=== PATIENT | male | born 1950 | race Two or more races ===

== ENCOUNTER 2019-03-23 02:14 | Inpatient (IN) | payer MEDICARE, MEDICAID ==
[2019-03-23] VITALS (56 sets, daily range): BP systolic 59–147; BP diastolic 41–109
[~2019-03-23] VITALS: Ht 170.2 cm; Wt 80.7 kg
--- NOTE | 2019-03-23 02:14 | NUR ---
PT BIB RA WITH A C/O RESP DISTRESS FROM HOME. PT ARRIVED ON BIPAP, TACHYPNEIC, RETRACTIONS NOTED, ACCESSORY MUSCLES NOTED. PT WAS ONLY ABLE TO SAY A FEW WORDS IN THE FIELD. PT HAS AN 18G LAC LAUNDRY PRESS OPERATOR. IV IS PATENT AND BENIGN. PT WAS PLACED ON THE MONITOR AND CONTINUOUS PULSE OX. RT IS AT THE BEDSIDE. DR. TURNER IS AT THE BEDSIDE.
--- NOTE | 2019-03-23 02:19 | NUR ---
18G IV STARTED IN RAC.
[2019-03-23] MEDS ORDERED: NTG 50 MG/D5W250 ML BOTTL 250 ML IV ONE ×2 (02:27→02:30)
[2019-03-23] MEDS ORDERED: FUROSEMIDE 40 MG/4 ML VIAL IV ONE (02:30)
[2019-03-23] MEDS ORDERED: FUROSEMIDE 40 MG/4 ML VIAL ONE (02:34)
--- NOTE | 2019-03-23 02:35 | NUR ---
ED, RN AT THE BEDSIDE STARTING NITRO DRIP
--- NOTE | 2019-03-23 02:35 | NUR ---
Note myra in ED - 03/23/19 at 0245 by [email or web address] PT STARTED ON NITRO DRIP AT 100MCG/MIN; 30ML/HR VIA 18G RAC.
[2019-03-23 02:42] LABS: BASOPHILS # (AUTO) 0.2 /CMM (0.0-0.2); BASOPHILS % (AUTO) 1.1 % (0.0-2.0); EOSINOPHILS % (AUTO) 6.8 % (0.0-6.0); HEMATOCRIT 41 % (39-51); HEMOGLOBIN 13.6 g/dL (13.5-17.5); LYMPHOCYTES # (AUTO) 6.5 /CMM (0.8-4.8); LYMPHOCYTES % (AUTO) 38.7 % (20.0-44.0); MEAN CORPUSCULAR HGB CONC 33 g/dl (31.0-36.0); MEAN CORPUSCULAR VOLUME 86 fL (80-96); MONOCYTES # (AUTO) 1.3 /CMM (0.1-1.30); MONOCYTES % (AUTO) 7.5 % (2.0-12.0); NEUTROPHILS # (AUTO) 7.7 /CMM (1.8-8.9); NEUTROPHILS % (AUTO) 45.9 % (43.0-81.0); PLATELET COUNT (AUTO) 276 /CMM (150-450); WHITE BLOOD COUNT (AUTO) 16.8 K/uL (4.3-11.0)
[2019-03-23] MEDS ORDERED: CLOP75TA15 PO (02:42)
--- NOTE | 2019-03-23 02:43 | NUR ---
Note myra in EDM - 03/23/19 at 0249 by [email or web address] NITRO DRIP INCREASED BY ED, RN TO 150MCG/MIN; 145ML/HR
--- NOTE | 2019-03-23 02:47 | NUR ---
CXR IN PROGRESS AT THE BEDSIDE.
[2019-03-23 02:51] LABS: CALCIUM, SERUM 8.9 mg/dL (8.5-10.1); CREATININE 2.8 mg/dL (0.6-1.3); POTASSIUM 4.2 mmol/L (3.5-5.1)
[2019-03-23] MEDS ORDERED: LIDOCAINE 2% JEL UROJET 10 ML MM ONE ×2 (02:51→03:00)
[2019-03-23 02:54] LABS: ABG BASE EXCESS -14.2 mmol/L; ABG OXYGEN SATURATION 93.5 % (92.0-98.5); ABG PCO2 81.4 mmHg (35.0-45.0); ABG PO2 106.7 mmHg (75.0-100.0); AaDO2 524.9 mmHg; COHb 0.5 % (0.5-1.5); SITE, ABG Right Radial
--- NOTE | 2019-03-23 02:55 | NUR ---
RT AND MD AT THE BEDSIDE PREPARING FOR INTUBATION. TIME OUT DONE. PT'S PH 6.9 AND CO2 81
--- NOTE | 2019-03-23 02:58 | NUR ---
20MG ETOMIDATE GIVEN VIA 18G LAC BY PEDRO TORRES
[2019-03-23] MEDS ORDERED: PROPOFOL 100 ML ONE ×2 (02:59→12:06)
--- NOTE | 2019-03-23 02:59 | NUR ---
100MG SUCC GIVEN IVP VIA 18G LAC BY PEDRO TORRES
--- NOTE | 2019-03-23 03:00 | NUR ---
DR TURNER INTUBATING
--- NOTE | 2019-03-23 03:01 | NUR ---
PT INTUBATED. 7.5 ETT AND 25@LIP + CO2 CHANGE NOTED.
[2019-03-23 03:03] LABS: ALBUMIN 3.5 g/dL (3.4-5.0); BILIRUBIN,DIRECT 0.1 mg/dL (0.0-0.2); BILIRUBIN,TOTAL 0.3 mg/dL (0.2-1.0); TOTAL PROTEIN, SERUM 8.1 g/dL (6.4-8.2)
[2019-03-23] MEDS ORDERED: FURO-144 PO (03:03)
[2019-03-23] MEDS ORDERED: ASPI-605 PO (03:03)
[2019-03-23] MEDS ORDERED: LOSA50TA3 PO (03:03)
[2019-03-23] MEDS ORDERED: ATOR20TA PO (03:03)
[2019-03-23] MEDS ORDERED: PANT40TA2 PO (03:03)
[2019-03-23] MEDS ORDERED: SITA100T PO (03:03)
--- NOTE | 2019-03-23 03:08 | NUR ---
LAMAR CATH INSERTED.
--- NOTE | 2019-03-23 03:14 | NUR ---
PT'S VENT SETTINGS: AC18 [id number] FIO2 90% PEEP 5
--- NOTE | 2019-03-23 03:18 | NUR ---
BED ASSIGNMENT 257
--- NOTE | 2019-03-23 03:20 | NUR ---
CALLING REPORT TO ICU. GARNETT MACHINE OPERATOR HELPER TO CALL BACK FOR REPORT.
--- NOTE | 2019-03-23 03:22 | NUR ---
@0239 PT PLACED ON BIPAP 20/5, 14, 100% PER DR. TURNER. ABG DONE AT 0248. NOTIFIED MD WITH CRITICAL VALUES. @[address] TURNER. 7.5 ETT SECURED AT 25CM AT THE LIP. GOOD COLOR CHANGE ON CO2 DETECTOR, EQUAL CHEST RISE, BILAT BREATH SOUND. PT PLACED ON 840 VENT, AC 18, 550, 90%, +5. VENT ALARMS SET AND AUDIBLE. AMBU BAG AT BEDSIDE. PT SX'D FOR LARGE AMT OF FOAMY WHITE SECRETIONS.
--- NOTE | 2019-03-23 03:25 | NUR ---
CXR IN PROGRESS AT THE BEDSIDE.
--- NOTE | 2019-03-23 03:51 | NUR ---
REPORT GIVEN TO PEDRO PEREZ
[2019-03-23] MEDS ORDERED: LORAZEPAM INJ 2 MG/ML VIAL ONE (04:16)
--- NOTE | 2019-03-23 04:26 | NUR ---
REPORT GIVEN TO PEDRO NANCE
[2019-03-23] MEDS ORDERED: ONDANSETRON HCL/PF 4 MG/2 ML VIAL IVP PRN (04:30)
[2019-03-23] MEDS ORDERED: NTG 50 MG/D5W250 ML BOTTL 250 ML IV PRN (04:30)
[2019-03-23] MEDS ORDERED: PROPOFOL 100 ML IV PRN (04:30)
[2019-03-23] MEDS ORDERED: SUCCINYLCHOLINE CHLORIDE 20 MG/ML VIAL IV ONE ×2 (04:30→09:23)
[2019-03-23] MEDS ORDERED: DEXTROSE 50%-WATER 50 ML DISP.SYRIN IV PRN (04:30)
[2019-03-23] MEDS ORDERED: LORAZEPAM INJ 2 MG/ML VIAL IV PRN (04:30)
[2019-03-23] MEDS ORDERED: LORAZEPAM INJ 2 MG/ML VIAL IV ONE (04:30)
[2019-03-23] MEDS ORDERED: ETOMIDATE 2 MG/ML VIAL IV ONE ×2 (04:30→09:23)
--- NOTE | 2019-03-23 04:49 | NUR ---
PT TRANSPORTED TO ICU
--- NOTE | 2019-03-23 04:51 | NUR ---
PT WAS TRANSPORTED TO ICU PER PROTOCOL WITH RT X2, EMT AND MYSELF.
[2019-03-23 05:15] LABS: ABG BASE EXCESS -8.6 mmol/L; ABG PCO2 60.7 mmHg (35.0-45.0); ABG PO2 154.8 mmHg (75.0-100.0); AaDO2 424.7 mmHg; COHb 0.1 % (0.5-1.5); MetHb 0.2 % (0.0-1.5); O2Hb 96.7 % (94.0-97.0); PEEP,BG 5 cm H2O; SITE, ABG Right Radial
--- NOTE | 2019-03-23 05:16 | NUR ---
POST INTUBATION ABG DONE. NOTIFIED MARISA VASQUEZ WITH THE RESULT.
[2019-03-23 05:21] LABS: BASOPHILS # (AUTO) 0.1 /CMM (0.0-0.2); BASOPHILS % (AUTO) 0.6 % (0.0-2.0); EOSINOPHILS % (AUTO) 0.5 % (0.0-6.0); HEMATOCRIT 35 % (39-51); HEMOGLOBIN 11.4 g/dL (13.5-17.5); LYMPHOCYTES # (AUTO) 0.8 /CMM (0.8-4.8); LYMPHOCYTES % (AUTO) 5.2 % (20.0-44.0); MEAN CORPUSCULAR HGB CONC 33 g/dl (31.0-36.0); MEAN CORPUSCULAR VOLUME 85 fL (80-96); MONOCYTES # (AUTO) 1.2 /CMM (0.1-1.30); MONOCYTES % (AUTO) 7.6 % (2.0-12.0); NEUTROPHILS # (AUTO) 13.4 /CMM (1.8-8.9); NEUTROPHILS % (AUTO) 86.1 % (43.0-81.0); PLATELET COUNT (AUTO) 234 /CMM (150-450); RED BLOOD CELL COUNT(AUTO) 4.07 MIL/uL (4.5-6.0); WHITE BLOOD COUNT (AUTO) 15.6 K/uL (4.3-11.0)
[2019-03-23 05:41] LABS: ALBUMIN 2.5 g/dL (3.4-5.0); BILIRUBIN,TOTAL 0.2 mg/dL (0.2-1.0); CALCIUM, SERUM 7.9 mg/dL (8.5-10.1); MAGNESIUM 1.7 mg/dL (1.8-2.4); PHOSPHORUS 6.4 mg/dL (2.5-4.9); POTASSIUM 4.7 mmol/L (3.5-5.1); TOTAL PROTEIN, SERUM 5.9 g/dL (6.4-8.2)
[2019-03-23 05:47] LABS: THYROID STIMULATING HORMONE 3.769 uIU/mL (0.358-3.74)
[2019-03-23] MEDS ORDERED: PIPERACILLIN /TAZOBACTAM 3.375 G in IV D5W 50 ML IV ONE (06:00)
[2019-03-23] MEDS ORDERED: VANCOMYCIN 1 GM in IV D5W 250ml IV ONE (06:00)
[2019-03-23] MEDS ORDERED: NOREPINEPHRINE 4 MG/4 ML AMPUL IV ONE (06:03)
[2019-03-23] MEDS ORDERED: PIPERACILLIN /TAZOBACTAM 3.375 G VIAL IV ONE (06:15)
[2019-03-23] MEDS: BLOOD SUGAR DIAGNOSTIC 1 EACH STRIP IN SCH ×3 (06:29→18:02)
[2019-03-23] MEDS: INSULIN REGULAR, HUMAN 100 UNIT/ML 3 ML VIAL SQ PRN ×3 (06:31→18:04)
[2019-03-23] MEDS ORDERED: VANCOMYCIN 1 GM VIAL ONE (06:32)
[2019-03-23] MEDS ORDERED: HEPARIN INFUSION/D5W 500 ML IV PRN ×2 (07:00→15:00)
[2019-03-23] MEDS ORDERED: FEE PK DOSING 1 MIN EA MC ONE (07:25)
--- NOTE | 2019-03-23 07:54 | NUR ---
RT Pt received orally intubated on mechanical ventilation with noted settings. Vent is plugged into red outlet. There is some noticeable mild abdominal muscle usage. No respiratory distress noted. Addendum: 03/23/19 at 1016 by LISA MCKINLEY RT Amended: Links added.
--- NOTE | 2019-03-23 07:59 | NUR ---
TALENT AGENT. RECEIVED THE PT FROM ER VIA AICHA. AT 0410 ORALLY INTUBATED. SEDATED WITH DIPRIVAN. AYE SOFT WRIST RESTRAINT FC PATENT. RT NARE NGT INTACT, IV RT AND LT HAND. IV NITRO AND DIPRIVAN STARTED FROM ER.
[2019-03-23] MEDS ORDERED: PHENYLEPHRINE 20 MG in IV D5W 250 ML IV PRN (08:00)
--- NOTE | 2019-03-23 08:00 | NUR ---
RN NOTE: RECEIVED BEDSIDE REPORT FROM THE LABORATORY SECRETARY NURSE MARISA REGARDING THE PATIENT'S CONDITION. PATIENT WAS RECEIVED INTUBATED WITH ETT 7.5 AND SECURED ON THE LIP AT 25 CM. NO RESPIRATORY DISTRESS NOTED WITH CURRENT MECHANICAL VENTILATOR SETTING SATURATING 100%. IMMEDIATE FAMILY WERE AT THE BEDSIDE. HOB ELEVATED. PATIENT WAS INFUSING DIPRIVAN AT 20MCG/MIN AND LEVOPHED AT 2MCG/MIN. PER REPORT, DR. BELL CAME EARLY THIS MORNING AND SAW THE PATIENT. MD WANTED TO SWITCH THE PATIENT TO NEOSYNEPHRINE. ORDER WAS PLACED AND PHARMACIST BETSY WAS MADE AWARE. NGT WAS PLACED AND PLACEMENT WAS VERIFIED BY FLUSHING AIR AND WAS CHECKED WITH ANOTHER NURSE, Abel MCCLOUD RN. PATIENT KEPT NPO AT THIS TIME PER MD ORDER. (R) AC 18G AND (L) HAND 18 G WAS NOTED INTACT AND PATENT INFUSING BOTH DIPRIVAN AND LEVOPHED DRIP. LAMAR CATHETER IN PLACED WITH MINIMAL YELLOW URINE DRAINING TO GRAVITY. BED ALARMED AND LOCKED AT ALL TIMES. NEEDS ANTICIPATED.
[2019-03-23] MEDS: NOREPINEPHRINE 16 MG in IV D5W 500 ML IV PRN ×2 (08:10→16:04)
[2019-03-23] MEDS: PROPOFOL 100 ML IV PRN ×2 (08:13→19:00)
--- NOTE | 2019-03-23 08:15 | NUR ---
RN NOTE: DR. MELENDREZ MADE AWARE OF THE TROPONIN LEVEL 4.333. AND NO NEW ORDER AT THIS TIME. PATIENT WAS PENDING FOR A HEPARIN DRIP DUE TO THE BASELINE PT/PTT LEVEL. AWARE.
--- NOTE | 2019-03-23 08:31 | NUR ---
RN NOTE: PATIENT HAS AN ORDER FOR A HEPARIN DRIP, AND A BASELINE PT/PTT STAT ORDER WAS PLACED. CALLED AND SPOKE WITH BENEDICTO, EXCELSIOR MACHINE OPERATOR FROM LAB AND MADE HER AWARE.
--- NOTE | 2019-03-23 08:35 | NUR ---
RN NOTE: INFORMED THE NECK BAND SETTER ROSA REGARDING THE ORDER FOR PICC LINE INSERTION FOR THE PATIENT. CONSENT WAS SIGNED BY THE PATIENT'S DAUGHTER WITNESSED BY THE NOC SHIFT NURSE AND WAS FILED TO THE PATIENT'S CHART.
[2019-03-23 08:44] LABS: THYROID STIMULATING HORMONE 3.181 uIU/mL (0.358-3.74)
--- NOTE | 2019-03-23 08:48 | NUR ---
RN NOTE: PAGED DR. MELENDREZ REGARDING THE PATIENT'S TROPONIN LEVEL 4.333. STILL AWAITING FOR THE PT/PTT STAT BLOOD DRAW FROM LAB. HEPARIN DRIP STILL ON HOLD. SPOKE WITH BENEDICTO QA REVIEWER AND SHE SAID THAT SHE WILL BE DRAWING IT SHORTLY.
[2019-03-23] MEDS ORDERED: ASPIRIN EC 81 MG TABLET.DR PO SCH (09:00)
[2019-03-23] MEDS ORDERED: FUROSEMIDE 40 MG/4 ML VIAL IV SCH (09:00)
[2019-03-23] MEDS ORDERED: Medication Not On Formulary EA (Atorvastatin Calcium (Lipitor) 20 MG) PO SCH (09:00)
[2019-03-23] MEDS ORDERED: PANTOPRAZOLE 40 MG TABLET.DR PO SCH (09:00)
[2019-03-23] MEDS ORDERED: LINAGLIPTIN 5 MG TABLET PO SCH (09:00)
[2019-03-23] MEDS ORDERED: PANTOPRAZOLE 40 MG VIAL IV SCH (09:00)
[2019-03-23] MEDS ORDERED: LOSARTAN POTASSIUM 50 MG TABLET PO SCH (09:00)
[2019-03-23] MEDS ORDERED: CLOPIDOGREL BISULFATE 75 MG TABLET PO SCH (09:00)
[2019-03-23] MEDS ORDERED: ATORVASTATIN 10 MG TABLET PO SCH (09:00)
--- NOTE | 2019-03-23 09:00 | NUR ---
RN NOTE: CONE TREATER WAS AT THE BEDSIDE DRAWING THE PT/PTT STAT. FAMILY AT THE BEDSIDE.
--- NOTE | 2019-03-23 09:03 | NUR ---
RN NOTE: DR. BELL WAS AT THE BEDSIDE AND HE WAS INFORMED THAT THE HEPARIN DRIP WAS STILL ON HOLD DUE TO THE PENDING PT/PTT RESULT. PER DR. BELL DO NOT START THE HEPARIN DRIP. PATIENT WILL BE SCHEDULE AT 12NN FOR A CARDIAC CATHETERIZATION UNDER THE SUPERVISION OF DR. KELLER. PATIENT'S FAMILY WAS AT THE BEDSIDE AND DR. BLEL WAS EXPLAINING THE PROCEDURE.
--- NOTE | 2019-03-23 09:06 | NUR ---
RN NOTE: SPOKE WITH DR. MELENDREZ REGARDING THE PATIENT'S LACTIC ACID REFLEX 2.3 AND INFORMED HER ABOUT THE (R) NARE NGT CLAMPED. PER MD, OK TO ADMINISTER PO MEDS THROUGH THE NGT BUT HOLD FOR NOW DUE TO THE PLANNED CARDIAC CATHETERIZATION WITH DR. KELLER @12NN.
[2019-03-23] MEDS ORDERED: FEE EMEERGENCY 1 MIN EA MC ONE (09:23)
[2019-03-23 09:41] LABS: ABG BASE EXCESS -6.3 mmol/L; ABG OXYGEN SATURATION 97.2 % (92.0-98.5); ABG PH 7.386 (7.350-7.450); ABG PO2 255.8 mmHg (75.0-100.0); AaDO2 211.1 mmHg; COHb 0.2 % (0.5-1.5); MetHb 0.2 % (0.0-1.5); O2Hb 96.8 % (94.0-97.0); PEEP,BG 5 cm H2O; SITE, ABG Right Radial; VT, ABG 600 mL
[2019-03-23] MEDS ORDERED: IV D5W 500 ML IV ONE (09:45)
[2019-03-23] MEDS: Magnesium 1GM/D5W 100ML PREMIX 100 ML IV SCH ×2 (09:56→11:20)
[2019-03-23] MEDS ORDERED: HEPARIN SODIUM, PORCINE 5000 UNITS/1 ML VIAL IV ONE (10:00)
[2019-03-23] MEDS ORDERED: LIDOCAINE HCL/PF 1% 30 ML SDV ONE (10:56)
[2019-03-23] MEDS ORDERED: IODIXANOL 150 ML IV ONE (10:56)
--- NOTE | 2019-03-23 11:20 | NUR ---
RN NOTE: PATIENT'S DAUGHTER MOODY WAS AT THE BEDSIDE AND SIGNED THE INFORMED CONSENT FOR THE CARDIAC CATHETERIZATION. FILED ON THE PATIENT'S CHART.
--- NOTE | 2019-03-23 11:30 | NUR ---
RN NOTE: Patient was brought to the lab director for the procedure explained by Dr. Helms at the bedside to the family. aBrry Salas was present upon patient's transport. Patient was accompanied by 2 RTs and 1 lab director nurse Nuvia. Patient was transported via ACLS protocol. Neosynephrine and Diprivan drip were both continuously given to the patient. Barry Salas brought the patient's full dentures with her. No belongings were left at the bedside.
--- NOTE | 2019-03-23 11:40 | NUR ---
RT Pt was transported to labor conciliator for procedure. Addendum: 03/23/19 at 1243 by LISA MCKINLEY RT Amended: Links added.
[2019-03-23] MEDS ORDERED: IV NS 0.9% 1,000 ML ONE (11:47)
[2019-03-23] MEDS ORDERED: PIPERACILLIN /TAZOBACTAM 3.375 G in IV D5W 100 ML IV SCH (12:00)
[2019-03-23] MEDS ORDERED: PIPERACILLIN /TAZOBACTAM 3.375 G in IV D5W 50 ML IV SCH (12:00)
[2019-03-23] MEDS ORDERED: MIDAZOLAM HCL 2 MG/2ML VIAL ONE (12:21)
[2019-03-23] MEDS ORDERED: IV SET PRIMARY PUMP SET 1 EA INFUS.SET MC ONE (12:32)
--- NOTE | 2019-03-23 14:12 | NUR ---
RT Pt brought back to ICU from fence laborer. Addendum: 03/23/19 at 1421 by LISA MCKINLEY RT Amended: Links added.
--- NOTE | 2019-03-23 14:15 | NUR ---
RN NOTE: RECEIVED PATIENT FROM INTERNAL CONTROLS MANAGER S/P CARDIAC CATHERIZATION UNDER DR. KELLER'S SUPERVISION. BEDSIDE REPORT WAS RECEIVED FROM PEDRO SALAS FROM INTERNAL CONTROLS MANAGER INCLUDING PEDRO JAMIL FROM INTERNAL CONTROLS MANAGER. PATIENT WAS INSERTED WITH A BALLOON PUMP AND A CONSERVATION OF RESOURCES COMMISSIONER WAS PROVIDED TO MONITOR THE PATIENT CLOSELY AT THE BEDSIDE. PATIENT WAS NOTED WITH GOOD CAPILLARY REFILL <3 SEC WITH GOOD PERIPHERAL PULSES ON THE (B) UPPER EXTREMITIES AND (L) LOWER PEDAL PULSE AND (R) PEDAL PULSE WAS NOTED WEAK. (R) LEG WAS KEPT STRAIGHT S/P CARDIAC CATHERIZATION AND DR. KELLER ORDERED TO CONTINUE LEVOPHED DRIP TO KEEP SBP >100MMHG. PATIENT WAS LYING FLAT ON THE BED WITH A (R) FEMORAL TRIPLE LUMEN CATHETER INSERTED FROM THE INTERNAL CONTROLS MANAGER. (R) SOFT LEG RESTRAINT WAS IN PLACED TO KEEP THE EXTREMITY STRAIGHT S/P CARDIAC CATH. PATIENT WAS RECEIVING DIPRIVAN 30MCG/MIN AND LEVOPHED 7MCG/MIN. PER PEDRO SALAS HE HAS BEEN UPDATING THE PATIENT'S DAUGHTER MOODY REGARDING THE STATUS OF THE PATIENT'S CONDITION.
--- NOTE | 2019-03-23 14:30 | NUR ---
RN NOTE: RECEIVED A PHONE CALL FROM PEDRO JAMIL FROM CARDIAC RESERVE OPERATOR AND PER VERBAL ORDER OF DR. ARIANNA MOORE TO START HEPARIN DRIP W Addendum: 03/23/19 at 1431 by KATHERYN MATA RN HEPARIN DRIP WITHOUT BOLUS. ORDER, NOTED AND CARRIED OUT.
--- NOTE | 2019-03-23 14:58 | NUR ---
RN NOTE: PATIENT WAS STARTED ON HEPARIN DRIP PER [facility] PROTOCOL WITH NO HEPARIN BOLUS PER DR. KELLER. SPOKE WITH [facility], PHARMACIST REGARDING THE ORDER. HEPARIN DOSE WAS STARTED RIGHT AWAY. WILL CONTINUE TO MONITOR FOR ANY BLEEDING.
--- NOTE | 2019-03-23 17:20 | NUR ---
RN NOTE: CALLED AND SPOKE WITH PEDRO PRECIADO FROM [facility] AND INFORMED HER THAT A REPORT REGARDING THE PATIENT TRANSFER WILL BE GIVEN. PER PEDRO PRECIADO SHE SPOKE WITH THE UNIT CHARGE NURSE ASPEN AND SHE WANTED THE TOP COATER NURSE TO GIVE REPORT TO THEM. PER SAM LOUISE NURSE THERE IS NO AVAILABLE NURSE THAT CAN TAKE THE REPORT AT THIS TIME. LILIANA, TAIL BOARD WORKER AND THE PATIENT'S DAUGHTER MOODY WERE INFORMED ABOUT IT. WILL RELAY TO THE TOP COATER NURSE REGARDING THE REPORT TO CALL AT [facility] INCLUDING THE DETAILS OF THE TRANSFER. CHARGE NURSE RUFFIN WAS ALSO AWARE.
--- NOTE | 2019-03-23 18:00 | NUR ---
RN NOTE: PATIENT'S LACTIC ACID WAS RESULTED 2.[address] MELENDREZ MADE AWARE OF IT. MD INFORMED OF THE LACTIC ACID TREND SINCE MORNING. MD WAS AWARE THAT PATIENT WAS PENDING TRANSFER TONIGHT AT [facility]. NO NEW ORDER WAS GIVEN AT THIS TIME.
--- NOTE | 2019-03-23 19:00 | NUR ---
RECEIVED PATIENT ORALLY INTUBATED,SEDATED ON PROPOFOL DRIP @ 30 MCG/MIN, + COUGH AND GAG,GRIMACES TO PAIN, NOT IN ANY DISTRESS, ON THE VENTILATOR ON AC MODE. ON LEVOPHED DRIP FOR BP SUPPORT INFUSING VIA RIGHT FEMORAL TRIPLE LUMEN CATH., IABP VIA RIGHT FEMORAL ON A 1:1 AUGMENTATION. PATIENT FOR TRANSFER TO [facility] FOR FURTHER MANAGEMENT AND EVALUATION OF FURTHER CARDIAC MANAGEMENT.
--- NOTE | 2019-03-23 19:25 | NUR ---
RN NOTE: BEDSIDE REPORT WAS GIVEN TO PM SHIFT NURSE FOR CONTINUITY OF CARE INCLUDING THE REPORT TO CALL AT [facility] AND ENDORSED ALL THE PAPERWORK COPIED FOR THE PATIENT'S TRANSFER. PARTIAL EXIT CARE WAS DONE AND THE CD IMAGING WAS ALSO ATTACHED TO THE DISCHARGE PACKET.
--- NOTE | 2019-03-23 20:30 | NUR ---
REPORT GIVEN TO [facility] MANAGER INTERN GERRY VASQUEZ.
--- NOTE | 2019-03-23 21:00 | NUR ---
TRANSPORT HERE TO PICK UOP THE PATIENT.REPORT GIVEN .
--- NOTE | 2019-03-23 22:00 | NUR ---
PTT=84.7 , PER PROTOCOL HOLD FOR 30 MINS. THEN RESUME 850 UNITS/HR( DECREASE RATE BY 150 UNITS FROM 1000 UNITS/HR)
--- NOTE | 2019-03-23 22:35 | NUR ---
PATIENT LEFT FOR [facility] BY [facility]. STABLE, BP=96/53,HR=68/RR=26,SAT=98%. LEVOPHED DRIP @ 8 MCG/MIN, PROPOFOL DRIP @ 30 MCG/MIN(SEDATED WITH RASS -3.HEPARIN DRIP RESUMED BACK @ 850 UNITS/HR. NO S/S OF ANY BLEEDING.
--- NOTE | 2019-03-23 22:45 | NUR ---
CALLED GERRY VASQUEZ @ [facility] TO UPDATE ON PATIENT STATUS .
[2019-03-24] MEDS ORDERED: VANCOMYCIN 1 GM in IV D5W 250 ML IV SCH (06:00)
== END 2019-03-23 23:19 | disposition short-term general hospital (02) | DRG 853 ==
LOC: ER 02:16 → ICU 03:27
PROVIDERS: ADMIT Registered Nurse; ATTEND Student in an Organized Health Care Education/Training Program
PROC: 5A1935Z Respiratory Ventilation, Less than 24 Consecutive Hours (ICD-10-PCS; principal; 2019-03-23)
PROC: 0BH17EZ Insertion of Endotracheal Airway into Trachea, Via Natural or Artificial Opening (ICD-10-PCS; 2019-03-23)
PROC: 5A09357 Assistance with Respiratory Ventilation, Less than 24 Consecutive Hours, Continuous Positive Airway Pressure (ICD-10-PCS; 2019-03-23)
PROC: 5A02210 Assistance with Cardiac Output using Balloon Pump, Continuous (ICD-10-PCS; 2019-03-23)
PROC: 4A023N7 Measurement of Cardiac Sampling and Pressure, Left Heart, Percutaneous Approach (ICD-10-PCS; 2019-03-23)
PROC: B211YZZ Fluoroscopy of Multiple Coronary Arteries using Other Contrast (ICD-10-PCS; 2019-03-23)
PROC: 06HY33Z Insertion of Infusion Device into Lower Vein, Percutaneous Approach (ICD-10-PCS; 2019-03-23)
DX: A41.9 Sepsis, unspecified organism (principal); J96.01 Acute respiratory failure with hypoxia; J96.02 Acute respiratory failure with hypercapnia; G92 Toxic encephalopathy; J69.0 Pneumonitis due to inhalation of food and vomit; N17.0 Acute kidney failure with tubular necrosis; R65.21 Severe sepsis with septic shock; J15.6 Pneumonia due to other Gram-negative bacteria; I21.A1 Myocardial infarction type 2; E44.0 Moderate protein-calorie malnutrition; I13.0 Hypertensive heart and chronic kidney disease with heart failure and stage 1 through stage 4 chronic kidney disease, or unspecified chronic kidney disease; E87.2 Acidosis; E86.0 Dehydration; E78.5 Hyperlipidemia, unspecified; I25.5 Ischemic cardiomyopathy; N18.9 Chronic kidney disease, unspecified; K21.9 Gastro-esophageal reflux disease without esophagitis; E11.22 Type 2 diabetes mellitus with diabetic chronic kidney disease; Z68.27 Body mass index [BMI] 27.0-27.9, adult; I25.10 Atherosclerotic heart disease of native coronary artery without angina pectoris; I25.82 Chronic total occlusion of coronary artery; I50.9 Heart failure, unspecified
CPT/HCPCS: 31720; 33967; 36415; 36600; 71045-TC; 80048-TC; 80053-TC; 80061-TC; 80076-TC; 82728-TC; 82803-TC; 82962-TC; 83540-TC; 83605-TC; 83735-TC; 83880; 84100-TC; 84439-TC; 84443-TC; 84484-TC; 85025-TC; 85610-TC; 85730-TC; 87040-TC; 87070-TC; 87081-TC; 93307-TC; 93452; 94002-TC; 94640-TC; 94760-TC; 94799-TC; 99082-TC; C1751; C1894; C9113; G0378; J0330; J1644; J1815; J1940; J2060; J2250; J2370; J2543; J3370; J3475; J3490; J7040; J7050; J7060; Q9967

== ENCOUNTER 2022-02-26 07:06 | Inpatient (IN) | payer MEDICARE, OTHER ==
[~2022-02-26] VITALS: Ht 172.7 cm; Wt 80.7 kg
[~2022-02-26 07:06] MED LIST: ASPI-605 PO; ATOR20TA PO; CLOP75TA15 PO; FURO-144 PO; LOSA50TA3 PO; PANT40TA2 PO; SITA100T PO
--- NOTE | 2022-02-26 07:25 | NUR ---
SUSAN Dunham FROM HOME FOR C.O SOB. SATTING 88% ON R/A. ON HD. LASTDIALYSIS ON FRIDAY
[2022-02-26] MEDS ORDERED: FUROSEMIDE 40 MG/4 ML VIAL ONE (07:27)
[2022-02-26] MEDS ORDERED: FUROSEMIDE 40 MG/4 ML VIAL IV ONE (07:30)
--- NOTE | 2022-02-26 07:30 | NUR ---
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
--- NOTE | 2022-02-26 07:40 | NUR ---
EKG DONE BY TECH
--- NOTE | 2022-02-26 07:45 | NUR ---
COVID SWAB COLLECTED AND SENT TO LAB
--- NOTE | 2022-02-26 07:56 | NUR ---
REGULATORY CONSULTANT AT BEDSIDE FOR XRAY
--- NOTE | 2022-02-26 08:00 | NUR ---
MOVE SHEET SUBMITTED.
--- NOTE | 2022-02-26 08:15 | NUR ---
DR VALE SPEAKING W/ PT AT BEDSIDE
[2022-02-26 08:22] LABS: CARBON DIOXIDE 23 mmol/L (21-32); CHLORIDE 102 mmol/L (98-107); GLUCOSE 157 mg/dL (74-106); POTASSIUM 5.4 mmol/L (3.5-5.1); SODIUM SERUM 143 mmol/L (136-145)
[2022-02-26 08:28] LABS: CREATININE 11.3 mg/dL (0.6-1.3); UREA NITROGEN, BLOOD 89 mg/dL (7-18)
[2022-02-26 08:30] LABS: BASOPHILS # (AUTO) 0.1 K/uL (0.0-0.2); BASOPHILS % (AUTO) 0.8 % (0.0-2.0); EOSINOPHILS % (AUTO) 3.6 % (0.0-6.0); HEMATOCRIT 33 % (39-51); HEMOGLOBIN 10.6 g/dL (13.5-17.5); LYMPHOCYTES # (AUTO) 1.6 K/uL (0.8-4.8); LYMPHOCYTES % (AUTO) 15.2 % (20.0-44.0); MEAN CORPUSCULAR HGB CONC 32 g/dl (31.0-36.0); MEAN CORPUSCULAR VOLUME 83 fL (80-96); MONOCYTES # (AUTO) 0.8 K/uL (0.1-1.30); MONOCYTES % (AUTO) 7.7 % (2.0-12.0); NEUTROPHILS # (AUTO) 7.5 K/uL (1.8-8.9); NEUTROPHILS % (AUTO) 72.7 % (43.0-81.0); PLATELET COUNT (AUTO) 208 K/uL (150-450); RED BLOOD CELL COUNT(AUTO) 4.02 MIL/uL (4.5-6.0); WHITE BLOOD COUNT (AUTO) 10.3 K/uL (4.3-11.0)
[2022-02-26 08:34] LABS: ALANINE AMINOTRANSFERASE 13 U/L (12-78); ALBUMIN 3.9 g/dL (3.4-5.0); ALKALINE PHOSPHATASE 118 U/L (46-116); ASPARTATE AMINOTRANSFERASE 10 U/L (15-37); BILIRUBIN,DIRECT 0.2 mg/dL (0.0-0.2); BILIRUBIN,TOTAL 0.4 mg/dL (0.2-1.0); TOTAL PROTEIN, SERUM 8.3 g/dL (6.4-8.2)
--- NOTE | 2022-02-26 08:39 | NUR ---
BUN 89 , CREA 11.3 MADE AWARE
--- NOTE | 2022-02-26 08:43 | NUR ---
TROPONIN 184 MADE AWARE
[2022-02-26] MEDS ORDERED: MAG HYDROX/AL HYDROX/SIMETH 30 ML UDC PO PRN (09:30)
[2022-02-26] MEDS ORDERED: MAGNESIUM HYDROXIDE 30 ML UDC PO PRN (09:30)
[2022-02-26] MEDS ORDERED: ZOLPIDEM TARTRATE 5 MG TABLET PO PRN (09:30)
[2022-02-26] MEDS ORDERED: Z GUARD REMEDY 4 OZ OINT TP PRN (09:30)
[2022-02-26] MEDS ORDERED: ACETAMINOPHEN 325 MG TABLET PO PRN (09:30)
[2022-02-26] MEDS ORDERED: ONDANSETRON HCL/PF 4 MG/2 ML VIAL IVP PRN (09:30)
--- NOTE | 2022-02-26 09:37 | NUR ---
dr. waite at bedside for eval
[2022-02-26] MEDS ORDERED: AMLO-212 PO (09:56)
[2022-02-26] MEDS ORDERED: METO25TA20 PO (09:56)
[2022-02-26] MEDS ORDERED: ISOS10TA2 PO (09:56)
[2022-02-26] MEDS ORDERED: AMIO200T5 PO (09:56)
[2022-02-26] MEDS ORDERED: INSU100V11 SQ (09:56)
[2022-02-26] MEDS ORDERED: HYDR-4077 PO (09:56)
--- NOTE | 2022-02-26 11:45 | NUR ---
tech at bedside for echocardiogram
--- NOTE | 2022-02-26 12:31 | NUR ---
GOT BED 324-1.
--- NOTE | 2022-02-26 12:43 | NUR ---
report given to tin senior ready to transfer
--- NOTE | 2022-02-26 13:08 | NUR ---
PT TRANSFERRED TO 324-1 VIA [facility] ACLS PROTOCOL. WARM HANDOFF GIVEN TO PEDRO NATH.
--- NOTE | 2022-02-26 13:10 | NUR ---
ADMISSION NOTE Received patient from ER via mervin. Report given by PEDRO Hough from ER. Patient is A/O x 3, forgetful. On O2 at 5 LPM via NC, complaining of SOB. Patient oriented to room and how to use the call light. VS taken as follows: BP 189/89, HR 75, Temp 38.7, RR, 20, SPO2 96% on [address] Stanford notified of patient's BP. Patient refused skin assessment at this time, was irritable and agitated because of SOB and was also complaining of chest pain, Dr. Stanford notified with that as well. All belongings accounted for, belonging sheet signed. Safety precautions in place: bed in low, locked position; siderails up x 2; call light within reach. Will continue to monitor. Addendum: 02/26/22 at 1949 by SOPHY FRANCISCO RN ADD: IV access on Right hand #22 SL, intact and patent. Tele monitor attached, showing SR, with 1st degree block.
[2022-02-26] MEDS: hydrALAZINE HCL 25 MG TABLET PO PRN (13:52)
[2022-02-26] MEDS ORDERED: NITROGLYCERIN PACKET 1 GM PACKET TOP PRN (14:00)
[2022-02-26] MEDS: MORPHINE SULFATE INJ 2 MG/ML DISP.SYRIN IV PRN (14:00)
[2022-02-26 16:00] VITALS: BP 178/79
[2022-02-26] MEDS ORDERED: EPOETIN ALFA-EPBX 10,000 UNIT/ML VIAL IV ONE (16:00)
--- NOTE | 2022-02-26 16:30 | NUR ---
RN NOTE Received critical value received from lab, Troponin level is 203. Dr. Stanford and Dr. Helms notified, no new orders at this time.
[2022-02-26] MEDS ORDERED: *INSULIN REGULAR(HUMULIN R)HUM 100 UNIT/ML VIAL SQ PRN (18:30)
[2022-02-26] MEDS ORDERED: DEXTROSE 50%-WATER 50 ML DISP.SYRIN IV PRN (18:30)
[2022-02-26] MEDS ORDERED: INSULIN REGULAR, HUMAN 100 UNIT/ML 3 ML VIAL SQ PRN (18:30)
--- NOTE | 2022-02-26 19:30 | NUR ---
PT RECEIVED RESTING IN BED WITH DAUGHTER AT BEDSIDE. A/OX3. FORGETFUL. WITH 02 VIA NC AT 5LPM. RT HAND IV ACCESS G#22 ON SL. SAFETY MEASURES IN PLACE. HOB SLIGHTLY ELEVATED, BED LOCKED IN LOWEST POSITION, SIDE RAILS UP X2, BED ALARM ON, CALL LIGHT WITHIN REACH. WILL CONTINUE PLAN OF CARE.
--- NOTE | 2022-02-26 19:49 | NUR ---
AUTOMOBILE ACCESSORIES SALESPERSON CLOSING NOTE Patient in bed, resting. A/O x 3, forgetful. On O2 at 5 LPM via NC, no s/s of distress noted. IV access on Right hand #22 SL, intact and patent. Patient currently on hemodialysis. KARISSA fistula noted. Patient reports decreased in chest pain and improved SOB. Safety precautions maintained: bed in low, locked position; siderails up x2; call light within reach. Will endorse to night guard nurse for AMY.
[2022-02-26 20:00] VITALS: BP 155/70
[2022-02-26] MEDS: ATORVASTATIN 40 MG TABLET PO SCH (22:03)
[2022-02-26] MEDS: BLOOD SUGAR DIAGNOSTIC 1 EACH STRIP VI SCH (22:03)
--- NOTE | 2022-02-26 23:26 | NUR ---
Pt's troponin is 279. MD notified.
[2022-02-27] VITALS: BP 186/84
[2022-02-27] MEDS: hydrALAZINE HCL 25 MG TABLET PO PRN ×2 (02:46→23:29)
--- NOTE | 2022-02-27 02:55 | NUR ---
BP 186/84. Prn Apresoline 25mg tab po given as ordered. Will continue to monitor.
[2022-02-27 04:00] VITALS: BP 178/72
--- NOTE | 2022-02-27 06:15 | NUR ---
PT ASLEEP IN BED. EASILY AWAKEN BY CALLING HIS NAME. A/OX3. FORGETFUL. WITH 02 VIA NC AT 5LPM. NO COMPLAINTS OF PAIN, NOT IN DISTRESS, RT HAND IV ACCESS G#22 ON SL. DUE MEDS AND PRN MEDS GIVEN NEEDED AND OREDERED. NEEDS ATTENDED. SAFETY MEASURES MAINTAINED. HOB SLIGHTLY ELEVATED, BED LOCKED IN LOWEST POSITION, SIDE RAILS UP X2, BED ALARM ON, CALL LIGHT WITHIN REACH. WILL ENDORSE TO NEXT NURSE ON DUTY FOR CONTINUITY OF CARE.
[2022-02-27 07:22] LABS: CALCIUM, SERUM 8.9 mg/dL (8.5-10.1); PHOSPHORUS 5.9 mg/dL (2.5-4.9)
[2022-02-27] MEDS ORDERED: PANTOPRAZOLE 40 MG TABLET.DR PO SCH (07:30)
[2022-02-27 07:44] LABS: BASOPHILS # (AUTO) 0.1 K/uL (0.0-0.2); BASOPHILS % (AUTO) 0.7 % (0.0-2.0); EOSINOPHILS % (AUTO) 1.2 % (0.0-6.0); HEMATOCRIT 30 % (39-51); HEMOGLOBIN 9.9 g/dL (13.5-17.5); LYMPHOCYTES # (AUTO) 0.5 K/uL (0.8-4.8); LYMPHOCYTES % (AUTO) 5.7 % (20.0-44.0); MEAN CORPUSCULAR HGB CONC 33 g/dl (31.0-36.0); MEAN CORPUSCULAR VOLUME 82 fL (80-96); MONOCYTES # (AUTO) 0.9 K/uL (0.1-1.30); MONOCYTES % (AUTO) 9.1 % (2.0-12.0); NEUTROPHILS # (AUTO) 7.9 K/uL (1.8-8.9); NEUTROPHILS % (AUTO) 83.3 % (43.0-81.0); PLATELET COUNT (AUTO) 174 K/uL (150-450); RED BLOOD CELL COUNT(AUTO) 3.66 MIL/uL (4.5-6.0); WHITE BLOOD COUNT (AUTO) 9.4 K/uL (4.3-11.0)
[2022-02-27 07:52] LABS: POTASSIUM 5.2 mmol/L (3.5-5.1)
[2022-02-27 07:57] LABS: CREATININE 8.3 mg/dL (0.6-1.3)
[2022-02-27 08:00] VITALS: BP 189/83
[2022-02-27] MEDS: BLOOD SUGAR DIAGNOSTIC 1 EACH STRIP VI SCH ×4 (08:44→21:36)
[2022-02-27] MEDS: METOPROLOL TARTRATE 25 MG TABLET PO SCH ×2 (08:45→17:25)
[2022-02-27] MEDS: CLOPIDOGREL BISULFATE 75 MG TABLET PO SCH (08:45)
[2022-02-27] MEDS: AMLODIPINE BESYLATE 5 MG TABLET PO SCH ×2 (08:46→17:26)
[2022-02-27] MEDS: ISOSORBIDE DINITRATE (20MG) 20 MG TABLET PO SCH ×2 (08:46→17:27)
[2022-02-27] MEDS: hydrALAZINE HCL 50 MG TABLET PO SCH ×3 (08:47→17:26)
[2022-02-27] MEDS: PANTOPRAZOLE 40 MG TABLET.DR PO SCH (08:47)
[2022-02-27] MEDS: MORPHINE SULFATE INJ 2 MG/ML DISP.SYRIN IV PRN (08:58)
[2022-02-27] MEDS ORDERED: hydrALAZINE HCL 50 MG TABLET PO SCH (09:00)
[2022-02-27] MEDS ORDERED: ISOSORBIDE DINITRATE (10MG) 10 MG TABLET PO SCH (09:00)
[2022-02-27] MEDS ORDERED: AMLODIPINE BESYLATE 5 MG TABLET PO SCH (09:00)
[2022-02-27] MEDS ORDERED: FUROSEMIDE 40 MG TABLET PO SCH (09:00)
[2022-02-27 12:00] VITALS: BP_SYST 141; BP_SYST 145; BP_DIAS 69; BP_DIAS 71
[2022-02-27 16:00] VITALS: BP_SYST 152; BP_SYST 155; BP_DIAS 68; BP_DIAS 76
--- NOTE | 2022-02-27 19:35 | NUR ---
SAP ABAP DEVELOPER CLOSING NOTE PATIENT RECEIVED IN BED AN AWAKE. A/OX4 AND ABLE TO VERBALIZE NEEDS. IV ACCESS REMAINS INTACT AND PATENT. SALINE LOCKED AT THIS TIME. PATIENT RECEIVED BEDSIDE HEMODIALYSIS ON SHIFT. 2.5L TAKEN OFF. PATIENT TOLERATED WELL. BS CHECKS STABLE SHIFT ON SHIFT @ 101 & 116; NO COVERAGE NEEDED. C/O GENERALIZED PAIN AND RECEIVED MORPHINE @ 0905. MEDICATION EFFECTIVE. BLOOD PRESSURES STABLE AND CONTROLLED ON SHIFT. SAFETY MEASURES INTACT WITH BED LOW AND LOCKED. CALL LIGHT WITHIN REACH. WILL CONT TO MONITOR
--- NOTE | 2022-02-27 19:40 | NUR ---
RETAIL CENTER RECEPTIONIST OPENING NOTE RECEIVED PT AWAKE IN BED. JUAN CARLOS AT BEDSIDE. A/O X4 AND ABLE TO MAKE NEEDS KNOWN. PT ON O2 @ 5LPM, TOLERATING WELL. NO SOB OR S/S OF RESPIRATORY DISTRESS. BREATHING EVEN AND UNLABORED. ON EXTERNAL CRATER AND PACKER READING SB 57 BPM. IV ACCESS R HAND 22G SL, INTACT AND PATENT. SAFETY PRECAUTIONS IN PLACE. BED IN LOWEST LOCKED POSITION, HOB ELEVATED, SIDE RAILS UP X2, AND CALL LIGHT AND TABLE WITHIN REACH. ALL NEEDS MET AT THIS TIME.
[2022-02-27 20:00] VITALS: BP 148/59
[2022-02-27] MEDS: ATORVASTATIN 40 MG TABLET PO SCH (21:27)
--- NOTE | 2022-02-27 23:31 | NUR ---
RN NOTE PT NOTED WITH BP 162/71 AND HR 60. ADMINISTERED HYDRALAZINE 25 MG FOR SBP > 160 ORDERED. ALL NEEDS MET AT THIS TIME.
[2022-02-28] VITALS: BP 162/71
[2022-02-28 04:00] VITALS: BP 153/60
[2022-02-28] MEDS: BLOOD SUGAR DIAGNOSTIC 1 EACH STRIP VI SCH ×3 (06:30→17:30)
--- NOTE | 2022-02-28 06:33 | NUR ---
MOTORCYCLE DELIVERER CLOSING NOTE PT AWAKE IN BED. A/O X4 AND ABLE TO MAKE NEEDS KNOWN. PT ON O2 @ 5LPM, TOLERATING WELL. NO SOB OR S/S OF RESPIRATORY DISTRESS. BREATHING EVEN AND UNLABORED. ON EXTERNAL MATTRESS MAKER READING SB 57 BPM WITH A FIRST DEGREE AV BLOCK. IV ACCESS R HAND 22G SL, INTACT AND PATENT. ALL DUE MEDS GIVEN ORDERED. SKIN ASSESSMENT COMPLETED WITH NEW ORDER FOR WOUND CONSULT. SAFETY PRECAUTIONS IN PLACE AT ALL TIMES. BED IN LOWEST LOCKED POSITION, HOB ELEVATED, SIDE RAILS UP X2, AND CALL LIGHT AND TABLE WITHIN REACH. ALL NEEDS MET AT THIS TIME AND WILL ENDORSE TO ONCOMING NURSE FOR AMY.
[2022-02-28 07:05] LABS: BASOPHILS # (AUTO) 0.1 K/uL (0.0-0.2); EOSINOPHILS % (AUTO) 4.7 % (0.0-6.0); HEMATOCRIT 30 % (39-51); HEMOGLOBIN 9.8 g/dL (13.5-17.5); LYMPHOCYTES # (AUTO) 1.3 K/uL (0.8-4.8); MEAN CORPUSCULAR HGB CONC 33 g/dl (31.0-36.0); MEAN CORPUSCULAR VOLUME 82 fL (80-96); NEUTROPHILS # (AUTO) 5.1 K/uL (1.8-8.9); NEUTROPHILS % (AUTO) 64.3 % (43.0-81.0); PLATELET COUNT (AUTO) 175 K/uL (150-450); RED BLOOD CELL COUNT(AUTO) 3.63 MIL/uL (4.5-6.0); WHITE BLOOD COUNT (AUTO) 7.9 K/uL (4.3-11.0)
[2022-02-28] MEDS ORDERED: EPOETIN ALFA-EPBX 10,000 UNIT/ML VIAL IV ONE ×2 (08:00→13:00)
[2022-02-28 08:03] LABS: CALCIUM, SERUM 8.9 mg/dL (8.5-10.1); CREATININE 7.2 mg/dL (0.6-1.3); POTASSIUM 4.7 mmol/L (3.5-5.1)
[2022-02-28 08:14] LABS: IRON, SERUM 30 ug/dl (50-175); TOTAL IRON BINDING CAPACITY 144 ug/dl (250-450)
[2022-02-28 08:27] VITALS: BP 130/60
[2022-02-28] MEDS: METOPROLOL TARTRATE 25 MG TABLET PO SCH ×2 (08:43→17:00)
[2022-02-28] MEDS: ISOSORBIDE DINITRATE (20MG) 20 MG TABLET PO SCH ×2 (08:43→17:00)
[2022-02-28] MEDS: hydrALAZINE HCL 50 MG TABLET PO SCH ×3 (08:44→17:00)
[2022-02-28] MEDS: PANTOPRAZOLE 40 MG TABLET.DR PO SCH (08:44)
[2022-02-28] MEDS: AMLODIPINE BESYLATE 5 MG TABLET PO SCH ×2 (08:44→17:00)
[2022-02-28] MEDS: CLOPIDOGREL BISULFATE 75 MG TABLET PO SCH (08:44)
[2022-02-28] MEDS ORDERED: GABAPENTIN 100 MG CAPSULE PO SCH (09:00)
--- NOTE | 2022-02-28 10:43 | NUR ---
WOUND CARE CONSULT: PT PRESENTS WITH WOUND TO RT UPPER BACK, PRESENT ON ADMISSION. PT HAVING DIALYSIS AT THIS TIME. PT STATES THAT HE HAD THIS WOUND PREVIOUSLY AND IT COMES AND GOES. RECOMMENDATIONS MADE FOR SKIN PROTECTION AND WOUND CARE. DISCUSSED WITH NURSING STAFF. DR PAUL FOWLER CALLED FOR SURGICAL CONSULT. MD IN AGREEMENT WITH PLAN OF CARE.
[2022-02-28] MEDS ORDERED: NEOMY SULF/BACITRAC ZN/POLY 15 GM TUBE TP SCH (11:00)
[2022-02-28 11:57] VITALS: BP 129/58
[2022-02-28] MEDS ORDERED: GABA100C PO (13:25)
[2022-02-28] MEDS ORDERED: HYDR-4077 PO (13:25)
[2022-02-28] MEDS ORDERED: AMLO-212 PO (13:25)
[2022-02-28] MEDS ORDERED: ISOS20TA8 PO (13:25)
--- NOTE | 2022-02-28 17:48 | NUR ---
PLATE GRINDER NOTE PATIENT DISCHARGED FROM UNIT @ 1745 VIA WHEELCHAIR. ACCOMPANIED BY DAUGHTER. ALL PERSONAL BELONGS TAKEN WITH PATIENT AND ACCOUNTED FOR. IV REMOVED.
[2022-02-28] MEDS ORDERED: AMIODARONE HCL 200 MG TABLET PO SCH (19:00)
== END 2022-02-28 17:50 | disposition home or self-care (01) | DRG 291 ==
LOC: ER 07:08 → TELE 12:47
PROVIDERS: ADMIT Student in an Organized Health Care Education/Training Program; ATTEND Student in an Organized Health Care Education/Training Program
PROC: 5A1D70Z Performance of Urinary Filtration, Intermittent, Less than 6 Hours Per Day (ICD-10-PCS; principal; 2022-02-26)
DX: I13.2 Hypertensive heart and chronic kidney disease with heart failure and with stage 5 chronic kidney disease, or end stage renal disease (principal); I50.33 Acute on chronic diastolic (congestive) heart failure; J96.01 Acute respiratory failure with hypoxia; N18.6 End stage renal disease; E44.0 Moderate protein-calorie malnutrition; J98.11 Atelectasis; D64.9 Anemia, unspecified; E11.22 Type 2 diabetes mellitus with diabetic chronic kidney disease; E78.5 Hyperlipidemia, unspecified; E86.0 Dehydration; E87.5 Hyperkalemia; I25.10 Atherosclerotic heart disease of native coronary artery without angina pectoris; I27.20 Pulmonary hypertension, unspecified; I16.0 Hypertensive urgency; K21.9 Gastro-esophageal reflux disease without esophagitis; Z20.822 Contact with and (suspected) exposure to COVID-19; Z79.02 Long term (current) use of antithrombotics/antiplatelets; Z79.82 Long term (current) use of aspirin; Z82.49 Family history of ischemic heart disease and other diseases of the circulatory system; Z83.3 Family history of diabetes mellitus; Z99.2 Dependence on renal dialysis; Z79.84 Long term (current) use of oral hypoglycemic drugs; Z79.899 Other long term (current) drug therapy
CPT/HCPCS: 36415; 71045-TC; 80048-TC; 80076-TC; 82962-TC; 83540-TC; 83735-TC; 83880; 84100-TC; 84484-TC; 85025-TC; 86706; 87081-TC; 87340; 90935-TC; 93307-TC; 93970-TC; 94799-TC; C9803; G0378; J0885; J1815; J1940; J2270; J7030

== ENCOUNTER 2022-03-14 08:16 | Inpatient (IN) | payer MEDICARE, OTHER ==
[2022-03-14] VITALS (16 sets, daily range): BP systolic 116–159; BP diastolic 63–86
[~2022-03-14] VITALS: Ht 170.2 cm; Wt 71.2 kg
[~2022-03-14 08:16] MED LIST changes: +AMIO200T5 PO; +AMLO-212 PO; -ASPI-605 PO; +GABA100C PO; +HYDR-4077 PO; +INSU100V11 SQ; +ISOS10TA2 PO; +ISOS20TA8 PO; -LOSA50TA3 PO; +METO25TA20 PO; -SITA100T PO
--- NOTE | 2022-03-14 08:20 | NUR ---
RECEIVED PT 71 YR MALE CAME FROM HOME C/O SOB AND RESPRATORY DISTRESS ON HD AND LAST HD ON 03/13/22 AWAKE AND ALERT O2 ON ROOM AIR 80%
--- NOTE | 2022-03-14 08:30 | NUR ---
INSERTED ANGO CATHER G 20 ON RT HAND BLOOD DROW AND SENT TO LAB
--- NOTE | 2022-03-14 08:30 | NUR ---
SEEN BY DR. FOX RT AT BED SIDE PLACE PT ON BIBAP FIO2 100% RR 16 IPAP 15 EPAP 5 O2 SAT 98%-100%
--- NOTE | 2022-03-14 08:45 | NUR ---
COVID SWAB COLLECTED AND SENT TO LAB.
[2022-03-14 08:50] LABS: BASOPHILS % (AUTO) 0.5 % (0.0-2.0); EOSINOPHILS % (AUTO) 0.2 % (0.0-6.0); HEMATOCRIT 32 % (39-51); LYMPHOCYTES # (AUTO) 0.4 K/uL (0.8-4.8); LYMPHOCYTES % (AUTO) 4.8 % (20.0-44.0); MEAN CORPUSCULAR HGB CONC 32 g/dl (31.0-36.0); MEAN CORPUSCULAR VOLUME 84 fL (80-96); MONOCYTES # (AUTO) 0.6 K/uL (0.1-1.30); MONOCYTES % (AUTO) 7.5 % (2.0-12.0); NEUTROPHILS # (AUTO) 6.9 K/uL (1.8-8.9); PLATELET COUNT (AUTO) 156 K/uL (150-450); RED BLOOD CELL COUNT(AUTO) 3.78 MIL/uL (4.5-6.0)
[2022-03-14 09:17] LABS: ALANINE AMINOTRANSFERASE 13 U/L (12-78); ALBUMIN 3.2 g/dL (3.4-5.0); ALKALINE PHOSPHATASE 76 U/L (46-116); ASPARTATE AMINOTRANSFERASE 23 U/L (15-37); BILIRUBIN,DIRECT 0.2 mg/dL (0.0-0.2); BILIRUBIN,TOTAL 0.5 mg/dL (0.2-1.0); CALCIUM, SERUM 8.5 mg/dL (8.5-10.1); CARBON DIOXIDE 27 mmol/L (21-32); CHLORIDE 98 mmol/L (98-107); GLUCOSE 220 mg/dL (74-106); POTASSIUM 4.9 mmol/L (3.5-5.1); SODIUM SERUM 137 mmol/L (136-145); TOTAL PROTEIN, SERUM 7.5 g/dL (6.4-8.2); UREA NITROGEN, BLOOD 42 mg/dL (7-18)
--- NOTE | 2022-03-14 09:21 | NUR ---
CRITICAL LAB = TROPONIN: 3247 AND LACTIC ACID : 2.9 MD AND NURSE MADE AWARE
[2022-03-14 09:58] LABS: ABG BASE EXCESS 2.7 mmol/L; ABG PCO2 44.3 mmHg (35.0-45.0); ABG PH 7.413 (7.350-7.450); COHb 0.2 % (0.5-1.5); MetHb 0.3 % (0.0-1.5); O2Hb 97.3 % (94.0-97.0); SITE, ABG Right Radial; VENT MODE, BG 15/5 RR16 100%
[2022-03-14] MEDS ORDERED: FUROSEMIDE 40 MG/4 ML VIAL IV ONE (10:00)
[2022-03-14] MEDS ORDERED: ENALAPRILAT DIHYD. (2.5MG/2ML) 1.25 MG/ML VIAL IV ONE (10:00)
[2022-03-14] MEDS ORDERED: ENOXAPARIN SODIUM 40 MG/0.4 ML DISP.SYRIN SQ ONE (10:00)
--- NOTE | 2022-03-14 10:15 | NUR ---
ABG DONE WNL AND D/C BIPAP DONE AND PLACE FIO2 4L/NC O2 SAT 80%
[2022-03-14] MEDS ORDERED: AMIODARONE HCL 200 MG TABLET PO SCH (10:30)
--- NOTE | 2022-03-14 10:30 | NUR ---
RT AT BED SIDE PALCE PT ON SIMLE MASK FIO2 10 O2 SAT 92%
--- NOTE | 2022-03-14 11:38 | NUR ---
HOSPTALIST AT BED SIDE FOR EVALUATION
[2022-03-14] MEDS ORDERED: MAG HYDROX/AL HYDROX/SIMETH 30 ML UDC PO PRN (12:30)
[2022-03-14] MEDS ORDERED: DEXTROSE 50%-WATER 50 ML DISP.SYRIN IV PRN (12:30)
[2022-03-14] MEDS ORDERED: INSULIN REGULAR, HUMAN 100 UNIT/ML 3 ML VIAL SQ PRN (12:30)
[2022-03-14] MEDS ORDERED: ONDANSETRON HCL/PF 4 MG/2 ML VIAL IVP PRN (12:30)
[2022-03-14] MEDS ORDERED: Z GUARD REMEDY 4 OZ OINT TP PRN (12:30)
[2022-03-14] MEDS ORDERED: MAGNESIUM HYDROXIDE 30 ML UDC PO PRN (12:30)
--- NOTE | 2022-03-14 14:15 | NUR ---
BED 258
--- NOTE | 2022-03-14 15:30 | NUR ---
pt o2 sat 80% on 100 % nrm respratory called and noteffed
--- NOTE | 2022-03-14 15:45 | NUR ---
place pt back on BIPAP SITING FIO2 100% IP15 EP 5 RATE 16/MIN O2 SAT 95%
--- NOTE | 2022-03-14 16:00 | NUR ---
TRANSFER PT TO ICU ROOM 258 HAND OFF ALDR.G RN AT BED SIDE PT ON ACUE DISTRESS MILD TO MODRET
--- NOTE | 2022-03-14 16:05 | NUR ---
PATIENT ADMITTED FROM ER WITH DIAGNOSIS OF ACUTE HYPOXIC RESPIRATORY FAILURE SECONDARY TO CHF / FLUID OVERLOAD / RIGHT PLEURAL EFFUSIONS. PATIENT AWAKE, ANSWERS QUESTIONS APPROPRIATELY, FOLLOWS SIMPLE COMMANDS BUT APPEARS SOB ON ADMISSION. PATIENT CONNECTED TO BIPAP UPON ARRIVAL BY RT. KEPT ON HIGH OTOOLE'S POSITION. POSITIONED COMFORTABLY IN BED. BP STABLE. AFIB 80'S ON MPNITOR. AFEBRILE. INITIAL SKIN CHECK INTACT. NO SKIN BREAKDOWN NOTED. HD RN AT BEDSIDE TO INITIATE HD PER MD ORDERS.
--- NOTE | 2022-03-14 16:25 | NUR ---
PATIENT NOTED ON CONTROLLED AFIB ON ADMISSION. PATIENT EKG NOTED FROM ER ON SR. DR. BELL MADE AWARE WITH NO NEW ORDERS FROM .
[2022-03-14] MEDS: CLOPIDOGREL BISULFATE 75 MG TABLET PO SCH (16:57)
--- NOTE | 2022-03-14 19:15 | NUR ---
SHREDDING SPECIALIST CLOSING NOTE: PT. REMAINS AOX4. NO COMPLAINTS OF PAIN AT THIS TIME. REMAINS ON BIPAP WITH SETTING OF 15/5; RATE - 16; FIO2 - 100%. REMAINS AFIB CONTROLLED ON BINDERY PRODUCTION MANAGER. DR. BELL MADE AWARE WITH NO NEW ORDERS. PLAVIX AND AMIODARONE GIVEN. ALL OTHER BP MEDS HELD UNTIL AFTER HEMODIALYSIS. HD STILL ON GOING AT THIS TIME. ENDORSED TO SCIENTIFIC RECRUITER RN CELINE. IV ACCESS ON R HAND #20G, PATENT AND SALINE LOCKED, NO S/S OF INFILTRATION. BLOOD GLUCOSE AT 1852 IS 136 MG/DL. NO COVERAGE FOR NOW PT. STILL ON BIPAP AND NOT ABLE TO EAT OR DRINK. SAFETY MEASURES MAINTAINED: BED IN LOWEST AND LOCKED POSITION, HOB ELEVATED AT 45 DEGREES, BED ALARM ON, CALL LIGHT AND URINAL WITHIN REACH, SIDE RAILS UP X2. ENCOURAGED FREQUENT REPOSITIONING IN BED AT LEAST Q2H AFTER HD. ENDORSED CONTINUITY OF CARE TO SCIENTIFIC RECRUITER RN.
--- NOTE | 2022-03-14 19:20 | NUR ---
RN NOTES RECEIVED REPORT FROM MORNING SHIFT. PATIENT IN BED A/O X3 ABLE TO MAKE NEEDS KNOWN FAMILY AT BEDSIDE. ON BIPAP WITH PRESCRIBED SETTINGS SATING 99% NO SOB NO DISTRESS NOTED AT THIS TIME. WITH ON GOING DIALYSIS. WITH IV ACCESS AT R HAND # 20 PATENT FLUSHES WELL. ALL SAFETY MEASURES IN PLACE AT ALL TIMES. HOB ELEVATED. CALL LIGHT WITHIN REACH BED ON LOWEST POSITION AND LOCKED. WILL CLOSELY MONITOR THE PATIENT
[2022-03-14] MEDS: BLOOD SUGAR DIAGNOSTIC 1 EACH STRIP VI SCH ×2 (19:25→22:42)
--- NOTE | 2022-03-14 19:30 | NUR ---
RN NOTES HEMODIALYSIS COMPLETED WITH UF 2.5 LITTERS. NO COMPLICATION NOTED. L UA AV FISTULA NO BLEEDING NOTED.
[2022-03-14] MEDS: AMLODIPINE BESYLATE 5 MG TABLET PO SCH (19:57)
[2022-03-14] MEDS: METOPROLOL TARTRATE 25 MG TABLET PO SCH (19:58)
[2022-03-14] MEDS: hydrALAZINE HCL 50 MG TABLET PO SCH (19:59)
[2022-03-14] MEDS: ISOSORBIDE DINITRATE (20MG) 20 MG TABLET PO SCH (19:59)
--- NOTE | 2022-03-14 20:04 | NUR ---
PT TAKEN OFF BIPAP AND PLACED ON 6L NC TO EAT RN AWARE. BIPAP S/B.
--- NOTE | 2022-03-14 20:23 | NUR ---
PT AT 6L N.C O2 SAT IS 83%, SWITCHED TO S.M 10L O2 SAT IS NOW 94%. RN NOTIFIED.
--- NOTE | 2022-03-14 21:23 | NUR ---
PT PLACED BACK ON BIPAP DUE TO SOB. RN NOTIFIED.
[2022-03-14] MEDS: ATORVASTATIN 40 MG TABLET PO SCH (22:42)
[2022-03-14] MEDS: *INSULIN REGULAR(HUMULIN R)HUM 100 UNIT/ML VIAL SQ PRN (22:45)
[2022-03-15] VITALS (45 sets, daily range): BP systolic 98–152; BP diastolic 44–90
[2022-03-15 04:57] LABS: BASOPHILS % (AUTO) 0.2 % (0.0-2.0); HEMATOCRIT 28 % (39-51); HEMOGLOBIN 9.2 g/dL (13.5-17.5); LYMPHOCYTES # (AUTO) 0.3 K/uL (0.8-4.8); MEAN CORPUSCULAR HGB CONC 33 g/dl (31.0-36.0); MEAN CORPUSCULAR VOLUME 82 fL (80-96); MONOCYTES # (AUTO) 0.7 K/uL (0.1-1.30); MONOCYTES % (AUTO) 5.8 % (2.0-12.0); NEUTROPHILS # (AUTO) 11.5 K/uL (1.8-8.9); PLATELET COUNT (AUTO) 142 K/uL (150-450); RED BLOOD CELL COUNT(AUTO) 3.43 MIL/uL (4.5-6.0); WHITE BLOOD COUNT (AUTO) 12.5 K/uL (4.3-11.0)
[2022-03-15 05:24] LABS: CALCIUM, SERUM 8.1 mg/dL (8.5-10.1); CREATININE 6.3 mg/dL (0.6-1.3); MAGNESIUM 1.8 mg/dL (1.8-2.4); PHOSPHORUS 5.7 mg/dL (2.5-4.9)
--- NOTE | 2022-03-15 06:52 | NUR ---
RN NOTES PATIENT REMAINS ON BIPAP @ 50% RATE 16 TOLERATING WELL SATING 99%. IV ACCESS AT R HAND #20 PATENT FLUSHES WELL. KARISSA AV FISTULA NO BLEEDING NOTED. ALL NEEDS ATTENDED PROMPTLY. CALL LIGHT WITHIN REACH. HOB ELEVATED. CALL LIGHT WITHIN REACH. FOR POSSIBLE DIALYSIS TODAY. WILL ENDORSED TO MORNING SHIFT FOR AMY
--- NOTE | 2022-03-15 07:15 | NUR ---
FILLER SHAKER Bedside report taken from [facility] nurse Cece VASQUEZ. pt asleep, easily arousable. AAO x4, follows commands, moves bue 3/5 ble 2/5, perrla. pt on bipap fio2 50%, tolerating well. spo2 95%. aaron lung sounds diminished. pt NSR on monitor hr 70s. pt on cardiac diet, bowel sounds present. pt abd soft and non distended. pt oliguric, voids in urinal , HD pt. skin intact. all lines traced. all drips verified. safety measures in place. will continue to monitor.
[2022-03-15] MEDS: PANTOPRAZOLE 40 MG TABLET.DR PO SCH (07:59)
[2022-03-15] MEDS: BLOOD SUGAR DIAGNOSTIC 1 EACH STRIP VI SCH ×4 (08:00→22:02)
[2022-03-15] MEDS: ISOSORBIDE DINITRATE (20MG) 20 MG TABLET PO SCH ×2 (08:00→20:44)
[2022-03-15] MEDS: hydrALAZINE HCL 50 MG TABLET PO SCH ×3 (08:00→22:00)
--- NOTE | 2022-03-15 08:00 | NUR ---
DIESEL MECHANIC HELPER Pt off bipap by Paz RT per pt request and placed on 3 L n/c, pt tolerating well. vitals stable. will continue to monitor.
[2022-03-15] MEDS: METOPROLOL TARTRATE 25 MG TABLET PO SCH ×2 (08:01→20:43)
[2022-03-15] MEDS: CLOPIDOGREL BISULFATE 75 MG TABLET PO SCH (08:01)
[2022-03-15] MEDS: AMLODIPINE BESYLATE 5 MG TABLET PO SCH ×2 (08:01→22:00)
--- NOTE | 2022-03-15 08:06 | NUR ---
off bipap. zero distress noted.
--- NOTE | 2022-03-15 08:10 | NUR ---
BENDING PRESS OPERATOR Pt anxious and desaturating to spo2 85%, o2 increased to 6 L n/c by Paz RT, pt instructed to relax and focus on breathing, breathing in through nose and out of mouth slowly. pt feeling nausea zofran given per request. vitals stable. will continue to monitor.
[2022-03-15] MEDS: GABAPENTIN 100 MG CAPSULE PO SCH (08:12)
--- NOTE | 2022-03-15 08:20 | NUR ---
ADMINISTRATIVE ASST Dr Seymour at bedside assessing pt and updated on pt status. md aware that pt off bipap at 8am and placed on 6 L n/c d/t desaturation and anxiety, per md pt looks great and is tolerating n/c well with spo2 88-90%, no other orders per md. charge nurse Shauna RN at bedside aware of md assessment.
--- NOTE | 2022-03-15 08:48 | NUR ---
ACID RETORT OPERATOR Pt asleep, resting comfortable on 6 L n/c spo2 93 %, other vitals stable. will continue to monitor.
[2022-03-15] MEDS: ACETAMINOPHEN 325 MG TABLET PO PRN ×2 (11:17→16:45)
--- NOTE | 2022-03-15 11:21 | NUR ---
JUNIOR GRAPHIC DESIGNER Pt has fever 102.7, prn tylenol given . pt refuses to remove blankets at this time.
--- NOTE | 2022-03-15 15:09 | NUR ---
INTERNET MEDIA PLANNER pt bathed and cleaned. linen change done. skin check done, no new wounds noted. pt tolerated well. vitals stable. safety measures in place. awaiting for HD nurse to start dialysis.
--- NOTE | 2022-03-15 18:17 | NUR ---
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 all 1700 bp meds held per HD nurse, will leave red for bioinformaticist to give after HD if pt hypertensive. charge nurse Shauna VASQUEZ aware.
--- NOTE | 2022-03-15 19:08 | NUR ---
PRINTED CIRCUIT LAYOUT TAPER Bedside report given to [facility] nurse Reginaldo. pt asleep, easily arousable. HD nurse at bedside finishing up dialysis. pt clean and dry. vitals stable. safety measures in place. no signs of acute distress at this time. pm blood pressure meds x4 endorsed to [facility] nurse per HD nurse request. charge nurse Shauna VASQUEZ aware.
--- NOTE | 2022-03-15 19:29 | NUR ---
MED NOTE: PAST DUE MEDICATION REMOVED FROM PT EMAR FOR PT SAFETY.
--- NOTE | 2022-03-15 20:34 | NUR ---
ICU/RN: PT ASKED FOR MEAL TRAY TO BE HEATED UP. REPOSITIONED IN BED FOR COMFORT AND SAFETY. PT ENCOURAGED TO FEED HIMSELF INDEPENDENTLY. PT EATING MEAL TRAY BY HIMSELF WITHOUT INCIDENT. WILL CONTINUE WITH PLAN OF CARE.
[2022-03-15] MEDS: ATORVASTATIN 40 MG TABLET PO SCH (22:02)
[2022-03-15] MEDS: *INSULIN REGULAR(HUMULIN R)HUM 100 UNIT/ML VIAL SQ PRN (22:13)
[2022-03-16] VITALS (60 sets, daily range): BP systolic 77–159; BP diastolic 47–95
--- NOTE | 2022-03-16 03:27 | NUR ---
ICU/RN: PT COMPLAINT OF FEELING SHORT OF BREATH. PLACED BACK ONTO BIPAP BY RT. WILL CONTINUE PLAN OF CARE.
--- NOTE | 2022-03-16 03:29 | NUR ---
PT PLACED BACK ON BIPAP. PT SAID HE IS HAVING DIFFICULTY BREATHING. RN AWARE. CONTINUE TO MONITOR.
[2022-03-16 05:23] LABS: EOSINOPHILS % (AUTO) 1.1 % (0.0-6.0); HEMATOCRIT 29 % (39-51); HEMOGLOBIN 9.1 g/dL (13.5-17.5); LYMPHOCYTES # (AUTO) 0.3 K/uL (0.8-4.8); LYMPHOCYTES % (AUTO) 3.1 % (20.0-44.0); MEAN CORPUSCULAR HGB CONC 31 g/dl (31.0-36.0); MEAN CORPUSCULAR VOLUME 84 fL (80-96); MONOCYTES # (AUTO) 0.7 K/uL (0.1-1.30); MONOCYTES % (AUTO) 8.3 % (2.0-12.0); NEUTROPHILS # (AUTO) 7.7 K/uL (1.8-8.9); NEUTROPHILS % (AUTO) 87.5 % (43.0-81.0); PLATELET COUNT (AUTO) 146 K/uL (150-450); RED BLOOD CELL COUNT(AUTO) 3.45 MIL/uL (4.5-6.0); WHITE BLOOD COUNT (AUTO) 8.8 K/uL (4.3-11.0)
[2022-03-16 05:49] LABS: CALCIUM, SERUM 8.5 mg/dL (8.5-10.1); CREATININE 5.7 mg/dL (0.6-1.3); POTASSIUM 5.2 mmol/L (3.5-5.1)
[2022-03-16] MEDS: PANTOPRAZOLE 40 MG TABLET.DR PO SCH (07:30)
--- NOTE | 2022-03-16 07:30 | NUR ---
OPENING NOTE: REPORT RECEIVED FROM ELVIA VASQUEZ. LABS AND ORDERS REVIEWED DURING REPORT. PT CURRENTLY ON BIPAP AT 40%. PT'S SATS DROPPED PER REPORT. PT'S BREAKFAST WILL BE HELD IN CASE PATIENT IS ABLE TO GET OFF BIPAP THIS AM. WILL CONTINUE TO MONITOR.
[2022-03-16] MEDS: ISOSORBIDE DINITRATE (20MG) 20 MG TABLET PO SCH ×2 (09:00→16:38)
[2022-03-16] MEDS: METOPROLOL TARTRATE 25 MG TABLET PO SCH ×2 (09:00→16:38)
[2022-03-16] MEDS: hydrALAZINE HCL 50 MG TABLET PO SCH ×3 (09:00→16:37)
[2022-03-16] MEDS: GABAPENTIN 100 MG CAPSULE PO SCH (09:00)
[2022-03-16] MEDS: AMLODIPINE BESYLATE 5 MG TABLET PO SCH ×2 (09:00→16:38)
--- NOTE | 2022-03-16 09:24 | NUR ---
AM MEDS HELD UNTIL AFTER DIALYSIS THAT IS ABOUT TO START. PT IS ON BIPAP AND UNABLE TO EAT BREAKFAST D/T BIPAP.
[2022-03-16] MEDS: BLOOD SUGAR DIAGNOSTIC 1 EACH STRIP VI SCH ×2 (09:38→13:06)
[2022-03-16] MEDS ORDERED: EPOETIN ALFA (10,000 UNIT) 10,000 UNIT/ML VIAL IV ONE (10:00)
--- NOTE | 2022-03-16 11:45 | NUR ---
code blue called. pt removed from bipap CPR initiated with BVM ventilation. pt orally intubated at 1157 by er with 7.5 secured at 24cm. alarms set and audible. b/s equal vent plugged into red outlet.
--- NOTE | 2022-03-16 12:03 | NUR ---
AT 1130 HD STOPPED D/T PATIENT BECOMING DIAPHORETIC AND LESS RESPONSIVE. BLOOD SUGAR CHECK WAS 150. 1146 PT BECAME UNRESPONSIVE, HR ZAYRA DOWN TO 30'S, NO PULSES PALPATED, CODE BLUE CALLED. 1151 ROSC RETURNED 1157 PT INTUBATED, 7.5 ETT 24 AT THE LIP 1159 PT WENT INTO V-FIB WITHOUT PULSE, CODE CONTINUED 1203 ROSC RETURNED SEE CODE BLUE SHEET FOR DETAILS. FAMILY WAS AT BEDSIDE WHEN CODE STARTED, THEY LEFT THE ROOM DURING THE CODE BUT STAYED CLOSE BY.
[2022-03-16] MEDS ORDERED: NORMAL SALINE 10 ML DISP.SYRIN IV ONE (12:53)
[2022-03-16] MEDS ORDERED: ETOMIDATE 2 MG/ML VIAL IV ONE (12:53)
[2022-03-16] MEDS ORDERED: PROPOFOL 100 ML IV PRN (13:00)
[2022-03-16] MEDS ORDERED: DEXTROSE 50%-WATER 50 ML DISP.SYRIN IV PRN (13:30)
[2022-03-16] MEDS ORDERED: NOREPINEPHRINE 8 MG in IV NS 0.9% 242 ML IV PRN (14:30)
[2022-03-16 14:31] LABS: ABG OXYGEN SATURATION 94.7 % (92.0-98.5); ABG PH 7.337 (7.350-7.450); ABG PO2 86.4 mmHg (75.0-100.0); AaDO2 587.6 mmHg; COHb 0.8 % (0.5-1.5); MetHb 0.3 % (0.0-1.5); O2Hb 93.7 % (94.0-97.0); SITE, ABG Right Radial; VT, ABG 450 mL
[2022-03-16] MEDS ORDERED: EPINEPHRINE (1:10,000) SYRINGE 1 MG/10 ML DISP.SYRIN IVP ONE (14:33)
[2022-03-16] MEDS ORDERED: SODIUM BICARBONATE SYR 50 MEQ/50 ML DISP.SYRIN IV ONE (14:33)
[2022-03-16] MEDS: CLOPIDOGREL BISULFATE 75 MG TABLET PO SCH (16:35)
[2022-03-16] MEDS: CEFEPIME 2 GM in IV D5W 100 ML IV SCH (16:36)
[2022-03-16] MEDS: IV NS 0.9% 250 ML IV PRN (16:37)
[2022-03-16] MEDS ORDERED: MAG HYDROX/AL HYDROX/SIMETH 30 ML UDC GT PRN (16:55)
[2022-03-16] MEDS ORDERED: MAGNESIUM HYDROXIDE 30 ML UDC GT PRN (16:55)
[2022-03-16] MEDS: AMLODIPINE BESYLATE 5 MG TABLET GT SCH (17:00)
[2022-03-16] MEDS: hydrALAZINE HCL 50 MG TABLET GT SCH (17:00)
[2022-03-16] MEDS: METOPROLOL TARTRATE 25 MG TABLET GT SCH (17:00)
[2022-03-16] MEDS: ISOSORBIDE DINITRATE (20MG) 20 MG TABLET GT SCH (17:00)
[2022-03-16] MEDS ORDERED: PHARMACY TO CHANGE PO MEDS TO GT/NG XX PRN (17:00)
[2022-03-16] MEDS: PROPOFOL 100 ML IV PRN ×2 (17:06→21:54)
[2022-03-16] MEDS: BLOOD SUGAR DIAGNOSTIC 1 EACH STRIP IN SCH ×2 (18:48→23:34)
[2022-03-16] MEDS: INSULIN REGULAR, HUMAN 100 UNIT/ML 3 ML VIAL SQ PRN (18:52)
--- NOTE | 2022-03-16 20:00 | NUR ---
Received patient sedated on Diprivan gtt at 40 mcg on full vent support as prescribed.No acute distress noted.VSS.SR.OGT clamped and placement verified.Patient anuric on HD left arm AVF + bruit and thrill.Turned and repositioned.Continue monitoring.
[2022-03-16] MEDS: ATORVASTATIN 40 MG TABLET GT SCH (21:27)
[2022-03-17] VITALS (73 sets, daily range): BP systolic 95–168; BP diastolic 48–75
[2022-03-17] MEDS: PROPOFOL 100 ML IV PRN ×4 (03:08→19:36)
--- NOTE | 2022-03-17 03:52 | NUR ---
RT NOTE PEEP +5 ADDED. PEDRO BLANCO.
[2022-03-17] MEDS: BLOOD SUGAR DIAGNOSTIC 1 EACH STRIP IN SCH ×3 (06:16→18:19)
--- NOTE | 2022-03-17 06:40 | NUR ---
Patient resting in no acute distress.VSS remains stable.SR/SB 50'S.Tolerating vent settings. AM care done.Oral care done.Turned and repositioned q 2 hrs.No significant changes noted during the night.Diprivan gtt infusing at 35 mcg.No BM noted.Blood sugar monitored Q 6 hrs results wnl.
[2022-03-17 09:00] LABS: BASOPHILS % (AUTO) 0.3 % (0.0-2.0); EOSINOPHILS % (AUTO) 0.1 % (0.0-6.0); HEMATOCRIT 26 % (39-51); HEMOGLOBIN 8.5 g/dL (13.5-17.5); LYMPHOCYTES # (AUTO) 0.5 K/uL (0.8-4.8); LYMPHOCYTES % (AUTO) 6.5 % (20.0-44.0); MEAN CORPUSCULAR HGB CONC 33 g/dl (31.0-36.0); MEAN CORPUSCULAR VOLUME 82 fL (80-96); MONOCYTES # (AUTO) 0.4 K/uL (0.1-1.30); MONOCYTES % (AUTO) 5.8 % (2.0-12.0); NEUTROPHILS # (AUTO) 6.2 K/uL (1.8-8.9); NEUTROPHILS % (AUTO) 87.3 % (43.0-81.0); PLATELET COUNT (AUTO) 125 K/uL (150-450); WHITE BLOOD COUNT (AUTO) 7.1 K/uL (4.3-11.0)
[2022-03-17] MEDS: ISOSORBIDE DINITRATE (20MG) 20 MG TABLET GT SCH ×2 (09:00→17:00)
[2022-03-17] MEDS: METOPROLOL TARTRATE 25 MG TABLET GT SCH ×2 (09:00→17:00)
[2022-03-17] MEDS: AMLODIPINE BESYLATE 5 MG TABLET GT SCH ×2 (09:00→17:00)
[2022-03-17] MEDS: hydrALAZINE HCL 50 MG TABLET GT SCH ×3 (09:00→17:00)
[2022-03-17 09:09] LABS: CALCIUM, SERUM 8.6 mg/dL (8.5-10.1); CREATININE 6.7 mg/dL (0.6-1.3); POTASSIUM 4.6 mmol/L (3.5-5.1)
[2022-03-17] MEDS: PANTOPRAZOLE 40 MG/PACK PACK GT SCH (10:04)
[2022-03-17] MEDS: ACETAMINOPHEN 650 MG/20.3 ML UDC GT PRN (10:04)
[2022-03-17] MEDS: GABAPENTIN 100 MG CAPSULE GT SCH (10:04)
[2022-03-17] MEDS: CLOPIDOGREL BISULFATE 75 MG TABLET GT SCH (10:04)
[2022-03-17] MEDS: CEFEPIME 2 GM in IV D5W 100 ML IV SCH (12:23)
[2022-03-17] MEDS ORDERED: VANCOMYCIN 1 GM in IV D5W 250 ML IV ONE (16:00)
[2022-03-17] MEDS: IV NS 0.9% 250 ML IV PRN (16:57)
--- NOTE | 2022-03-17 17:26 | NUR ---
1700 BP MEDS HELD FOR HEART RATE OF 58
--- NOTE | 2022-03-17 19:10 | NUR ---
RN OPENING NOTES RECEIVED PATIENT ON BED , SEDATED, ORALLY INTUBATED SIZE-7.5, 24 CM BY THE LIP, ON MECHANICAL VENTILATOR WITH SETTINGS AC-24, TV- 450, FIO2- 60% PEEP- 5, SETTINGS TOLERATED WELL. RESPIRATORY EVEN AND UNLABORED, NO SOB NOTED, AFEBRILE, NO S/S OF DISTRESS NOTED. NOTED WITH RIGHT HAND # 20 PERIPHERAL LINE AND KEYANNA MIDLINE FLUSHED WITH NS, NO S/S OF INFILTRATION NOTED. RUNNING WITH PROPOFOL @ 35 MCG/KG/MIN. ALSO NOTED WITH KARISSA AV SHUNT, NO BLEEDING NOTED. WITH OGT, PATENT AND INTACT, VERIFIED PLACEMENT BY AUSCULTATION, NO RESIDUAL NOTED UPON ASPIRATION. FLUSHED WITH WATER, TOLERATED WELL. ALL SAFETY PRECAUTION PROVIDED. BED IN LOWEST POSITION, LOCKED. BED ALARM ARMED. CALL LIGHT WITH REACH. CONTINUE TO MONITOR.
[2022-03-17] MEDS: ATORVASTATIN 40 MG TABLET GT SCH (22:09)
[2022-03-18] VITALS (32 sets, daily range): BP systolic 95–177; BP diastolic 52–89
[2022-03-18] MEDS: BLOOD SUGAR DIAGNOSTIC 1 EACH STRIP IN SCH ×4 (00:07→17:31)
[2022-03-18] MEDS: INSULIN REGULAR, HUMAN 100 UNIT/ML 3 ML VIAL SQ PRN ×3 (00:08→12:45)
--- NOTE | 2022-03-18 00:09 | NUR ---
RN NOTES NOTED WITH BLOOD SUGAR 91 mg/dL, NO INSULIN COVERAGE PER SLIDING SCALE, NO S/S OF HYPOGLYCEMIA NOTED. CONTINUE TO MONITOR.
[2022-03-18] MEDS: ACETAMINOPHEN 650 MG/20.3 ML UDC GT PRN (00:11)
--- NOTE | 2022-03-18 00:12 | NUR ---
RN NOTES PATIENT NOTED WITH TEMP- 100.3 FAHRENHEIT, COOLING MEASURE PROVIDED, ACETAMINOPHEN 650MG GIVEN VIA OGT. CONTINUE TO MONITOR.
[2022-03-18] MEDS: PROPOFOL 100 ML IV PRN ×5 (00:54→23:09)
--- NOTE | 2022-03-18 01:00 | NUR ---
RN NOTES TEMPERATURE RECHECKED AND OBTAINED 98.8 FAHRENHEIT. CONTINUE TO MONITOR.
[2022-03-18 04:37] LABS: BASOPHILS % (AUTO) 0.7 % (0.0-2.0); EOSINOPHILS % (AUTO) 0.6 % (0.0-6.0); HEMATOCRIT 26 % (39-51); HEMOGLOBIN 8.5 g/dL (13.5-17.5); LYMPHOCYTES # (AUTO) 0.5 K/uL (0.8-4.8); LYMPHOCYTES % (AUTO) 8.9 % (20.0-44.0); MEAN CORPUSCULAR HGB CONC 33 g/dl (31.0-36.0); MEAN CORPUSCULAR VOLUME 81 fL (80-96); MONOCYTES # (AUTO) 0.4 K/uL (0.1-1.30); MONOCYTES % (AUTO) 6.9 % (2.0-12.0); NEUTROPHILS % (AUTO) 82.9 % (43.0-81.0); PLATELET COUNT (AUTO) 117 K/uL (150-450)
[2022-03-18 04:57] LABS: CALCIUM, SERUM 8.4 mg/dL (8.5-10.1); POTASSIUM 4.6 mmol/L (3.5-5.1)
[2022-03-18 05:01] LABS: CREATININE 8.1 mg/dL (0.6-1.3)
--- NOTE | 2022-03-18 05:54 | NUR ---
RN NOTES NOTED WITH BLOOD SUGAR 91 mg/dL, NO INSULIN COVERAGE PER SLIDING SCALE, NO S/S OF HYPOGLYCEMIA NOTED. CONTINUE TO MONITOR.
--- NOTE | 2022-03-18 07:30 | NUR ---
RN OPENING NOTE PT OBSERVED IN BED WITH HOB >30 DEGREES. PT IS ON MECHANICAL VENT WITH ALL PRESCRIBED SETTINGS TOLERATING WELL 02 SAT 96%. PT IS SEDATED AT THIS TIME ON DIPRIVAN 35MCG. OG TUBE IS IN PLACE WITH POSITIVE PLACEMENT NO TF AT THIS TIME. PT IS ON HD AND IS ANURIC. IV ACCESS R HAND 20G, R UA ML, AND L UA FISTULA. BED IS LOCKED IN LOWEST POSITION X2 BED RAILS UP AND ALL HOSPITAL SAFETY MEASURES ARE IN PLACE. WILL CONTINUE TO MONITOR THIS SHIFT.
--- NOTE | 2022-03-18 08:00 | NUR ---
RN NOTE: BP MEDS PER DR. LEE, DC LOPRESSOR. PARAMETER FOR HYRDALIZINE, NORVASC, AND ISORDIL IS TO HOLD FOR SBP < 110
[2022-03-18] MEDS: ISOSORBIDE DINITRATE (20MG) 20 MG TABLET GT SCH ×2 (08:04→17:31)
[2022-03-18] MEDS: hydrALAZINE HCL 50 MG TABLET GT SCH ×3 (08:04→17:00)
[2022-03-18] MEDS: AMLODIPINE BESYLATE 5 MG TABLET GT SCH ×2 (08:05→17:30)
[2022-03-18] MEDS: GABAPENTIN 100 MG CAPSULE GT SCH (08:21)
[2022-03-18] MEDS: PANTOPRAZOLE 40 MG/PACK PACK GT SCH (08:21)
[2022-03-18] MEDS: CLOPIDOGREL BISULFATE 75 MG TABLET GT SCH (08:21)
--- NOTE | 2022-03-18 12:30 | NUR ---
RN NOTE: HYDRALAZINE PT HAVING HD AT THIS TIME. WILL HOLD MED.
--- NOTE | 2022-03-18 12:46 | NUR ---
RN NOTE: ALVARADO PT BS 104. PER SLIDING SCALE, NO COVERAGE NEEDED AT THIS TIME.
[2022-03-18] MEDS ORDERED: EPOETIN ALFA-EPBX 10,000 UNIT/ML VIAL IV ONE (15:00)
[2022-03-18] MEDS: AMIODARONE HCL 200 MG TABLET GT SCH (16:43)
[2022-03-18] MEDS ORDERED: VANCOMYCIN 1 GM in IV D5W 250ml IV ONE (18:00)
--- NOTE | 2022-03-18 18:53 | NUR ---
RN CLOSING NOTE PT IS IN BED WITH HOB >30 DEGREES. PT IS ON MECHANICAL VENT WITH ALL PRESCRIBED SETTINGS TOLERATING WELL 02 SAT 97%. PT IS SEDATED AT THIS TIME ON DIPRIVAN 35MCG. OG TUBE IS IN PLACE WITH POSITIVE PLACEMENT. PT IS ON HD REMOVED 1 LITER. IV ACCESS R HAND 20G, R UA ML, L FEMORAL MIDLINE AND L UA FISTULA. BED IS LOCKED IN LOWEST POSITION X2 BED RAILS UP AND ALL HOSPITAL SAFETY MEASURES ARE IN PLACE. WILL ENDORSE TO STUDIO MUSICIAN NURSE FOR AMY.
--- NOTE | 2022-03-18 19:10 | NUR ---
RN OPENING NOTES RECEIVED PATIENT ON BED , SEDATED, ORALLY INTUBATED SIZE-7.5, 24 CM BY THE LIP, ON MECHANICAL VENTILATOR WITH SETTINGS AC-24, TV- 450, FIO2- 60% PEEP- 5, SETTINGS TOLERATED WELL. RESPIRATORY EVEN AND UNLABORED, NO SOB NOTED, AFEBRILE, NO S/S OF DISTRESS NOTED. NOTED WITH RIGHT HAND # 20 PERIPHERAL LINE AND KEYANNA MIDLINE, LEFT FEMORAL MIDLINE #18, FLUSHED WITH NS, NO S/S OF INFILTRATION NOTED. RUNNING WITH PROPOFOL @ 35 MCG/KG/MIN. ALSO NOTED WITH KARISSA AV SHUNT, NO BLEEDING NOTED. WITH OGT, PATENT AND INTACT, VERIFIED PLACEMENT BY AUSCULTATION, NOTEDWITH 10ML RESIDUAL UPON ASPIRATION. FLUSHED WITH WATER, TOLERATED WELL. ALL SAFETY PRECAUTION PROVIDED. BED IN LOWEST POSITION, LOCKED. BED ALARM ARMED. CALL LIGHT WITH REACH. CONTINUE TO MONITOR.
[2022-03-18] MEDS: NEPRO 1,000 ML BOTTLE GT PRN (20:28)
--- NOTE | 2022-03-18 20:30 | NUR ---
RN NOTES TUBE FEEDING NEPHRO @ 10 ML/HR, VERIFIED PLACEMENT BY AUSCULTATION, NOTED WITH 10ML RESIDUAL UPON ASPIRATION. TUBE FEEDING TOLERATED WELL.
[2022-03-18] MEDS: IV NS 0.9% 250 ML IV PRN (21:10)
[2022-03-18] MEDS: ATORVASTATIN 40 MG TABLET GT SCH (21:26)
[2022-03-19] VITALS (24 sets, daily range): BP systolic 99–177; BP diastolic 48–73
[2022-03-19] MEDS: BLOOD SUGAR DIAGNOSTIC 1 EACH STRIP IN SCH ×4 (00:04→18:31)
[2022-03-19] MEDS: INSULIN REGULAR, HUMAN 100 UNIT/ML 3 ML VIAL SQ PRN ×4 (00:04→18:32)
--- NOTE | 2022-03-19 00:05 | NUR ---
RN NOTES NOTED WITH BLOOD SUGAR 99 mg/dL, NO INSULIN COVERAGE PER SLIDING SCALE, NO S/S OF HYPOGLYCEMIA NOTED. CONTINUE TO MONITOR.
[2022-03-19] MEDS: PROPOFOL 100 ML IV PRN (03:35)
[2022-03-19 05:06] LABS: BASOPHILS % (AUTO) 0.5 % (0.0-2.0); EOSINOPHILS % (AUTO) 3.2 % (0.0-6.0); HEMATOCRIT 25 % (39-51); HEMOGLOBIN 8.2 g/dL (13.5-17.5); LYMPHOCYTES # (AUTO) 0.4 K/uL (0.8-4.8); LYMPHOCYTES % (AUTO) 7.7 % (20.0-44.0); MEAN CORPUSCULAR HGB CONC 33 g/dl (31.0-36.0); MEAN CORPUSCULAR VOLUME 81 fL (80-96); MONOCYTES # (AUTO) 0.5 K/uL (0.1-1.30); MONOCYTES % (AUTO) 8.7 % (2.0-12.0); NEUTROPHILS # (AUTO) 4.5 K/uL (1.8-8.9); NEUTROPHILS % (AUTO) 79.9 % (43.0-81.0); PLATELET COUNT (AUTO) 125 K/uL (150-450); RED BLOOD CELL COUNT(AUTO) 3.07 MIL/uL (4.5-6.0); WHITE BLOOD COUNT (AUTO) 5.6 K/uL (4.3-11.0)
[2022-03-19 05:19] LABS: CREATININE 6.5 mg/dL (0.6-1.3); POTASSIUM 4.4 mmol/L (3.5-5.1)
--- NOTE | 2022-03-19 05:42 | NUR ---
RN NOTES NOTED WITH BLOOD SUGAR 112 mg/dL, NO INSULIN COVERAGE PER SLIDING SCALE, NO S/S OF HYPOGLYCEMIA NOTED. CONTINUE TO MONITOR.
--- NOTE | 2022-03-19 07:30 | NUR ---
RN OPENING NOTE PT IS IN BED WITH HOB >30 DEGREES. PT IS ON MECHANICAL VENT WITH ALL PRESCRIBED SETTINGS TOLERATING WELL 02 SAT 98%. PT IS SEDATED AT THIS TIME ON DIPRIVAN 35MCG. OG TUBE IS IN PLACE WITH POSITIVE PLACEMENT INFUSING WITH NEPRO @10ML/HR. PT IS ON HD REMOVED 1 LITER YESTERDAY 03/18. IV ACCESS R HAND 20G, R UA ML, L FEMORAL MIDLINE AND L UA FISTULA. BED IS LOCKED IN LOWEST POSITION X2 BED RAILS UP AND ALL HOSPITAL SAFETY MEASURES ARE IN PLACE. WILL CONTINUE TO MONITOR THIS SHIFT.
[2022-03-19] MEDS: PANTOPRAZOLE 40 MG/PACK PACK GT SCH (08:57)
[2022-03-19] MEDS: AMLODIPINE BESYLATE 5 MG TABLET GT SCH ×2 (08:58→16:28)
[2022-03-19] MEDS: ISOSORBIDE DINITRATE (20MG) 20 MG TABLET GT SCH ×2 (08:58→16:29)
[2022-03-19] MEDS: GABAPENTIN 100 MG CAPSULE GT SCH (08:59)
[2022-03-19] MEDS: hydrALAZINE HCL 50 MG TABLET GT SCH ×3 (08:59→16:28)
[2022-03-19] MEDS: CLOPIDOGREL BISULFATE 75 MG TABLET GT SCH (08:59)
[2022-03-19 11:41] LABS: ABG BASE EXCESS -0.7 mmol/L; ABG PH 7.431 (7.350-7.450); ABG PO2 102.4 mmHg (75.0-100.0); COHb 0.7 % (0.5-1.5); MetHb 0.3 % (0.0-1.5); O2Hb 95.9 % (94.0-97.0); SITE, ABG Right Radial
[2022-03-19] MEDS: CEFEPIME 1 GM in IV D5W 50 ML IV SCH (12:11)
--- NOTE | 2022-03-19 12:12 | NUR ---
RN NOTE: ACCUCHECK PT BS 125, PER SLIDING SCALE NO COVERAGE NEEDED.
--- NOTE | 2022-03-19 17:13 | NUR ---
RT PATIENT REMAINS ORALLY INTUBATED ON MECH VENT ON SIMV TOLERATING WELL THROUGHOUT SHIFT. PER DR AHN PATIENT MAY REMAIN ON SIMV MODE TOLERATED. PLACED BACK ON AC MODE IF PATIENT BECOMES DISTRESSED. AIRWAY SECURE AND PATENT. AMBU BAG AT HOB. Addendum: 03/19/22 at 1717 by RUSS SOLORIO RT Amended: Links added.
--- NOTE | 2022-03-19 19:05 | NUR ---
RN OPENING NOTES RECEIVED PATIENT ON BED , OFF-SEDATION, OPENS EYES, OCCASIONALLY MOVES UPPER EXTREMETIES STILL ORALLY INTUBATED SIZE-7.5, 24 CM BY THE LIP, ON MECHANICAL VENTILATOR , SIMV, FIO2- 40%, SETTINGS TOLERATED WELL. RESPIRATORY EVEN AND UNLABORED, NO SOB NOTED, AFEBRILE, NO S/S OF DISTRESS NOTED. KEYANNA MIDLINE, LEFT FEMORAL MIDLINE #18, FLUSHED WITH NS, NO S/S OF INFILTRATION NOTED. ALSO NOTED WITH KARISSA AV SHUNT, NO BLEEDING NOTED. WITH OGT, PATENT AND INTACT, VERIFIED PLACEMENT BY AUSCULTATION, NO RESIDUAL NOTED UPON ASPIRATION. FLUSHED WITH WATER, RUNNING WITH NEPHRO @ 10 ML/HR TOLERATED WELL. BILATERAL SOFT WRIST RESTRAINT, RELEASE AND REASSESS Q2HR FOR CIRCULATION. ALL SAFETY PRECAUTION PROVIDED. BED IN LOWEST POSITION, LOCKED. BED ALARM ARMED. CALL LIGHT WITH REACH. CONTINUE TO MONITOR.
--- NOTE | 2022-03-19 19:26 | NUR ---
RN CLOSING NOTE PT IS IN BED WITH HOB >30 DEGREES. PT IS ON MECHANICAL VENT WITH ALL PRESCRIBED SETTINGS TOLERATING WELL 02 SAT 97%. OG TUBE IS IN PLACE WITH POSITIVE PLACEMENT INFUSING WITH NEPRO @10ML/HR. PT DID NOT HAVE HD TODAY. IV ACCESS R UA ML, L FEMORAL MIDLINE AND L UA FISTULA. BED IS LOCKED IN LOWEST POSITION X2 BED RAILS UP AND ALL HOSPITAL SAFETY MEASURES ARE IN PLACE. WILL ENDORSE TO SENIOR LINUX UNIX ENGINEER NURSE FOR AMY.
[2022-03-19] MEDS: IV NS 0.9% 250 ML IV PRN (21:41)
[2022-03-19] MEDS: ATORVASTATIN 40 MG TABLET GT SCH (22:11)
[2022-03-20] VITALS (29 sets, daily range): BP systolic 93–139; BP diastolic 53–72
[2022-03-20] MEDS: BLOOD SUGAR DIAGNOSTIC 1 EACH STRIP IN SCH ×4 (00:24→18:08)
[2022-03-20] MEDS: INSULIN REGULAR, HUMAN 100 UNIT/ML 3 ML VIAL SQ PRN ×3 (00:30→18:10)
--- NOTE | 2022-03-20 00:32 | NUR ---
RN NOTES NOTED WITH BLOOD SUGAR 107 mg/dL, NO INSULIN COVERAGE PER SLIDING SCALE, NO S/S OF HYPOGLYCEMIA NOTED. CONTINUE TO MONITOR.
[2022-03-20 05:00] LABS: BASOPHILS % (AUTO) 0.5 % (0.0-2.0); EOSINOPHILS % (AUTO) 2.5 % (0.0-6.0); HEMATOCRIT 25 % (39-51); HEMOGLOBIN 8.2 g/dL (13.5-17.5); LYMPHOCYTES # (AUTO) 0.5 K/uL (0.8-4.8); LYMPHOCYTES % (AUTO) 7.8 % (20.0-44.0); MEAN CORPUSCULAR HGB CONC 33 g/dl (31.0-36.0); MEAN CORPUSCULAR VOLUME 82 fL (80-96); MONOCYTES # (AUTO) 0.8 K/uL (0.1-1.30); MONOCYTES % (AUTO) 11.2 % (2.0-12.0); NEUTROPHILS # (AUTO) 5.4 K/uL (1.8-8.9); PLATELET COUNT (AUTO) 158 K/uL (150-450); RED BLOOD CELL COUNT(AUTO) 3.09 MIL/uL (4.5-6.0); WHITE BLOOD COUNT (AUTO) 6.9 K/uL (4.3-11.0)
[2022-03-20 05:12] LABS: CALCIUM, SERUM 8.1 mg/dL (8.5-10.1); POTASSIUM 4.9 mmol/L (3.5-5.1)
[2022-03-20 05:18] LABS: CREATININE 8.3 mg/dL (0.6-1.3)
--- NOTE | 2022-03-20 06:07 | NUR ---
RN NOTES NOTED WITH BLOOD SUGAR 115 mg/dL, NO INSULIN COVERAGE PER SLIDING SCALE, NO S/S OF HYPOGLYCEMIA NOTED. CONTINUE TO MONITOR.
[2022-03-20] MEDS: hydrALAZINE HCL 50 MG TABLET GT SCH (09:00)
[2022-03-20] MEDS: AMLODIPINE BESYLATE 5 MG TABLET GT SCH (09:00)
[2022-03-20] MEDS: ISOSORBIDE DINITRATE (20MG) 20 MG TABLET GT SCH ×2 (09:00→17:00)
[2022-03-20] MEDS: CLOPIDOGREL BISULFATE 75 MG TABLET GT SCH (09:19)
[2022-03-20] MEDS: PANTOPRAZOLE 40 MG/PACK PACK GT SCH (09:19)
[2022-03-20] MEDS: GABAPENTIN 100 MG CAPSULE GT SCH (09:19)
--- NOTE | 2022-03-20 09:20 | NUR ---
DR FOWLER AT THE UNIT AND MADE AWARE REGARDING SBP READING UNDER 110s AND DUE HTN/BP MEDS NOT GIVEN, OKAYED IT.
[2022-03-20 09:50] LABS: ABG BASE EXCESS -5.5 mmol/L; ABG PCO2 40.9 mmHg (35.0-45.0); ABG PH 7.314 (7.350-7.450); AaDO2 160.2 mmHg; COHb 1.2 % (0.5-1.5); MetHb 0.3 % (0.0-1.5); O2Hb 91.6 % (94.0-97.0); SITE, ABG Right Radial
--- NOTE | 2022-03-20 11:30 | NUR ---
HD SESSION STARTED BY HD-RN.
[2022-03-20] MEDS: IV NS 0.9% 250 ML IV PRN (12:00)
[2022-03-20] MEDS: CEFEPIME 1 GM in IV D5W 50 ML IV SCH (12:00)
[2022-03-20] MEDS: NEPRO 1,000 ML BOTTLE GT PRN (12:01)
--- NOTE | 2022-03-20 13:20 | NUR ---
PER PHARMACIST-MARLEY MCCLOUD [facility] MED'N TODAY DUE TO LEVEL=21; PATIENT ON HD SESSION ONGOING.
[2022-03-20] MEDS: VANCOMYCIN 500 MG in IV D5W 100 ML IV PRN (13:21)
[2022-03-20] MEDS ORDERED: EPOETIN ALFA-EPBX 10,000 UNIT/ML VIAL IV ONE (15:00)
[2022-03-20] MEDS: ATORVASTATIN 40 MG TABLET GT SCH (22:27)
[2022-03-21] VITALS (33 sets, daily range): BP systolic 89–130; BP diastolic 32–78
[2022-03-21] MEDS: BLOOD SUGAR DIAGNOSTIC 1 EACH STRIP IN SCH ×4 (00:29→18:15)
[2022-03-21 05:07] LABS: BASOPHILS % (AUTO) 0.5 % (0.0-2.0); EOSINOPHILS % (AUTO) 1.5 % (0.0-6.0); HEMATOCRIT 26 % (39-51); HEMOGLOBIN 8.4 g/dL (13.5-17.5); LYMPHOCYTES # (AUTO) 0.4 K/uL (0.8-4.8); LYMPHOCYTES % (AUTO) 6.2 % (20.0-44.0); MEAN CORPUSCULAR HGB CONC 32 g/dl (31.0-36.0); MEAN CORPUSCULAR VOLUME 81 fL (80-96); MONOCYTES % (AUTO) 14.3 % (2.0-12.0); NEUTROPHILS # (AUTO) 5.6 K/uL (1.8-8.9); NEUTROPHILS % (AUTO) 77.5 % (43.0-81.0); PLATELET COUNT (AUTO) 193 K/uL (150-450); RED BLOOD CELL COUNT(AUTO) 3.24 MIL/uL (4.5-6.0); WHITE BLOOD COUNT (AUTO) 7.2 K/uL (4.3-11.0)
[2022-03-21 05:18] LABS: CALCIUM, SERUM 8.7 mg/dL (8.5-10.1); CREATININE 6.7 mg/dL (0.6-1.3); POTASSIUM 4.9 mmol/L (3.5-5.1)
--- NOTE | 2022-03-21 07:05 | NUR ---
ROLL INSPECTOR OPENING NOTE: PT. RECEIVED IN BED, INTUBATED AND ON CPAP MODE VIA VENTILATOR. ALERT, ABLE TO FOLLOW SIMPLE COMMANDS SUCH TRACKING OF EYES AND SQUEEZING OF HANDS. NODS HEAD WITH YES/NO QUESTIONS. NO COMPLAINTS OF PAIN AT THIS TIME. ETT - 7.5/24; CPAP MODE WITH PRESSURE SUPPORT - 12; PEEP - 5; FIO2 - 50%. CHEST RISING SYMMETRICALLY, NO S/S OF RESPIRATORY DISTRESS. BRANNER MACHINE TENDER READS NSR WITH HR OF 75 BPM AT THIS TIME. SACRAL BLISTERS NOTED ON SACRUM, WAITING FOR WOUND CONSULT. HAS OGT WITH NEPRO RUNNING AT 10 ML/HR, NO GASTRIC RESIDUAL NOTED. PT. TOLERATING FEEDING WELL. IV ACCESS ON KEYANNA MIDLINE, PATENT AND SALINE LOCKED; L FEMORAL MIDLINE WITH NS RUNNING AT TKO. IV SITE DRESSINGS C/D/I WITH NO S/S OF INFILTRATION. PT. HAS KARISSA A/V SHUNT, THRILL AND BRUIT PRESENT. PT. ON SOFT BILATERAL WRIST RESTRAINTS, PALPABLE PULSES NOTED AND CAP REFILL < 3 SECS ON ALL EXTREMITIES. SAFETY MEASURES IN PLACE: BED IN LOWEST AND LOCKED POSITION, HOB ELEVATED AT 45 DEGREES, BED ALARM ON, CALL LIGHT WITHIN REACH, SIDE RAILS UP X2. WILL TURN AND REPOSITION IN BED AT LEAST Q2H. WILL CONTINUE TO MONITOR PT. FOR ANY CHANGES.
--- NOTE | 2022-03-21 07:32 | NUR ---
WOUND CARE CONSULT: PT PRESENTS WITH SCARRING TO UPPER BACK WHICH WAS PRESENT ON ADMISSION. PT ALSO NOTED TO HAVE SACRAL INTACT DEEP TISSUE INJURY. RECOMMENDATIONS MADE FOR SKIN PROTECTION AND DISCUSSED WITH NURSING STAFF. PT NOTED TO HAVE MULTIPLE CO-MORBIDITIES INCLUDING ACUTE HYPOXIC RESPIRATORY FAILURE SECONDARY TO CONGESTIVE HEART FAILURE (CURRENTLY INTUBATED), END STAGE RENAL FAILURE (ON HEMODIALYSIS), CORONARY ARTERY DISEASE, DIABETES, AND HYPERTENSION. PT IS STATUS POST CARDIAC ARREST (CODE BLUE X 2) REQUIRING INTUBATION. DUE TO MULTIPLE CO-MORBIDITIES, FURTHER SKIN BREAKDOWN MAY BE UNAVOIDABLE. PT IS ON LIBBY ISOFLEX LOW AIRLOSS BED. ALL SKIN PROTECTION MEASURES ARE IN PLACE. IN AGREEMENT WITH PLAN OF CARE. Addendum: 03/21/22 at 0735 by SKYLER JAMES Amended: Links added. Addendum: 03/21/22 at 1020 by SKYLER JAMES RECEIVED INFORMATION FROM NURSING STAFF THAT PT WAS PREVIOUSLY NOTED TO BE SCOOTING HIS BUTTOCKS IN THE BED.
--- NOTE | 2022-03-21 08:10 | NUR ---
pt extubated per. md order. placed on simple mask. 8lpm. zero distress noted
[2022-03-21] MEDS: ACETYLCYSTEINE 10% SOLN 400 MG/4 ML VIAL NEB SCH ×3 (10:30→23:14)
[2022-03-21] MEDS: ALBUTEROL HALF STRENGTH 1.25 MG/3 ML VIAL.NEB NEB SCH ×5 (10:30→23:14)
[2022-03-21] MEDS ORDERED: PROPOFOL 100 ML IV PRN (11:00)
--- NOTE | 2022-03-21 11:10 | NUR ---
pt reintubated post abg per md order. settings as ordered zero distress noted. alarms set and audible ambu-bag at head of bed. b/s equal.
[2022-03-21] MEDS: PROPOFOL 100 ML IV PRN ×2 (11:21→18:16)
[2022-03-21] MEDS: IPRATROPIUM NEB FS 0.5 MG/2.5 ML AMPUL.NEB NEB SCH ×4 (11:30→23:14)
--- NOTE | 2022-03-21 11:30 | NUR ---
HEAD OF CYTOGENETICS NOTE: PT. EXTUBATED AT AROUND 0810, WAS PUT ON SIMPLE MASK AT 8 L/MIN, TOLERATED WELL. BUT THEN PT. STARTED TO DESATURATE AROUND 1030, SIMPLE MASK MAXED WITH NO SIGNIFICANT IMPROVEMENT ON O2 SAT. PT. WAS PUT ON NON-REBREATHER MASK AT 15L WITH NO IMPROVEMENT. ABG SHOWED RESPIRATORY ACIDOSIS. PT. RE-INTUBATED AT 1110 WITH ETT - 11/02; AC - 24; VT - 450; FIO2 - 100%; PEEP - 8. PT. NOW SATURATING AT 98% AND NO S/S OF RESPIRATORY DISTRESS. DIPRIVAN DRIP STARTED. WILL CONTINUE TO MONITOR PT. FOR ANY CHANGES.
[2022-03-21] MEDS: IV NS 0.9% 250 ML IV PRN (11:51)
[2022-03-21] MEDS: CEFEPIME 1 GM in IV D5W 50 ML IV SCH (12:01)
[2022-03-21] MEDS: INSULIN REGULAR, HUMAN 100 UNIT/ML 3 ML VIAL SQ PRN ×2 (12:09→18:18)
[2022-03-21 12:15] LABS: ABG BASE EXCESS -7.1 mmol/L; ABG OXYGEN SATURATION 99.1 % (92.0-98.5); ABG PCO2 47.2 mmHg (35.0-45.0); ABG PH 7.244 (7.350-7.450); ABG PO2 355.3 mmHg (75.0-100.0); AaDO2 310.5 mmHg; COHb 1.1 % (0.5-1.5); MetHb 0.3 % (0.0-1.5); O2Hb 97.7 % (94.0-97.0); PEEP,BG 8 cm H2O; SITE, ABG Right Radial; VT, ABG 450 mL
[2022-03-21] MEDS: ISOSORBIDE DINITRATE (20MG) 20 MG TABLET GT SCH ×2 (12:59→17:00)
[2022-03-21] MEDS: GABAPENTIN 100 MG CAPSULE GT SCH (13:05)
[2022-03-21] MEDS: CLOPIDOGREL BISULFATE 75 MG TABLET GT SCH (13:05)
[2022-03-21] MEDS: PANTOPRAZOLE 40 MG/PACK PACK GT SCH (13:05)
[2022-03-21] MEDS: NEPRO 1,000 ML BOTTLE GT PRN (13:06)
[2022-03-21] MEDS ORDERED: ROCURONIUM BROMIDE 50 MG/5 ML IV ONE (13:10)
[2022-03-21] MEDS ORDERED: ETOMIDATE 2 MG/ML VIAL IV ONE (13:10)
--- NOTE | 2022-03-21 13:15 | NUR ---
THREAD CLIPPER NOTE: NGT INSERTED. PLACEMENT CONFIRMED BY CHEST XRAY. PT. RESTARTED ON TUBE FEEDING WITH NEPRO AT 10ML/HR PER DR. LEE'S ORDER. ISORDIL 20MG SCHEDULED THIS AM HELD FOR BP OF 90/55. NEURONTIN, PLAVIX AND PROTONIX SCHEDULED THIS AM GIVEN VIA NGT. NO GASTRIC RESIDUAL NOTED. WILL CONTINUE TO MONITOR PT. FOR ANY CHANGES.
[2022-03-21] MEDS: AMIODARONE HCL 200 MG TABLET GT SCH (18:03)
--- NOTE | 2022-03-21 19:05 | NUR ---
VEHICLE BODY SANDER CLOSING NOTE: PT. REMAINS IN BED, INTUBATED AND SEDATED. MOVES EYELIDS WITH PAINFUL STIMULI. ETT - 11/02; AC - 24; VT - 475; FIO2 - 50%; PEEP - 8. NO S/S OF RESPIRATORY DISTRESS. TOOLS DEVELOPER READS NSR WITH HR OF 66 BPM AT THIS TIME. WOUND TREATMENT DONE ORDERED. HAS NGT IN THE L NARE AT 65CM, WITH NEPRO RUNNING AT 10 ML/HR, NO GASTRIC RESIDUAL NOTED. PT. TOLERATING FEEDING WELL. IV ACCESS ON KEYANNA MIDLINE, PATENT AND SALINE LOCKED; L FEMORAL MIDLINE WITH NS RUNNING AT TKO AND DIPRIVAN DRIP AT 20 MCG/KG/MIN. IV SITE DRESSINGS C/D/I WITH NO S/S OF INFILTRATION. PT. HAS KARISSA A/V SHUNT, THRILL AND BRUIT PRESENT. PT. STILL ON SOFT BILATERAL WRIST RESTRAINTS, PALPABLE PULSES NOTED AND CAP REFILL < 3 SECS ON ALL EXTREMITIES. SAFETY MEASURES MAINTAINED: BED IN LOWEST AND LOCKED POSITION, HOB ELEVATED AT 45 DEGREES, BED ALARM ON, CALL LIGHT WITHIN REACH, SIDE RAILS UP X2. TURNED AND REPOSITIONED IN BED AT LEAST Q2H. ENDORSED CONTINUITY OF CARE TO RING STAMPER RN.
[2022-03-21] MEDS: ATORVASTATIN 40 MG TABLET GT SCH (22:09)
--- NOTE | 2022-03-21 23:00 | NUR ---
ICU/RN: AIR MATRESS PLACED ON BED. FULL BED BATH GIVEN. LINENS CHANGED. WOUND PHOTOS TAKEN AND PLACED IN CHART.
[2022-03-22] VITALS (39 sets, daily range): BP systolic 100–176; BP diastolic 47–77
[2022-03-22] MEDS: BLOOD SUGAR DIAGNOSTIC 1 EACH STRIP IN SCH ×4 (00:42→18:36)
[2022-03-22] MEDS: PROPOFOL 100 ML IV PRN ×4 (02:40→21:11)
[2022-03-22] MEDS: ALBUTEROL HALF STRENGTH 1.25 MG/3 ML VIAL.NEB NEB SCH ×6 (03:34→22:59)
[2022-03-22] MEDS: IPRATROPIUM NEB FS 0.5 MG/2.5 ML AMPUL.NEB NEB SCH ×6 (03:34→22:59)
[2022-03-22 04:30] LABS: BASOPHILS % (AUTO) 0.4 % (0.0-2.0); EOSINOPHILS % (AUTO) 1.6 % (0.0-6.0); HEMATOCRIT 25 % (39-51); HEMOGLOBIN 8.1 g/dL (13.5-17.5); LYMPHOCYTES # (AUTO) 0.5 K/uL (0.8-4.8); LYMPHOCYTES % (AUTO) 5.8 % (20.0-44.0); MEAN CORPUSCULAR HGB CONC 32 g/dl (31.0-36.0); MEAN CORPUSCULAR VOLUME 82 fL (80-96); MONOCYTES # (AUTO) 1.3 K/uL (0.1-1.30); MONOCYTES % (AUTO) 15.4 % (2.0-12.0); NEUTROPHILS # (AUTO) 6.3 K/uL (1.8-8.9); NEUTROPHILS % (AUTO) 76.8 % (43.0-81.0); PLATELET COUNT (AUTO) 233 K/uL (150-450); WHITE BLOOD COUNT (AUTO) 8.1 K/uL (4.3-11.0)
[2022-03-22 04:45] LABS: CALCIUM, SERUM 8.7 mg/dL (8.5-10.1); POTASSIUM 5.7 mmol/L (3.5-5.1)
[2022-03-22 04:53] LABS: CREATININE 8.9 mg/dL (0.6-1.3)
--- NOTE | 2022-03-22 07:10 | NUR ---
BOBTAILER OPENING NOTE: RECEIVED PT. IN BED, INTUBATED AND SEDATED. MOVES EYELIDS WITH PAINFUL STIMULI. ETT - 11/02; AC - 24; VT - 475; FIO2 - 50%; PEEP - 8. NO S/S OF RESPIRATORY DISTRESS. GRINDER TENDER READS NSR WITH HR OF 76 BPM AT THIS TIME. SACRAL WOUND NOTED, WILL DO WOUND TREATMENT ORDERED. HAS NGT IN THE L NARE AT 65CM, WITH NEPRO RUNNING AT 10 ML/HR, NO GASTRIC RESIDUAL NOTED. PT. TOLERATING FEEDING WELL. IV ACCESS ON KEYANNA MIDLINE, PATENT AND SALINE LOCKED; L FEMORAL MIDLINE WITH NS RUNNING AT TKO AND DIPRIVAN DRIP AT 30 MCG/KG/MIN. IV SITE DRESSINGS C/D/I WITH NO S/S OF INFILTRATION. PT. HAS KARISSA A/V SHUNT, THRILL AND BRUIT PRESENT. PT. STILL ON SOFT BILATERAL WRIST RESTRAINTS, PALPABLE PULSES NOTED AND CAP REFILL < 3 SECS ON ALL EXTREMITIES. SAFETY MEASURES IN PLACE: BED IN LOWEST AND LOCKED POSITION, HOB ELEVATED AT 45 DEGREES, BED ALARM ON, CALL LIGHT WITHIN REACH, SIDE RAILS UP X2. WILL TURN AND REPOSITION IN BED AT LEAST Q2H. WILL CONTINUE TO MONITOR PT. FOR ANY CHANGES.
[2022-03-22] MEDS: ACETYLCYSTEINE 10% SOLN 400 MG/4 ML VIAL NEB SCH ×3 (08:02→22:59)
[2022-03-22 08:23] LABS: ABG BASE EXCESS -3.2 mmol/L; ABG OXYGEN SATURATION 98.4 % (92.0-98.5); ABG PH 7.308 (7.350-7.450); ABG PO2 150.1 mmHg (75.0-100.0); AaDO2 153.5 mmHg; COHb 1.3 % (0.5-1.5); MetHb 0.3 % (0.0-1.5); O2Hb 96.8 % (94.0-97.0); PEEP,BG 8 cm H2O; SITE, ABG Right Radial; VT, ABG 475 mL
[2022-03-22] MEDS: ISOSORBIDE DINITRATE (20MG) 20 MG TABLET GT SCH ×2 (09:00→17:47)
[2022-03-22] MEDS: GABAPENTIN 100 MG CAPSULE GT SCH (09:26)
[2022-03-22] MEDS: CLOPIDOGREL BISULFATE 75 MG TABLET GT SCH (09:26)
[2022-03-22] MEDS: PANTOPRAZOLE 40 MG/PACK PACK GT SCH (09:26)
--- NOTE | 2022-03-22 09:26 | NUR ---
WOUND CARE FOLLOW UP: PT SEEN FOR RE-EVALUATION OF SACRAL DEEP TISSUE INJURY WHICH IS MOSTLY INTACT WITH SOME EDEMA BLISTERS AND SCANT PINK DRAINAGE. PT HAS BEEN RE-INTUBATED. [facility]. ALL SKIN PROTECTION AND WOUND CARE RECOMMENDATIONS DISCUSSED WITH NURSING STAFF. SURGICAL CONSULT REQUESTED FROM DR KOHANZADEH. BOWDEN IN AGREEMENT WITH PLAN OF CARE. Addendum: 03/22/22 at 1170 by SKYLER MURRIETA WNDNU Amended: Links added.
--- NOTE | 2022-03-22 10:00 | NUR ---
DEATH SURVEYS CODER NOTE: NO SEDATION VACATION TODAY PER DR. SILVA'S ORDER. PT. REMAINS ON DIPRIVAN DRIP AT 25 MCG/KG/MIN. WILL CONTINUE TO MONITOR PT.'S NEURO STATUS.
[2022-03-22 10:46] LABS: BAND % (MANUAL) 4 % (0.0-5.0); EOSINOPHILS % (MANUAL) 2 % (0-4); LYMPHOCYTES % (MANUAL) 6 % (16-48); MONOCYTES % (MANUAL) 11 % (0-11.0); NEUTROPHILS % (MANUAL) 77 (42-76)
[2022-03-22] MEDS: INSULIN REGULAR, HUMAN 100 UNIT/ML 3 ML VIAL SQ PRN ×2 (11:45→18:37)
[2022-03-22] MEDS: IV NS 0.9% 250 ML IV PRN (12:40)
[2022-03-22] MEDS: CEFEPIME 1 GM in IV D5W 50 ML IV SCH (13:22)
[2022-03-22] MEDS: VANCOMYCIN 500 MG in IV D5W 100 ML IV PRN (14:18)
--- NOTE | 2022-03-22 14:20 | NUR ---
ASSOCIATE DOCTOR NOTE: PT. WAS STARTED ON HEMODIALYSIS (HD) AT 1010 AND ENDED AT 1310. GOT 2 LITERS OF FLUID OUT. VS REMAINS STABLE WITH A SHORT EPISODE OF TACHYCARDIA AT LOW 100'S TOWARDS END OF HD. VANCOMYCIN GIVEN AT 1418 PER MD ORDER. VANCO TROUGH TODAY IS 18. WILL CONTINUE TO MONITOR PT. FOR ANY CHANGES.
[2022-03-22] MEDS: NEPRO 1,000 ML BOTTLE GT PRN (14:46)
[2022-03-22] MEDS ORDERED: EPOETIN ALFA-EPBX 20,000 UNIT/ML VIAL IV ONE (15:00)
--- NOTE | 2022-03-22 19:05 | NUR ---
GROCERY ASSOCIATE CLOSING NOTE: PT. REMAINS IN BED, INTUBATED AND SEDATED. MOVES EYELIDS WITH PAINFUL STIMULI. ETT - 11/02; AC - 24; VT - 475; FIO2 - 35%; PEEP - 8. NO S/S OF RESPIRATORY DISTRESS. KIT ASSEMBLER READS NSR WITH HR OF 90 BPM AT THIS TIME. WOUND TREATMENT DONE ORDERED. NGT IN THE L NARE AT 65CM, WITH NEPRO RUNNING AT 10 ML/HR, 0-20 ML GASTRIC RESIDUAL NOTED THIS SHIFT. PT. TOLERATING FEEDING WELL. IV ACCESS ON KEYANNA MIDLINE, PATENT AND SALINE LOCKED; L FEMORAL MIDLINE WITH NS RUNNING AT TKO AND DIPRIVAN DRIP AT 25 MCG/KG/MIN. IV SITE DRESSINGS C/D/I WITH NO S/S OF INFILTRATION. PT. HAS KARISSA A/V SHUNT, THRILL AND BRUIT PRESENT. PT. STILL ON SOFT BILATERAL WRIST RESTRAINTS, PALPABLE PULSES NOTED AND CAP REFILL < 3 SECS ON ALL EXTREMITIES. SAFETY MEASURES MAINTAINED: BED IN LOWEST AND LOCKED POSITION, HOB ELEVATED AT 45 DEGREES, BED ALARM ON, CALL LIGHT WITHIN REACH, SIDE RAILS UP X2. TURNED AND REPOSITIONED IN BED AT LEAST Q2H. ENDORSED CONTINUITY OF CARE TO FOOD TRADES ASSISTANTS RN.
--- NOTE | 2022-03-22 20:40 | NUR ---
ICU/RN: PT BP HAS BEEN CLIMBING STEADILY. CURRENTLY 172/66 SPOKE WITH LILIANA ZAMARRIPA ACNP NEW ORDERS RECIEVED FOR HYDRALAZINE 10MG IVP Q6H PRN FOR SBP GREATER THAN 160.
[2022-03-22] MEDS: hydrALAZINE HCL IV 20 MG VIAL IV PRN (20:50)
[2022-03-22] MEDS: ATORVASTATIN 40 MG TABLET GT SCH (21:15)
[2022-03-23] VITALS (43 sets, daily range): BP systolic 107–184; BP diastolic 48–72
[2022-03-23] MEDS: BLOOD SUGAR DIAGNOSTIC 1 EACH STRIP IN SCH ×5 (00:20→23:06)
[2022-03-23] MEDS: PROPOFOL 100 ML IV PRN ×2 (03:20→15:52)
[2022-03-23] MEDS: IPRATROPIUM NEB FS 0.5 MG/2.5 ML AMPUL.NEB NEB SCH ×5 (03:30→20:17)
[2022-03-23] MEDS: ALBUTEROL HALF STRENGTH 1.25 MG/3 ML VIAL.NEB NEB SCH ×6 (03:30→20:17)
--- NOTE | 2022-03-23 04:00 | NUR ---
ICU/RN: FULL BED BATH GIVEN. LINENS CHANGED. NEW WOUND DRESSING ORDERS CARRIED OUT.
[2022-03-23 05:34] LABS: BASOPHILS % (AUTO) 0.4 % (0.0-2.0); HEMATOCRIT 26 % (39-51); HEMOGLOBIN 8.3 g/dL (13.5-17.5); LYMPHOCYTES # (AUTO) 0.4 K/uL (0.8-4.8); LYMPHOCYTES % (AUTO) 5.3 % (20.0-44.0); MEAN CORPUSCULAR HGB CONC 32 g/dl (31.0-36.0); MEAN CORPUSCULAR VOLUME 81 fL (80-96); MONOCYTES # (AUTO) 1.1 K/uL (0.1-1.30); MONOCYTES % (AUTO) 14.2 % (2.0-12.0); NEUTROPHILS % (AUTO) 76.1 % (43.0-81.0); PLATELET COUNT (AUTO) 243 K/uL (150-450); RED BLOOD CELL COUNT(AUTO) 3.17 MIL/uL (4.5-6.0); WHITE BLOOD COUNT (AUTO) 7.9 K/uL (4.3-11.0)
[2022-03-23 05:47] LABS: CALCIUM, SERUM 8.7 mg/dL (8.5-10.1); CREATININE 6.1 mg/dL (0.6-1.3); MAGNESIUM 2.3 mg/dL (1.8-2.4); PHOSPHORUS 7.3 mg/dL (2.5-4.9); POTASSIUM 4.6 mmol/L (3.5-5.1)
[2022-03-23] MEDS: INSULIN REGULAR, HUMAN 100 UNIT/ML 3 ML VIAL SQ PRN ×3 (06:22→18:08)
--- NOTE | 2022-03-23 07:05 | NUR ---
ELECTION CLERK OPENING NOTE: RECEIVED PT. IN BED, INTUBATED AND SEDATED. MOVES EYELIDS WITH PAINFUL STIMULI. ETT - 11/02; AC - 24; VT - 475; FIO2 - 35%; PEEP - 8. NO S/S OF RESPIRATORY DISTRESS. DIRECTOR OF PUBLIC WORKS READS NSR WITH HR OF 70 BPM AT THIS TIME. SACRAL WOUND NOTED, WILL DO WOUND TREATMENT ORDERED. HAS NGT IN THE L NARE AT 65CM, WITH NEPRO RUNNING AT 10 ML/HR, 200 ML GASTRIC RESIDUAL NOTED. TUBE FEEDING STOPPED AND WILL RECHECK LATER. DR. NAM NOTIFIED. IV ACCESS ON KEYANNA MIDLINE, PATENT AND SALINE LOCKED; L FEMORAL MIDLINE WITH NS RUNNING AT TKO AND DIPRIVAN DRIP AT 25 MCG/KG/MIN. IV SITE DRESSINGS C/D/I WITH NO S/S OF INFILTRATION. PT. HAS KARISSA A/V SHUNT, THRILL AND BRUIT PRESENT. PT. STILL ON SOFT BILATERAL WRIST RESTRAINTS, PALPABLE PULSES NOTED AND CAP REFILL < 3 SECS ON ALL EXTREMITIES. SAFETY MEASURES IN PLACE: BED IN LOWEST AND LOCKED POSITION, HOB ELEVATED AT 45 DEGREES, BED ALARM ON, CALL LIGHT WITHIN REACH, SIDE RAILS UP X2. WILL TURN AND REPOSITION IN BED AT LEAST Q2H. WILL CONTINUE TO MONITOR PT. FOR ANY CHANGES.
[2022-03-23] MEDS: ACETYLCYSTEINE 10% SOLN 400 MG/4 ML VIAL NEB SCH ×2 (08:06→16:14)
[2022-03-23] MEDS: ISOSORBIDE DINITRATE (20MG) 20 MG TABLET GT SCH ×2 (08:50→17:00)
[2022-03-23] MEDS: PANTOPRAZOLE 40 MG/PACK PACK GT SCH (09:06)
[2022-03-23] MEDS: GABAPENTIN 100 MG CAPSULE GT SCH (09:07)
[2022-03-23] MEDS: CLOPIDOGREL BISULFATE 75 MG TABLET GT SCH (09:07)
[2022-03-23 11:38] LABS: BAND % (MANUAL) 2 % (0.0-5.0); EOSINOPHILS % (MANUAL) 2 % (0-4); LYMPHOCYTES % (MANUAL) 12 % (16-48); MONOCYTES % (MANUAL) 10 % (0-11.0); NEUTROPHILS % (MANUAL) 74 (42-76)
--- NOTE | 2022-03-23 12:15 | NUR ---
RAILROAD CAR REPAIRMAN NOTE: PT. OFF DIPRIVAN DRIP SINCE [address] SILVA'S ORDER. PT. OPENS EYES NOW TO TACTILE AND PAINFUL STIMULI. STILL LETHARGIC BUT ABLE TO FOLLOW SIMPLE COMMANDS SUCH EYE TRACKING AND HAND SQUEEZES. REMAINS ON ETT ON AC MODE @ 24; VT - 475; FIO2 - 35%; PEEP - 5. ACTUAL RESPIRATORY RATE REMAINS AT 24 BREATHS/MIN SATURATING AT 97%. PT CALM AND COOPERATIVE. SOFT BILATERAL RESTRAINTS ON, PALPABLE PULSES AND CAP REFILL < 3 SECS NOTED ON ALL EXTREMITIES. WILL CONTINUE TO MONITOR PT. FOR ANY CHANGES.
[2022-03-23] MEDS: hydrALAZINE HCL IV 20 MG VIAL IV PRN ×2 (13:33→20:01)
--- NOTE | 2022-03-23 13:53 | NUR ---
CAD APPLICATION SUPPORT SPECIALIST NOTE: PT. NOTED TO HAVE A GASTRIC RESIDUAL OF 180 ML AT 1200. FEEDING STILL ON HOLD. DR. NAM NOTIFIED AND ORDERED ERYTHROMYCIN 500 MG VIA G-TUBE Q6H. WILL FOLLOW ORDERS AND CONTINUE TO MONITOR PT. FOR ANY CHANGES.
[2022-03-23] MEDS: IV NS 0.9% 250 ML IV PRN (14:19)
[2022-03-23] MEDS: ERYTHROMYCIN ETHYLSUCCINATE 200 MG/5 ML SUSPENSION GT SCH ×2 (14:52→21:03)
[2022-03-23] MEDS ORDERED: EPOETIN ALFA-EPBX 10,000 UNIT/ML VIAL IV ONE (15:00)
--- NOTE | 2022-03-23 15:00 | NUR ---
EXERCISE PLANNER NOTE: PT.'S BP AT 1330 WAS AT 168/59 WITH HR OF 82 BPM. ADMINISTERED HYDRALAZINE 10 MG IV AT 1333 PER MD'S ORDER. PT.'S BP IS NOW AT 142/59 WITH HR OF 81 BPM. WILL CONTINUE TO MONITOR PT.'S BP.
--- NOTE | 2022-03-23 16:00 | NUR ---
ELEVATORS INSPECTOR NOTE: DIPRIVAN DRIP STARTED AGAIN PER DR. SILVA'S ORDER. DIPRIVAN DRIP RATE NOW AT 5 MCG/KG/MIN. PT. SEDATED BUT ABLE TO OPEN EYES TO TACTILE AND PAINFUL STIMULI; AND SOMETIMES WITH CALLING HIS NAME. DR. SILVA SPECIFIED TO KEEP PT. SEDATED AT LOWEST POSSIBLE RATE WITH POSSIBLE EXTUBATION TOMORROW. WILL ENDORSE TO DEBONER RN AND CONTINUE TO MONITOR PT. FOR ANY CHANGES.
[2022-03-23] MEDS: NEPRO 1,000 ML BOTTLE GT PRN (18:14)
--- NOTE | 2022-03-23 18:15 | NUR ---
HAND WOODWORKING SANDER NOTE: ERYTHROMYCIN ETHYLSUCCINATE GIVEN VIA GTUBE AT [address] NAM'S ORDER. GASTRIC RESIDUAL AT 1600 WAS AT 110 ML. RECHECKED AT 1800 AND NO GASTRIC RESIDUAL NOTED. TUBE FEEDING WITH NEPRO AT 10 ML/HR RESTARTED AT 1814. WILL CONTINUE TO MONITOR PT. FOR S/S OF ASPIRATION.
--- NOTE | 2022-03-23 19:05 | NUR ---
ASSOCIATE PROFESSOR OF GEOGRAPHY CLOSING NOTE: PT. REMAINS IN BED, INTUBATED AND SEDATED. OPENS EYES WITH TACTILE AND PAINFUL STIMULI. ETT - 11/02; AC - 24; VT - 475; FIO2 - 35%; PEEP - 5. NO S/S OF RESPIRATORY DISTRESS AT THIS TIME. SECURITY SITE SUPERVISOR READS NSR WITH HR OF 88 BPM AT THIS TIME. WOUND TREATMENT DONE ORDERED. PT. STILL HAS NGT IN THE L NARE AT 65CM, WITH NEPRO RUNNING AT 10 ML/HR, NO GASTRIC RESIDUAL NOTED AT THIS TIME. NO BM THIS SHIFT. IV ACCESS ON KEYANNA MIDLINE, PATENT AND SALINE LOCKED; L FEMORAL MIDLINE WITH NS RUNNING AT TKO AND DIPRIVAN DRIP AT 5 MCG/KG/MIN. IV SITE DRESSINGS C/D/I WITH NO S/S OF INFILTRATION. PT. HAS KARISSA A/V SHUNT, THRILL AND BRUIT PRESENT. PT. STILL ON SOFT BILATERAL WRIST RESTRAINTS, PALPABLE PULSES NOTED AND CAP REFILL < 3 SECS ON ALL EXTREMITIES. SAFETY MEASURES MAINTAINED: BED IN LOWEST AND LOCKED POSITION, HOB ELEVATED AT 45 DEGREES, BED ALARM ON, CALL LIGHT WITHIN REACH, SIDE RAILS UP X2. TURNED AND REPOSITIONED IN BED AT LEAST Q2H. ENDORSED CONTINUITY OF CARE TO HOTEL GENERAL MANAGER RN HILLARY.
[2022-03-23] MEDS: ATORVASTATIN 40 MG TABLET GT SCH (21:02)
[2022-03-24] VITALS (68 sets, daily range): BP systolic 102–176; BP diastolic 45–86
[2022-03-24] MEDS: ACETYLCYSTEINE 10% SOLN 400 MG/4 ML VIAL NEB SCH ×4 (00:07→23:30)
[2022-03-24] MEDS: ALBUTEROL HALF STRENGTH 1.25 MG/3 ML VIAL.NEB NEB SCH ×6 (00:07→23:30)
[2022-03-24] MEDS: IPRATROPIUM NEB FS 0.5 MG/2.5 ML AMPUL.NEB NEB SCH ×7 (00:07→23:30)
[2022-03-24] MEDS: ERYTHROMYCIN ETHYLSUCCINATE 200 MG/5 ML SUSPENSION GT SCH ×4 (02:17→21:15)
[2022-03-24] MEDS: PROPOFOL 100 ML IV PRN (03:30)
[2022-03-24 04:32] LABS: BASOPHILS % (AUTO) 0.5 % (0.0-2.0); EOSINOPHILS % (AUTO) 3.9 % (0.0-6.0); HEMATOCRIT 26 % (39-51); HEMOGLOBIN 8.4 g/dL (13.5-17.5); LYMPHOCYTES # (AUTO) 0.5 K/uL (0.8-4.8); LYMPHOCYTES % (AUTO) 6.2 % (20.0-44.0); MEAN CORPUSCULAR HGB CONC 32 g/dl (31.0-36.0); MEAN CORPUSCULAR VOLUME 82 fL (80-96); MONOCYTES % (AUTO) 11.9 % (2.0-12.0); NEUTROPHILS # (AUTO) 6.8 K/uL (1.8-8.9); NEUTROPHILS % (AUTO) 77.5 % (43.0-81.0); PLATELET COUNT (AUTO) 270 K/uL (150-450); RED BLOOD CELL COUNT(AUTO) 3.19 MIL/uL (4.5-6.0); WHITE BLOOD COUNT (AUTO) 8.7 K/uL (4.3-11.0)
[2022-03-24 04:45] LABS: CALCIUM, SERUM 8.5 mg/dL (8.5-10.1); MAGNESIUM 2.7 mg/dL (1.8-2.4); POTASSIUM 4.8 mmol/L (3.5-5.1)
[2022-03-24 04:51] LABS: PHOSPHORUS 8.2 mg/dL (2.5-4.9)
[2022-03-24] MEDS: BLOOD SUGAR DIAGNOSTIC 1 EACH STRIP IN SCH ×4 (05:31→23:05)
--- NOTE | 2022-03-24 08:00 | NUR ---
RN NOTES RECEIVED PATIENT SEDATED DIPRIVAN 10 MCG/KG/MIN, IV ACCESS ON KEYANNA MIDLINE, PATENT AND SALINE LOCKED; L FEMORAL MIDLINE WITH NS RUNNING AT TKO IV SITE DRESSINGS, KARISSA A/V SHUNT, THRILL AND BRUIT PRESENT. PT. STILL ON SOFT BILATERAL WRIST RESTRAINTS, PALPABLE PULSES NOTED AND CAP REFILL < 3 SECS ON ALL EXTREMITIES. RUNNING NEPRO @10ML/HR, RECHECKED RESIDUAL 10ML, HOB ELEVATED AT 45 DEGREES, CALL LIGHT WITHIN REACH, SIDE RAILS UP X2. TURNED AND REPOSITIONED Q2HR.
--- NOTE | 2022-03-24 08:41 | NUR ---
rn notes patient getting HD at this time, awake, get order via Dr Rg to stop sedation and follow patient mental status. titrated diprivan per protocol. will follow up.
--- NOTE | 2022-03-24 09:30 | NUR ---
rn notes patient calm and cooperative, per dr Rg change vent setting [id number], rt aware of.
[2022-03-24] MEDS: GABAPENTIN 100 MG CAPSULE GT SCH (10:35)
[2022-03-24] MEDS: ISOSORBIDE DINITRATE (20MG) 20 MG TABLET GT SCH ×2 (10:36→18:04)
[2022-03-24] MEDS: PANTOPRAZOLE 40 MG/PACK PACK GT SCH (10:36)
[2022-03-24] MEDS: CLOPIDOGREL BISULFATE 75 MG TABLET GT SCH (10:38)
--- NOTE | 2022-03-24 11:28 | NUR ---
RN NOTES FINISHED HD AT THIS TIME OUTPUT WAS 2000ML. BP 131/65, P-97. ,[id number], R-22. PATIENT AWAKE, CALM AND COOPERATIVE, TOLLERATING ETT SETTING WELL, DAUGHTER NEXT TO THE BED.
[2022-03-24] MEDS: IV NS 0.9% 250 ML IV PRN (13:57)
--- NOTE | 2022-03-24 15:00 | NUR ---
rn notes patient has bilateral arms US shows result patient positive for DVT. Dr Quiñones aware of, continue anticougulant.
[2022-03-24] MEDS: INSULIN REGULAR, HUMAN 100 UNIT/ML 3 ML VIAL SQ PRN ×2 (18:10→23:30)
[2022-03-24] MEDS: NEPRO 1,000 ML BOTTLE GT PRN (18:12)
--- NOTE | 2022-03-24 18:30 | NUR ---
rn notes PM care done, suction, bs-155mg/dl, due medication administered, running Nepro 10ml/hr intact, bedside moitor shows Afib HR 91, no residual, keep hob elevated for aspiration precaution. patient awake, no respiratory distress, endorsed oncoming nurse marielena.
--- NOTE | 2022-03-24 19:11 | NUR ---
ENERGY CONSERVATION DIRECTOR PT NOTED TO BE IN CONTROLLED AFIB; NO PREVIOUS HISTORY OF AFIB NOTED. MEDICAL INTERN NOTIFIED AND EKG ORDERED.
--- NOTE | 2022-03-24 19:45 | NUR ---
WATCH LEADER PT CONVERTED TO NSR ON MONITOR.
[2022-03-24] MEDS: ATORVASTATIN 40 MG TABLET GT SCH (21:14)
[2022-03-24] MEDS: hydrALAZINE HCL IV 20 MG VIAL IV PRN (21:37)
[2022-03-25] VITALS (47 sets, daily range): BP systolic 110–165; BP diastolic 49–75
[2022-03-25] MEDS: ACETYLCYSTEINE 10% SOLN 400 MG/4 ML VIAL NEB SCH ×4 (02:39→23:07)
[2022-03-25] MEDS: IPRATROPIUM NEB FS 0.5 MG/2.5 ML AMPUL.NEB NEB SCH ×6 (02:39→23:07)
[2022-03-25] MEDS: ALBUTEROL HALF STRENGTH 1.25 MG/3 ML VIAL.NEB NEB SCH ×6 (02:39→23:07)
[2022-03-25] MEDS: ERYTHROMYCIN ETHYLSUCCINATE 200 MG/5 ML SUSPENSION GT SCH ×4 (03:21→21:49)
[2022-03-25 05:39] LABS: BASOPHILS # (AUTO) 0.1 K/uL (0.0-0.2); BASOPHILS % (AUTO) 0.6 % (0.0-2.0); EOSINOPHILS % (AUTO) 2.3 % (0.0-6.0); HEMATOCRIT 30 % (39-51); HEMOGLOBIN 9.3 g/dL (13.5-17.5); LYMPHOCYTES # (AUTO) 0.5 K/uL (0.8-4.8); LYMPHOCYTES % (AUTO) 5.3 % (20.0-44.0); MEAN CORPUSCULAR HGB CONC 31 g/dl (31.0-36.0); MEAN CORPUSCULAR VOLUME 83 fL (80-96); MONOCYTES # (AUTO) 1.1 K/uL (0.1-1.30); MONOCYTES % (AUTO) 11.7 % (2.0-12.0); NEUTROPHILS # (AUTO) 7.6 K/uL (1.8-8.9); NEUTROPHILS % (AUTO) 80.1 % (43.0-81.0); PLATELET COUNT (AUTO) 359 K/uL (150-450); RED BLOOD CELL COUNT(AUTO) 3.59 MIL/uL (4.5-6.0); WHITE BLOOD COUNT (AUTO) 9.5 K/uL (4.3-11.0)
[2022-03-25 05:50] LABS: CREATININE 6.1 mg/dL (0.6-1.3); MAGNESIUM 2.7 mg/dL (1.8-2.4); PHOSPHORUS 6.1 mg/dL (2.5-4.9); POTASSIUM 4.5 mmol/L (3.5-5.1)
[2022-03-25] MEDS: BLOOD SUGAR DIAGNOSTIC 1 EACH STRIP IN SCH ×3 (06:03→17:26)
--- NOTE | 2022-03-25 08:00 | NUR ---
RN NOTES PATIENT REMAINING INTUBATED, NO SEDATION. PATIENT RESTLESS, ABLE TO OPEN EYES, NO ACUTE RESPIRATORY DISTRESS, SUCTION, MOUTH CARE DONE. HR-84, SINUS ON BEDSIDE MONITOR. RECHECKED RESIDUAL 10CC, AND PLACEMENT. RUNNING NEPRO 10ML/HR KEEP HOB ELEVATED 35 DEGREE, PATIENT ANURIC, A/V SHUNT INTACT ON KARISSA, INFUSING TKO ON LEFT FEMORAL MIDLINE AREA INTACT. ASSIST TURN AND REPOSTION Q 2 HR, DUE MEDICATION ADMINISTERED. WILL FOLLOW UP.
[2022-03-25] MEDS: PANTOPRAZOLE 40 MG/PACK PACK GT SCH (09:25)
[2022-03-25] MEDS: ISOSORBIDE DINITRATE (20MG) 20 MG TABLET GT SCH ×2 (09:26→17:29)
[2022-03-25] MEDS: GABAPENTIN 100 MG CAPSULE GT SCH (09:26)
[2022-03-25] MEDS: CLOPIDOGREL BISULFATE 75 MG TABLET GT SCH (09:27)
--- NOTE | 2022-03-25 09:39 | NUR ---
rn notes Patient on CPAP mode for weaning from vent, and ABG within 2 hr, per Dr Rg's order . RT aware, and bedside, will follow up.
--- NOTE | 2022-03-25 10:40 | NUR ---
RN NOTES PATIENT FAIL WEANING FROM VENT, PER DR SILVA WILL TRY TOMORROW, NOTIFIED RT, PATIENT BACK TO THE AC ON VENT.
[2022-03-25] MEDS: INSULIN REGULAR, HUMAN 100 UNIT/ML 3 ML VIAL SQ PRN ×2 (12:58→17:31)
[2022-03-25] MEDS: IV NS 0.9% 250 ML IV PRN (13:03)
[2022-03-25] MEDS ORDERED: MAGNESIUM HYDROXIDE 30 ML UDC GT PRN (15:30)
[2022-03-25] MEDS: AMIODARONE HCL 200 MG TABLET GT SCH (15:37)
[2022-03-25] MEDS: NEPRO 1,000 ML BOTTLE GT PRN ×2 (16:10→17:30)
[2022-03-25] MEDS: SEVELAMER CARBONATE 800 MG POWD.PACK GT SCH (17:29)
--- NOTE | 2022-03-25 18:25 | NUR ---
RN NOTES PATIENT PM CARE DONE, SUCTION, DUE MEDICATION ADMINISTERED, VSS, NO ACUTE RESPIRATORY DISTRESS. PATIENT AWAKE, FOLLOW COMMONDS, CALM AND COOPERATIVE, TOLERATING ETT TUBE WELL. ASSIST TURN AND REPOSTIONQ 2 HR. FAMILY NEXT TO THE BED. ENDORSED ONCOMING NURSE AMY.
--- NOTE | 2022-03-25 19:10 | NUR ---
RN OPENING NOTES RECEIVED PATIENT ON BED SEDATED, ORALLY INTUBATED, ON MECHANICAL VENT WITH SETTINGS AC-18, TIDAL VOLUME- 425, FIO2- 35, PEEP- 5, RESPIRATORY EVEN AND UNLABORED, NO SOB NOTED, AFEBRILE. NO S/S OF DISTRESS NOTED. NOTED WITH KEYANNA MID LINE, LEFT FEMORAL MID LINE LINE, FLUSHED WITH NS, NO S/S OF INFILTRATION NOTED. WITH NGT VERIFIED PLACEMENT BY AUSCULTATION WITH 10ML RESIDUAL NOTED UPON ASPIRATION. RUNNING WITH NEPHO @ 35ML/HR. HEAD OF BED KEPT ELEVATED ALL THE TIME. ALL SAFETY MEASURE PROVIDED, BED IN LOWEST POSITION, LOCKED. CALL LIGHT WITH IN REACH
[2022-03-25] MEDS: ATORVASTATIN 40 MG TABLET GT SCH (21:45)
[2022-03-26] VITALS (38 sets, daily range): BP systolic 107–165; BP diastolic 44–68
[2022-03-26] MEDS: BLOOD SUGAR DIAGNOSTIC 1 EACH STRIP IN SCH ×4 (00:12→18:22)
[2022-03-26] MEDS: INSULIN REGULAR, HUMAN 100 UNIT/ML 3 ML VIAL SQ PRN ×3 (00:14→18:25)
[2022-03-26] MEDS: ERYTHROMYCIN ETHYLSUCCINATE 200 MG/5 ML SUSPENSION GT SCH ×4 (04:12→21:31)
[2022-03-26] MEDS: IPRATROPIUM NEB FS 0.5 MG/2.5 ML AMPUL.NEB NEB SCH ×6 (04:24→23:45)
[2022-03-26] MEDS: ALBUTEROL HALF STRENGTH 1.25 MG/3 ML VIAL.NEB NEB SCH ×6 (04:24→23:45)
[2022-03-26 05:05] LABS: BASOPHILS % (AUTO) 0.4 % (0.0-2.0); EOSINOPHILS % (AUTO) 2.8 % (0.0-6.0); HEMATOCRIT 25 % (39-51); HEMOGLOBIN 7.9 g/dL (13.5-17.5); LYMPHOCYTES # (AUTO) 0.5 K/uL (0.8-4.8); LYMPHOCYTES % (AUTO) 4.7 % (20.0-44.0); MEAN CORPUSCULAR HGB CONC 32 g/dl (31.0-36.0); MEAN CORPUSCULAR VOLUME 81 fL (80-96); MONOCYTES # (AUTO) 0.9 K/uL (0.1-1.30); MONOCYTES % (AUTO) 9.5 % (2.0-12.0); NEUTROPHILS # (AUTO) 8.2 K/uL (1.8-8.9); NEUTROPHILS % (AUTO) 82.6 % (43.0-81.0); PLATELET COUNT (AUTO) 340 K/uL (150-450); RED BLOOD CELL COUNT(AUTO) 3.02 MIL/uL (4.5-6.0); WHITE BLOOD COUNT (AUTO) 9.9 K/uL (4.3-11.0)
[2022-03-26 05:07] LABS: CALCIUM, SERUM 8.7 mg/dL (8.5-10.1); POTASSIUM 4.4 mmol/L (3.5-5.1)
[2022-03-26 05:10] LABS: MAGNESIUM 2.8 mg/dL (1.8-2.4); PHOSPHORUS 7.5 mg/dL (2.5-4.9)
[2022-03-26 05:14] LABS: CREATININE 7.7 mg/dL (0.6-1.3)
--- NOTE | 2022-03-26 06:53 | NUR ---
RN NOTES PATIENT REMAIN STABLE THROUGH OUT THE SHIFT, RESPIRATORY EVEN AND UNLABORED, NO SOB NOTED, AFEBRILE. NO S/S OF DISTRESS NOTED. WITH NGT VERIFIED PLACEMENT BY AUSCULTATION WITH 10ML RESIDUAL NOTED UPON ASPIRATION. RUNNING WITH NEPHO @ 35ML/HR. HEAD OF BED KEPT ELEVATED ALL THE TIME. ALL DUE MEDS GIVEN. STILL NOTED WITH SACRAL WOUND, NO S/S OF INFECTION NOTED, NO BLEEDING, DRESSING CHANGED, PROCEDURE TOLERATED WELL. ALL SAFETY MEASURE PROVIDED, BED IN LOWEST POSITION, LOCKED. CALL LIGHT WITH IN REACH
[2022-03-26] MEDS: SEVELAMER CARBONATE 800 MG POWD.PACK GT SCH ×3 (08:00→17:45)
[2022-03-26] MEDS: GABAPENTIN 100 MG CAPSULE GT SCH (08:00)
[2022-03-26] MEDS: CLOPIDOGREL BISULFATE 75 MG TABLET GT SCH (08:00)
[2022-03-26] MEDS: PANTOPRAZOLE 40 MG/PACK PACK GT SCH (08:00)
[2022-03-26] MEDS: ISOSORBIDE DINITRATE (20MG) 20 MG TABLET GT SCH ×2 (08:01→17:00)
[2022-03-26] MEDS: ACETYLCYSTEINE 10% SOLN 400 MG/4 ML VIAL NEB SCH ×3 (08:02→23:45)
[2022-03-26] MEDS: DOCUSATE SODIUM LIQ 100 MG/10 ML UDC NG SCH ×2 (08:33→17:45)
--- NOTE | 2022-03-26 09:34 | NUR ---
CPAP Trial initiated @ 0830, Cont to tolerate CPAP well after 1 hr. Cont to mon and implement POC
[2022-03-26] MEDS ORDERED: ALBUMIN 25% 0 ML IV ONE (10:25)
[2022-03-26 10:31] LABS: BAND % (MANUAL) 1 % (0.0-5.0); EOSINOPHILS % (MANUAL) 2 % (0-4); LYMPHOCYTES % (MANUAL) 5 % (16-48); MONOCYTES % (MANUAL) 10 % (0-11.0); NEUTROPHILS % (MANUAL) 82 (42-76)
[2022-03-26 14:46] LABS: ABG BASE EXCESS 1.2 mmol/L; ABG OXYGEN SATURATION 96.9 % (92.0-98.5); ABG PCO2 44.4 mmHg (35.0-45.0); ABG PH 7.391 (7.350-7.450); ABG PO2 106.2 mmHg (75.0-100.0); AaDO2 55.5 mmHg; COHb 0.7 % (0.5-1.5); MetHb 0.3 % (0.0-1.5); O2Hb 95.9 % (94.0-97.0); SITE, ABG Right Radial
[2022-03-26] MEDS: NEPRO 1,000 ML BOTTLE GT PRN (15:30)
[2022-03-26] MEDS: IV NS 0.9% 250 ML IV PRN (15:31)
--- NOTE | 2022-03-26 16:37 | NUR ---
RT PATIENT REMAINS ORALLY INTUBATED ON [facility] V[facility] ON CPAP MODE KRYSTLE WELL. WILL REMAIN ON CPAP TOLERATED. ALARMS SET AND AUDIBLE. AMBU BAG AT HOB. Addendum: 03/26/22 at 1638 by RUSS SOLORIO RT Amended: Links added.
--- NOTE | 2022-03-26 19:10 | NUR ---
FIRE OBSERVER CLOSING NOTE: RECEIVED PT. AT 1218 FROM FIRE OBSERVER EVENS. REPORT GIVEN AT BEDSIDE. PT. REMAINS IN BED, INTUBATED. ALERT TO SELF, ABLE TO UNDERSTAND SIMPLE COMMANDS AND ANSWER YES/NO QUESTIONS BY NODDING AND SHAKING HEAD. OPENS EYES WITH SPEECH AND TACTILE STIMULI. NO COMPLAINTS OF PAIN/DISCOMFORT THROUGHOUT SHIFT. ETT - 11/02; CPAP MODE; FIO2 - 35%; PEEP - 5. NO S/S OF RESPIRATORY DISTRESS AT THIS TIME. SOFTWARE SECURITY CONSULTANT READS NSR THROUGHOUT SHIFT WITH HR OF 87 BPM AT THIS TIME. WOUND TREATMENT DONE ORDERED. PT. STILL HAS NGT IN THE L NARE AT 65CM, WITH NEPRO RUNNING AT 35 ML/HR, NO GASTRIC RESIDUAL NOTED AT THIS TIME. TOLERATING FEEDING WELL. NO BM THIS SHIFT. IV ACCESS ON KEYANNA MIDLINE, PATENT AND SALINE LOCKED; L FEMORAL MIDLINE WITH NS RUNNING AT TKO. IV SITE DRESSINGS C/D/I WITH NO S/S OF INFILTRATION. PT. HAS KARISSA A/V SHUNT, THRILL AND BRUIT PRESENT. PT. STILL ON SOFT BILATERAL WRIST RESTRAINTS, PALPABLE PULSES NOTED AND CAP REFILL < 3 SECS ON ALL EXTREMITIES. SAFETY MEASURES MAINTAINED: BED IN LOWEST AND LOCKED POSITION, HOB ELEVATED AT 30 DEGREES, BED ALARM ON, CALL LIGHT WITHIN REACH, SIDE RAILS UP X2. TURNED AND REPOSITIONED IN BED AT LEAST Q2H. DAUGHTER MEÑO AT BEDSIDE. ENDORSED CONTINUITY OF CARE TO BEHAVIORAL MODIFICATION ASSISTANT RN [place].
--- NOTE | 2022-03-26 19:15 | NUR ---
RN OPENING NOTES RECEIVED PATIENT ON BED, ORALLY INTUBATED, ON MECHANICAL VENT ON CPAP FIO2- 35, PEEP- 5 PS- 12, RESPIRATORY EVEN AND UNLABORED, NO SOB NOTED, AFEBRILE. NO S/S OF DISTRESS NOTED. NOTED WITH KEYANNA MID LINE, LEFT FEMORAL MID LINE LINE, FLUSHED WITH NS, NO S/S OF INFILTRATION NOTED. WITH NGT VERIFIED PLACEMENT BY AUSCULTATION , NO RESIDUAL NOTED UPON ASPIRATION. RUNNING WITH NEPHO @ 35ML/HR. HEAD OF BED KEPT ELEVATED ALL THE TIME. ALL SAFETY MEASURE PROVIDED, BED IN LOWEST POSITION, LOCKED. CALL LIGHT WITH IN REACH
[2022-03-26] MEDS: ATORVASTATIN 40 MG TABLET GT SCH (21:32)
[2022-03-27] VITALS (49 sets, daily range): BP systolic 95–168; BP diastolic 41–104
[2022-03-27] MEDS: INSULIN REGULAR, HUMAN 100 UNIT/ML 3 ML VIAL SQ PRN ×4 (00:51→18:16)
[2022-03-27] MEDS: BLOOD SUGAR DIAGNOSTIC 1 EACH STRIP IN SCH ×4 (00:52→18:25)
[2022-03-27] MEDS: ERYTHROMYCIN ETHYLSUCCINATE 200 MG/5 ML SUSPENSION GT SCH ×4 (03:11→21:38)
[2022-03-27] MEDS: ALBUTEROL HALF STRENGTH 1.25 MG/3 ML VIAL.NEB NEB SCH ×6 (04:02→23:56)
[2022-03-27] MEDS: IPRATROPIUM NEB FS 0.5 MG/2.5 ML AMPUL.NEB NEB SCH ×6 (04:02→23:56)
[2022-03-27 05:31] LABS: BASOPHILS % (AUTO) 0.1 % (0.0-2.0); EOSINOPHILS % (AUTO) 4.5 % (0.0-6.0); HEMATOCRIT 27 % (39-51); HEMOGLOBIN 8.4 g/dL (13.5-17.5); LYMPHOCYTES # (AUTO) 3.3 K/uL (0.8-4.8); LYMPHOCYTES % (AUTO) 26.6 % (20.0-44.0); MEAN CORPUSCULAR HGB CONC 32 g/dl (31.0-36.0); MEAN CORPUSCULAR VOLUME 82 fL (80-96); MONOCYTES # (AUTO) 0.3 K/uL (0.1-1.30); MONOCYTES % (AUTO) 2.3 % (2.0-12.0); NEUTROPHILS # (AUTO) 8.3 K/uL (1.8-8.9); NEUTROPHILS % (AUTO) 66.5 % (43.0-81.0); PLATELET COUNT (AUTO) 378 K/uL (150-450); RED BLOOD CELL COUNT(AUTO) 3.23 MIL/uL (4.5-6.0); WHITE BLOOD COUNT (AUTO) 12.5 K/uL (4.3-11.0)
[2022-03-27 05:43] LABS: CALCIUM, SERUM 8.9 mg/dL (8.5-10.1); CREATININE 6.3 mg/dL (0.6-1.3); MAGNESIUM 2.7 mg/dL (1.8-2.4); PHOSPHORUS 5.3 mg/dL (2.5-4.9); POTASSIUM 3.9 mmol/L (3.5-5.1)
[2022-03-27] MEDS: ACETYLCYSTEINE 10% SOLN 400 MG/4 ML VIAL NEB SCH ×3 (07:27→23:56)
[2022-03-27] MEDS: SEVELAMER CARBONATE 800 MG POWD.PACK GT SCH ×3 (08:49→18:29)
[2022-03-27] MEDS: CLOPIDOGREL BISULFATE 75 MG TABLET GT SCH (08:51)
[2022-03-27] MEDS: PANTOPRAZOLE 40 MG/PACK PACK GT SCH (08:52)
[2022-03-27] MEDS: DOCUSATE SODIUM LIQ 100 MG/10 ML UDC NG SCH ×2 (08:52→18:28)
[2022-03-27] MEDS: GABAPENTIN 100 MG CAPSULE GT SCH (08:52)
[2022-03-27] MEDS: ISOSORBIDE DINITRATE (20MG) 20 MG TABLET GT SCH ×2 (08:54→18:29)
[2022-03-27] MEDS ORDERED: CEFTRIAXONE 1 G in IV D5W 50 ML IV SCH (10:00)
--- NOTE | 2022-03-27 11:10 | NUR ---
JANAY WAS NOTIFIED OF THE PROCALCITONIN CRITICAL 13.12
--- NOTE | 2022-03-27 11:45 | NUR ---
MEGHANN-JUAN F SEEN PT., NO ORDER MADE
[2022-03-27] MEDS ORDERED: GENTAMICIN 120 MG in IV D5W 100 ML IV ONE (13:00)
[2022-03-27] MEDS ORDERED: VANCOMYCIN 1 GM in IV D5W 250 ML IV ONE (14:00)
[2022-03-27] MEDS: IV NS 0.9% 250 ML IV PRN (14:41)
[2022-03-27] MEDS: NEPRO 1,000 ML BOTTLE GT PRN (15:49)
--- NOTE | 2022-03-27 19:10 | NUR ---
RN OPENING NOTES RECEIVED PATIENT ON BED, ORALLY INTUBATED, ON MECHANICAL VENT ON AC- 18, TIDAL VOLUME- 475 FIO2- 35, PEEP- 5 , RESPIRATORY EVEN AND UNLABORED, NO SOB NOTED, AFEBRILE. NO S/S OF DISTRESS NOTED. NOTED WITH KEYANNA MID LINE, LEFT FEMORAL MID LINE LINE, FLUSHED WITH NS, NO S/S OF INFILTRATION NOTED. WITH NGT VERIFIED PLACEMENT BY AUSCULTATION , NO RESIDUAL NOTED UPON ASPIRATION. RUNNING WITH NEPHO @ 35ML/HR. HEAD OF BED KEPT ELEVATED ALL THE TIME. ALL SAFETY MEASURE PROVIDED, BED IN LOWEST POSITION, LOCKED. CALL LIGHT WITH IN REACH
--- NOTE | 2022-03-27 21:09 | NUR ---
RECEIVED PT INTUBATED ON VENT. PT IS AWAKE NO RESP DISTRESS. SX'D MOD AMT OF THICK YELLOW SECRETIONS. VENT ALARMS SET AND AUDIBLE. AMBU BAG AT BEDSIDE. CONTINUE TO MONITOR. Addendum: 03/27/22 at 2110 by ISIS WALLACE RT Amended: Links added.
[2022-03-27] MEDS: ATORVASTATIN 40 MG TABLET GT SCH (21:37)
[2022-03-28] VITALS (53 sets, daily range): BP systolic 95–179; BP diastolic 40–94
[2022-03-28] MEDS: BLOOD SUGAR DIAGNOSTIC 1 EACH STRIP IN SCH ×4 (00:24→17:21)
[2022-03-28] MEDS: INSULIN REGULAR, HUMAN 100 UNIT/ML 3 ML VIAL SQ PRN ×4 (00:27→17:22)
[2022-03-28] MEDS: ERYTHROMYCIN ETHYLSUCCINATE 200 MG/5 ML SUSPENSION GT SCH ×4 (03:17→21:04)
[2022-03-28] MEDS: IPRATROPIUM NEB FS 0.5 MG/2.5 ML AMPUL.NEB NEB SCH ×6 (03:51→23:34)
[2022-03-28] MEDS: ALBUTEROL HALF STRENGTH 1.25 MG/3 ML VIAL.NEB NEB SCH ×6 (03:51→23:34)
[2022-03-28 04:51] LABS: BASOPHILS # (AUTO) 0.1 K/uL (0.0-0.2); BASOPHILS % (AUTO) 0.7 % (0.0-2.0); EOSINOPHILS % (AUTO) 1.4 % (0.0-6.0); HEMATOCRIT 24 % (39-51); HEMOGLOBIN 7.7 g/dL (13.5-17.5); LYMPHOCYTES # (AUTO) 0.7 K/uL (0.8-4.8); LYMPHOCYTES % (AUTO) 5.9 % (20.0-44.0); MEAN CORPUSCULAR HGB CONC 32 g/dl (31.0-36.0); MEAN CORPUSCULAR VOLUME 81 fL (80-96); MONOCYTES # (AUTO) 1.2 K/uL (0.1-1.30); MONOCYTES % (AUTO) 9.9 % (2.0-12.0); NEUTROPHILS % (AUTO) 82.1 % (43.0-81.0); PLATELET COUNT (AUTO) 368 K/uL (150-450); WHITE BLOOD COUNT (AUTO) 12.3 K/uL (4.3-11.0)
[2022-03-28 05:00] LABS: CALCIUM, SERUM 8.7 mg/dL (8.5-10.1); MAGNESIUM 2.8 mg/dL (1.8-2.4); PHOSPHORUS 5.1 mg/dL (2.5-4.9); POTASSIUM 4.3 mmol/L (3.5-5.1)
[2022-03-28 05:03] LABS: GENTAMICIN,RANDOM 4.5 ug/ml (4.0-8.0)
[2022-03-28 05:06] LABS: CREATININE 8.5 mg/dL (0.6-1.3)
--- NOTE | 2022-03-28 07:00 | NUR ---
RN NOTES RECEIVED PATIENT ON BED, ORALLY INTUBATED, ALERT/ DOES NOT FOLLOW COMMAND, TOLERATING VENT SETTING WELL, O2 SAT WNL, NO DISTRESS NOTED WITH KEYANNA MID LINE, LEFT FEMORAL MID LINE LINE, FLUSHED WITH NS, NO S/S OF INFILTRATION NOTED. WITH NGT VERIFIED PLACEMENT BY AUSCULTATION , NO RESIDUAL NOTED UPON ASPIRATION. RUNNING WITH NEPHO @ 35ML/HR. HEAD OF BED KEPT ELEVATED ALL THE TIME. ALL SAFETY MEASURE PROVIDED, BED IN LOWEST POSITION, LOCKED. CALL LIGHT WITH IN REACH, WILL CONTINUE TO MONITOR
--- NOTE | 2022-03-28 07:16 | NUR ---
WOUND CARE FOLLOWUP: PT SEEN FOR RE-EVALUATION OF SACRAL DEEP TISSUE INJURY IN EVOLUTION. RECOMMENDATIONS MADE FOR SKIN PROTECTION AND DISCUSSED WITH NURSING STAFF. CONCUR WITH CURRENT TREATMENT PLAN. PT FOLLOWED BY SURGICAL TEAM. MD IN AGREEMENT WITH PLAN OF CARE. PT IS ON LOW AIRLOSS MATTRESS.
[2022-03-28] MEDS: ACETYLCYSTEINE 10% SOLN 400 MG/4 ML VIAL NEB SCH ×3 (07:51→23:34)
[2022-03-28] MEDS: GABAPENTIN 100 MG CAPSULE GT SCH (08:32)
[2022-03-28] MEDS: CLOPIDOGREL BISULFATE 75 MG TABLET GT SCH (08:32)
[2022-03-28] MEDS: SEVELAMER CARBONATE 800 MG POWD.PACK GT SCH ×3 (08:32→17:11)
[2022-03-28] MEDS: PANTOPRAZOLE 40 MG/PACK PACK GT SCH (08:32)
[2022-03-28] MEDS: DOCUSATE SODIUM LIQ 100 MG/10 ML UDC NG SCH ×2 (08:33→17:11)
[2022-03-28] MEDS: ALBUMIN 25% 25 GM in PREMIX 1 EA IV PRN (08:38)
[2022-03-28] MEDS: EPOETIN ALFA (10,000 UNIT) 10,000 UNIT/ML VIAL IV ONE ×2 (09:00→12:03)
[2022-03-28] MEDS: ISOSORBIDE DINITRATE (20MG) 20 MG TABLET GT SCH ×2 (09:00→17:11)
--- NOTE | 2022-03-28 09:00 | NUR ---
RN NOTES PT RECEIVING , HD AT THIS TIME, BP MEDS HELD
[2022-03-28] MEDS ORDERED: EPOETIN ALFA (10,000 UNIT) 10,000 UNIT/ML VIAL IV ONE (11:00)
[2022-03-28] MEDS ORDERED: EPOETIN ALFA-EPBX 10,000 UNIT/ML VIAL IV ONE (12:00)
--- NOTE | 2022-03-28 12:00 | NUR ---
RN NOTES FREQUENT SUCTIONING DONE .PT CONGESTED, VSS STABLE , CONTINUE TO MONITOR .
[2022-03-28] MEDS: GENTAMICIN 80 MG in IV D5W 50 ML IV PRN (13:43)
[2022-03-28] MEDS: AMIODARONE HCL 200 MG TABLET GT SCH (17:14)
--- NOTE | 2022-03-28 18:36 | NUR ---
RN NOTES PT REMAINS ON COOL AEROSOL AT 60% FIO2, O2 SAT WNL, ON TELE SR-ST, TOLERAING TF AT 45 CC /HR WELL, NO RESIDUAL NOTED, IV SITE CDI, SR UP x3, CALL LIGHT WITHIN EASY REACH, WILL ENDORSE TO LEAD BUSINESS SYSTEMS ANALYST NURSE FOR CONTINUITY OF CARE .
--- NOTE | 2022-03-28 19:10 | NUR ---
I WAS CALLED TO CHECK ON THE PT FOR LOW O2 SATURATION 84%. PT ON COOL AEROSOL 10L, 98% FIO2. SX'D MODERATE AMT OF THICK WHITE SECRETIONS SATURATION WENT UP TO 92% AND WENT BACK DOWN TO 86% AFTER FEW MINUTES. PT PLACED BACK ON VENT AC MODE. PEDRO BLANCO. WILL CONTINUE TO MONITOR. Addendum: 03/28/22 at 1916 by ISIS WALLACE RT Amended: Links added.
[2022-03-28] MEDS: NEPRO 1,000 ML BOTTLE GT PRN (19:37)
[2022-03-28] MEDS: IV NS 0.9% 250 ML IV PRN (19:38)
[2022-03-28] MEDS: ATORVASTATIN 40 MG TABLET GT SCH (21:04)
[2022-03-29] VITALS (37 sets, daily range): BP systolic 92–144; BP diastolic 40–75
[2022-03-29] MEDS: BLOOD SUGAR DIAGNOSTIC 1 EACH STRIP IN SCH ×4 (00:16→17:12)
[2022-03-29] MEDS: INSULIN REGULAR, HUMAN 100 UNIT/ML 3 ML VIAL SQ PRN ×4 (00:17→17:16)
[2022-03-29] MEDS: ERYTHROMYCIN ETHYLSUCCINATE 200 MG/5 ML SUSPENSION GT SCH ×4 (03:31→21:03)
[2022-03-29] MEDS: ALBUTEROL HALF STRENGTH 1.25 MG/3 ML VIAL.NEB NEB SCH ×6 (03:40→23:35)
[2022-03-29] MEDS: IPRATROPIUM NEB FS 0.5 MG/2.5 ML AMPUL.NEB NEB SCH ×6 (03:40→23:35)
[2022-03-29 04:56] LABS: BASOPHILS # (AUTO) 0.1 K/uL (0.0-0.2); BASOPHILS % (AUTO) 0.8 % (0.0-2.0); EOSINOPHILS % (AUTO) 1.7 % (0.0-6.0); HEMATOCRIT 25 % (39-51); HEMOGLOBIN 8.1 g/dL (13.5-17.5); LYMPHOCYTES # (AUTO) 0.8 K/uL (0.8-4.8); LYMPHOCYTES % (AUTO) 6.5 % (20.0-44.0); MEAN CORPUSCULAR HGB CONC 32 g/dl (31.0-36.0); MEAN CORPUSCULAR VOLUME 81 fL (80-96); MONOCYTES # (AUTO) 1.3 K/uL (0.1-1.30); NEUTROPHILS # (AUTO) 9.3 K/uL (1.8-8.9); PLATELET COUNT (AUTO) 358 K/uL (150-450); RED BLOOD CELL COUNT(AUTO) 3.12 MIL/uL (4.5-6.0); WHITE BLOOD COUNT (AUTO) 11.6 K/uL (4.3-11.0)
[2022-03-29 05:10] LABS: CALCIUM, SERUM 8.8 mg/dL (8.5-10.1); MAGNESIUM 2.7 mg/dL (1.8-2.4); PHOSPHORUS 4.5 mg/dL (2.5-4.9); POTASSIUM 4.3 mmol/L (3.5-5.1)
--- NOTE | 2022-03-29 07:05 | NUR ---
RN OPENING NOTES RECEIVED REPORT FROM [facility] PEDRO GNA. PATIENT REMAINS IN BED, INTUBATED ON MECHANICAL VENTILATOR, TOLERATING SETTINGS WELL, NO SEDATION ORDERED. PATIENT ALERT AND FOLLOWS COMMANDS. WIGGLES IN BED AND KICKS FEET. READING SINUS RHYTHM ON THE MONITOR. BILATERAL WRIST RESTRAINTS NOTED, DISTAL CIRCULATION IS WITHIN NORMAL LIMITS. IV ACCESS ON RIGHT UPPER ARM MIDLINE. DIALYSIS ACCESS ON LEFT UPPER ARM AV SHUNT. NASO GASTRIC TUBE IN PLACE RUNNING FEEDING ORDERED. SAFETY MEASURES IMPLEMENTED.WILL CONTINUE PLAN OF CARE AND ANTICIPATE NEEDS.
[2022-03-29] MEDS: ACETYLCYSTEINE 10% SOLN 400 MG/4 ML VIAL NEB SCH ×3 (07:35→23:35)
[2022-03-29] MEDS: PANTOPRAZOLE 40 MG/PACK PACK GT SCH (08:17)
[2022-03-29] MEDS: SEVELAMER CARBONATE 800 MG POWD.PACK GT SCH ×3 (08:17→17:11)
[2022-03-29] MEDS: GABAPENTIN 100 MG CAPSULE GT SCH (08:18)
[2022-03-29] MEDS: CLOPIDOGREL BISULFATE 75 MG TABLET GT SCH (08:18)
[2022-03-29] MEDS: DOCUSATE SODIUM LIQ 100 MG/10 ML UDC NG SCH ×2 (08:18→16:52)
[2022-03-29] MEDS: ISOSORBIDE DINITRATE (20MG) 20 MG TABLET GT SCH ×2 (08:19→16:52)
[2022-03-29 12:09] LABS: ABG BASE EXCESS -2.4 mmol/L; ABG OXYGEN SATURATION 94.9 % (92.0-98.5); ABG PCO2 33.9 mmHg (35.0-45.0); ABG PH 7.423 (7.350-7.450); ABG PO2 84.8 mmHg (75.0-100.0); AaDO2 161.4 mmHg; MetHb 0.3 % (0.0-1.5); O2Hb 92.7 % (94.0-97.0); SITE, ABG Right Radial; VENT MODE, BG COOL AEROSOL 40%
[2022-03-29] MEDS: IV NS 0.9% 250 ML IV PRN (19:00)
--- NOTE | 2022-03-29 19:15 | NUR ---
HANDOFF REPORT GIVEN TO ELVIA VASQUEZ FOR CONTINUATION OF CARE.
--- NOTE | 2022-03-29 20:25 | NUR ---
RCVD PT ON COOL AEROSOL 40% 10L . PT IS AWAKE AND ALERT . BREATHING TX GIVEN PER MD'S ORDER. NO ADVERSE REACTION NOTED. WILL CONTINUE TO MONITOR T/O SHIFT.
[2022-03-29] MEDS: ATORVASTATIN 40 MG TABLET GT SCH (21:03)
[2022-03-30] VITALS (38 sets, daily range): BP systolic 102–155; BP diastolic 42–86
[2022-03-30] MEDS: BLOOD SUGAR DIAGNOSTIC 1 EACH STRIP IN SCH ×5 (00:45→23:58)
[2022-03-30] MEDS: INSULIN REGULAR, HUMAN 100 UNIT/ML 3 ML VIAL SQ PRN ×4 (00:49→17:34)
[2022-03-30] MEDS: ERYTHROMYCIN ETHYLSUCCINATE 200 MG/5 ML SUSPENSION GT SCH ×4 (03:28→21:00)
[2022-03-30] MEDS: IPRATROPIUM NEB FS 0.5 MG/2.5 ML AMPUL.NEB NEB SCH ×6 (03:49→23:27)
[2022-03-30] MEDS: ALBUTEROL HALF STRENGTH 1.25 MG/3 ML VIAL.NEB NEB SCH ×6 (03:49→23:27)
[2022-03-30 05:24] LABS: BASOPHILS # (AUTO) 0.1 K/uL (0.0-0.2); BASOPHILS % (AUTO) 0.8 % (0.0-2.0); EOSINOPHILS % (AUTO) 1.5 % (0.0-6.0); HEMATOCRIT 23 % (39-51); HEMOGLOBIN 7.4 g/dL (13.5-17.5); LYMPHOCYTES # (AUTO) 0.6 K/uL (0.8-4.8); LYMPHOCYTES % (AUTO) 4.3 % (20.0-44.0); MEAN CORPUSCULAR HGB CONC 32 g/dl (31.0-36.0); MEAN CORPUSCULAR VOLUME 80 fL (80-96); MONOCYTES # (AUTO) 1.1 K/uL (0.1-1.30); MONOCYTES % (AUTO) 8.5 % (2.0-12.0); NEUTROPHILS # (AUTO) 10.9 K/uL (1.8-8.9); NEUTROPHILS % (AUTO) 84.9 % (43.0-81.0); PLATELET COUNT (AUTO) 377 K/uL (150-450); RED BLOOD CELL COUNT(AUTO) 2.88 MIL/uL (4.5-6.0); WHITE BLOOD COUNT (AUTO) 12.8 K/uL (4.3-11.0)
[2022-03-30 06:25] LABS: CALCIUM, SERUM 8.8 mg/dL (8.5-10.1); POTASSIUM 4.7 mmol/L (3.5-5.1)
[2022-03-30 06:26] LABS: CREATININE 9.1 mg/dL (0.6-1.3); PHOSPHORUS 6.3 mg/dL (2.5-4.9)
--- NOTE | 2022-03-30 07:20 | NUR ---
ICU/RN PT RECEIVED IN BED, AWAKE, FOLLOWING COMMANDS. PT INTUBATED WITH COOL AEROSOL SAT 93% ON BEDSIDE MONITOR. NGT IN PLACE RUNNING NEPRO AT 45ML/HR. RIGHT UA MIDLINE AND LEFT UA AV SHUNT IN PLACE. BED LOCKED AND IN LOWEST POSITION, CALL LIGHT WITHIN REACH, 3 SIDE RAILS UP. RESTRAINS REMOVED, PT AWAKE AND FOLLOWING COMMANDS.
[2022-03-30] MEDS: CLOPIDOGREL BISULFATE 75 MG TABLET GT SCH (08:03)
[2022-03-30] MEDS: GABAPENTIN 100 MG CAPSULE GT SCH (08:03)
[2022-03-30] MEDS: SEVELAMER CARBONATE 800 MG POWD.PACK GT SCH ×3 (08:03→17:33)
[2022-03-30] MEDS: DOCUSATE SODIUM LIQ 100 MG/10 ML UDC NG SCH ×2 (08:03→16:24)
[2022-03-30] MEDS: PANTOPRAZOLE 40 MG/PACK PACK GT SCH (08:03)
[2022-03-30] MEDS: ISOSORBIDE DINITRATE (20MG) 20 MG TABLET GT SCH ×2 (08:04→16:25)
[2022-03-30] MEDS: ACETYLCYSTEINE 10% SOLN 400 MG/4 ML VIAL NEB SCH ×3 (08:05→23:27)
--- NOTE | 2022-03-30 09:10 | NUR ---
ICU/RN DAUGHTER MEÑO UPDATED ON PT'S CONDITION.
[2022-03-30] MEDS: MIDODRINE HCL (5MG) 5 MG TABLET PO SCH ×2 (12:14→16:25)
--- NOTE | 2022-03-30 15:10 | NUR ---
ICU/RN HD COMPLETED, 3,000ML REMOVED. BP STABLE 131/61. PER PHARMACY, OK TO GIVE GENTAMICIN IV WITH 4.3 LEVEL PRE HD. OK TO GIVE VANCO WELL.
[2022-03-30] MEDS: GENTAMICIN 80 MG in IV D5W 50 ML IV PRN (15:13)
[2022-03-30] MEDS: IV NS 0.9% 250 ML IV PRN (16:25)
[2022-03-30] MEDS: VANCOMYCIN 500 MG in IV D5W 100 ML IV PRN (17:18)
[2022-03-30] MEDS: ATORVASTATIN 40 MG TABLET GT SCH (21:19)
--- NOTE | 2022-03-30 21:32 | NUR ---
pt became very restless and o2 began to drop. received order from TALENT MANAGEMENT SPECIALIST for Ativan 1mg q2 hrs.
[2022-03-30] MEDS: LORAZEPAM INJ 2 MG/ML VIAL IV PRN ×2 (21:40→23:52)
[2022-03-31] VITALS (34 sets, daily range): BP systolic 88–153; BP diastolic 35–83
[2022-03-31] MEDS: ERYTHROMYCIN ETHYLSUCCINATE 200 MG/5 ML SUSPENSION GT SCH ×4 (03:00→21:13)
[2022-03-31] MEDS: LORAZEPAM INJ 2 MG/ML VIAL IV PRN ×4 (03:31→19:44)
[2022-03-31] MEDS: IPRATROPIUM NEB FS 0.5 MG/2.5 ML AMPUL.NEB NEB SCH ×6 (04:14→23:35)
[2022-03-31] MEDS: ALBUTEROL HALF STRENGTH 1.25 MG/3 ML VIAL.NEB NEB SCH ×6 (04:14→23:35)
--- NOTE | 2022-03-31 06:09 | NUR ---
Ativan had good effect and pt slept through the night. restraints were applied du eot pt constantly touching et tube.
[2022-03-31] MEDS: BLOOD SUGAR DIAGNOSTIC 1 EACH STRIP IN SCH ×3 (06:20→17:42)
[2022-03-31] MEDS: NEPRO 1,000 ML BOTTLE GT PRN ×2 (07:50→22:55)
[2022-03-31] MEDS: ACETYLCYSTEINE 10% SOLN 400 MG/4 ML VIAL NEB SCH ×3 (07:54→23:35)
[2022-03-31 08:15] LABS: BASOPHILS # (AUTO) 0.1 K/uL (0.0-0.2); BASOPHILS % (AUTO) 0.6 % (0.0-2.0); EOSINOPHILS % (AUTO) 1.3 % (0.0-6.0); HEMATOCRIT 26 % (39-51); LYMPHOCYTES # (AUTO) 1.1 K/uL (0.8-4.8); LYMPHOCYTES % (AUTO) 7.4 % (20.0-44.0); MEAN CORPUSCULAR HGB CONC 31 g/dl (31.0-36.0); MEAN CORPUSCULAR VOLUME 83 fL (80-96); MONOCYTES # (AUTO) 1.3 K/uL (0.1-1.30); MONOCYTES % (AUTO) 8.2 % (2.0-12.0); NEUTROPHILS # (AUTO) 12.6 K/uL (1.8-8.9); NEUTROPHILS % (AUTO) 82.5 % (43.0-81.0); PLATELET COUNT (AUTO) 470 K/uL (150-450); RED BLOOD CELL COUNT(AUTO) 3.13 MIL/uL (4.5-6.0); WHITE BLOOD COUNT (AUTO) 15.3 K/uL (4.3-11.0)
[2022-03-31] MEDS: SEVELAMER CARBONATE 800 MG POWD.PACK GT SCH ×3 (08:27→17:40)
[2022-03-31] MEDS: GABAPENTIN 100 MG CAPSULE GT SCH (08:27)
[2022-03-31] MEDS: DOCUSATE SODIUM LIQ 100 MG/10 ML UDC NG SCH ×2 (08:27→17:40)
[2022-03-31] MEDS: PANTOPRAZOLE 40 MG/PACK PACK GT SCH (08:28)
[2022-03-31] MEDS: CLOPIDOGREL BISULFATE 75 MG TABLET GT SCH (08:28)
[2022-03-31] MEDS: ISOSORBIDE DINITRATE (20MG) 20 MG TABLET GT SCH ×2 (08:32→16:04)
[2022-03-31] MEDS: MIDODRINE HCL (5MG) 5 MG TABLET PO SCH ×3 (08:35→17:00)
[2022-03-31 08:42] LABS: CREATININE 6.6 mg/dL (0.6-1.3); MAGNESIUM 2.9 mg/dL (1.8-2.4); PHOSPHORUS 5.7 mg/dL (2.5-4.9)
--- NOTE | 2022-03-31 09:45 | NUR ---
MÑEO-DAUGHTER CALLED FOR UPDATE AND WAS MADE AWARE THAT PT. IS ON RESTRAINT SOFT WRIST BOTH WRISTS AND PER MEÑO "THAT'S OKAY."
--- NOTE | 2022-03-31 10:05 | NUR ---
HD SESSION STARTED BY MARSHA VASQUEZ
[2022-03-31] MEDS: ALBUMIN 25% 25 GM in PREMIX 1 EA IV PRN (10:42)
[2022-03-31] MEDS: INSULIN REGULAR, HUMAN 100 UNIT/ML 3 ML VIAL SQ PRN ×2 (12:09→17:44)
[2022-03-31] MEDS: VANCOMYCIN 500 MG in IV D5W 100 ML IV PRN (14:29)
[2022-03-31] MEDS: GENTAMICIN 80 MG in IV D5W 50 ML IV PRN (16:00)
[2022-03-31] MEDS: ATORVASTATIN 40 MG TABLET GT SCH (21:13)
--- NOTE | 2022-03-31 22:10 | NUR ---
RT NOTE SPUTUM OBTAINED.
[2022-04-01] VITALS (36 sets, daily range): BP systolic 102–139; BP diastolic 42–78
[2022-04-01] MEDS: BLOOD SUGAR DIAGNOSTIC 1 EACH STRIP IN SCH ×5 (00:01→23:57)
[2022-04-01] MEDS: ERYTHROMYCIN ETHYLSUCCINATE 200 MG/5 ML SUSPENSION GT SCH ×4 (02:05→21:14)
[2022-04-01] MEDS: ALBUTEROL HALF STRENGTH 1.25 MG/3 ML VIAL.NEB NEB SCH ×6 (03:30→23:11)
[2022-04-01] MEDS: IPRATROPIUM NEB FS 0.5 MG/2.5 ML AMPUL.NEB NEB SCH ×6 (03:30→23:10)
[2022-04-01 04:52] LABS: BASOPHILS # (AUTO) 0.1 K/uL (0.0-0.2); BASOPHILS % (AUTO) 0.8 % (0.0-2.0); HEMATOCRIT 24 % (39-51); HEMOGLOBIN 7.6 g/dL (13.5-17.5); LYMPHOCYTES # (AUTO) 0.5 K/uL (0.8-4.8); LYMPHOCYTES % (AUTO) 3.3 % (20.0-44.0); MEAN CORPUSCULAR HGB CONC 32 g/dl (31.0-36.0); MEAN CORPUSCULAR VOLUME 81 fL (80-96); MONOCYTES # (AUTO) 1.3 K/uL (0.1-1.30); NEUTROPHILS # (AUTO) 12.7 K/uL (1.8-8.9); NEUTROPHILS % (AUTO) 85.9 % (43.0-81.0); PLATELET COUNT (AUTO) 423 K/uL (150-450); RED BLOOD CELL COUNT(AUTO) 2.95 MIL/uL (4.5-6.0); WHITE BLOOD COUNT (AUTO) 14.8 K/uL (4.3-11.0)
[2022-04-01] MEDS: INSULIN REGULAR, HUMAN 100 UNIT/ML 3 ML VIAL SQ PRN ×4 (05:13→23:55)
[2022-04-01 05:16] LABS: CALCIUM, SERUM 8.9 mg/dL (8.5-10.1); CREATININE 4.7 mg/dL (0.6-1.3); MAGNESIUM 2.7 mg/dL (1.8-2.4); PHOSPHORUS 3.3 mg/dL (2.5-4.9); POTASSIUM 4.4 mmol/L (3.5-5.1)
[2022-04-01] MEDS: CLOPIDOGREL BISULFATE 75 MG TABLET GT SCH (08:13)
[2022-04-01] MEDS: GABAPENTIN 100 MG CAPSULE GT SCH (08:14)
[2022-04-01] MEDS: ISOSORBIDE DINITRATE (20MG) 20 MG TABLET GT SCH ×2 (08:14→17:58)
[2022-04-01] MEDS: MIDODRINE HCL (5MG) 5 MG TABLET PO SCH ×3 (08:15→17:58)
[2022-04-01] MEDS: PANTOPRAZOLE 40 MG/PACK PACK GT SCH (08:15)
[2022-04-01] MEDS: DOCUSATE SODIUM LIQ 100 MG/10 ML UDC NG SCH ×2 (08:15→17:58)
[2022-04-01] MEDS: SEVELAMER CARBONATE 800 MG POWD.PACK GT SCH ×3 (08:22→17:58)
[2022-04-01] MEDS ORDERED: DC PROPOFOL WHEN EXTUBATED XX PRN (09:00)
[2022-04-01 09:31] LABS: ABG BASE EXCESS -0.8 mmol/L; ABG OXYGEN SATURATION 93.8 % (92.0-98.5); ABG PCO2 36.9 mmHg (35.0-45.0); ABG PH 7.422 (7.350-7.450); AaDO2 82.1 mmHg; MetHb 0.3 % (0.0-1.5); O2Hb 92.6 % (94.0-97.0); SITE, ABG Right Radial; VENT MODE, BG T-PIECE 28%
--- NOTE | 2022-04-01 09:36 | NUR ---
Extubate per Dr Gonzalez
--- NOTE | 2022-04-01 09:38 | NUR ---
RT PER DR AHN PATIENT WAS EXTUBATED AND PLACED ON COOL AERO MASK. NO SOB AT THIS TIME.
[2022-04-01] MEDS: ACETYLCYSTEINE 10% SOLN 400 MG/4 ML VIAL NEB SCH ×3 (10:06→23:11)
--- NOTE | 2022-04-01 18:00 | NUR ---
Acute hypoxemic respiratory failure secondary to CHF improving. Extubated today. Remains hemodynamically stable. No distress post extubation. Cont Oral suctioning as needed. Encourage to CDB. End-stage renal disease. Continue HD as scheduled per nephrology Diabetes mellitus. Cont accucheck q6H. Cont ISS Overall clinically improved with adequate gas exchange, remains respiratory stability post extubation. aggressive pulmonary toilet. supplemental oxygen follow-up chest x-ray and ABG. Discuss plan of care with family
[2022-04-01] MEDS: AMIODARONE HCL 200 MG TABLET GT SCH (18:02)
--- NOTE | 2022-04-01 20:30 | NUR ---
RN OPENING NOTES RECEIVED IN BED, S/P EXTUBATION THIS MORNING, ON COOL AEROSOL 28% 5L, NO SOB/ACUTE DISTRESS NOTED, TOLERATING WELL, WITH 100% O2 AT THIS TIME, A/O TO SELF ABLE TO FOLLOWS COMMANDS, SINUS RHYTHM ON THE MONITOR, OFF RESTRAINS AT THIS TIME, NO ATTEMPT TO PULL ANY TUBINGS, IV ACCESS ON RIGHT UPPER ARM MIDLINE, DIALYSIS ACCESS ON LEFT UPPER ARM AV SHUN, . NASO GASTRIC TUBE IN PLACE RUNNING FEEDING ORDERED, FREQUENT SUCTION REQUIRING, WILL CONTINUE TO MONITOR CLOSELY.
[2022-04-01] MEDS: ATORVASTATIN 40 MG TABLET GT SCH (21:12)
[2022-04-02] VITALS (34 sets, daily range): BP systolic 101–140; BP diastolic 49–79
[2022-04-02] MEDS: ERYTHROMYCIN ETHYLSUCCINATE 200 MG/5 ML SUSPENSION GT SCH ×4 (03:41→21:40)
[2022-04-02] MEDS: IPRATROPIUM NEB FS 0.5 MG/2.5 ML AMPUL.NEB NEB SCH ×6 (03:43→23:41)
[2022-04-02] MEDS: ALBUTEROL HALF STRENGTH 1.25 MG/3 ML VIAL.NEB NEB SCH ×6 (03:43→23:41)
[2022-04-02 04:03] LABS: BASOPHILS # (AUTO) 0.1 K/uL (0.0-0.2); EOSINOPHILS % (AUTO) 1.8 % (0.0-6.0); HEMATOCRIT 24 % (39-51); HEMOGLOBIN 7.5 g/dL (13.5-17.5); LYMPHOCYTES # (AUTO) 0.6 K/uL (0.8-4.8); LYMPHOCYTES % (AUTO) 5.3 % (20.0-44.0); MEAN CORPUSCULAR HGB CONC 31 g/dl (31.0-36.0); MEAN CORPUSCULAR VOLUME 82 fL (80-96); MONOCYTES # (AUTO) 0.9 K/uL (0.1-1.30); MONOCYTES % (AUTO) 8.2 % (2.0-12.0); NEUTROPHILS # (AUTO) 9.6 K/uL (1.8-8.9); NEUTROPHILS % (AUTO) 83.7 % (43.0-81.0); PLATELET COUNT (AUTO) 424 K/uL (150-450); RED BLOOD CELL COUNT(AUTO) 2.94 MIL/uL (4.5-6.0); WHITE BLOOD COUNT (AUTO) 11.5 K/uL (4.3-11.0)
[2022-04-02 04:21] LABS: CALCIUM, SERUM 8.6 mg/dL (8.5-10.1); CREATININE 6.9 mg/dL (0.6-1.3); MAGNESIUM 3.1 mg/dL (1.8-2.4); POTASSIUM 4.6 mmol/L (3.5-5.1)
[2022-04-02] MEDS: BLOOD SUGAR DIAGNOSTIC 1 EACH STRIP IN SCH ×3 (05:18→16:39)
[2022-04-02] MEDS: INSULIN REGULAR, HUMAN 100 UNIT/ML 3 ML VIAL SQ PRN ×2 (05:19→16:43)
--- NOTE | 2022-04-02 06:33 | NUR ---
RN CLOSING NOTES PATIENT CONTINUE ON COOL AEROSOL 28% 5L, NO SOB/ACUTE DISTRESS NOTED DURING THE NIGHT, FREQUENT SUCTIONING PROVIDED FOR EXCESSIVE SECRETIONS, WITH OPTIMAL O2 DURING THE NIGHT, SINUS RHYTHM ON THE MONITOR, OFF RESTRAINS ALL NIGHT, NO ATTEMPT TO PULL ANY TUBINGS, IV ACCESS ON RIGHT UPPER ARM MIDLINE, DIALYSIS ACCESS ON LEFT UPPER ARM AV SHUNT NG TUBE IN PLACE RUNNING FEEDING ORDERED, ALL SAFETY PRECAUTIONS MAINTAINED, WILL ENDORSE CONTINUITY OF CARE TO ONCOMING NURSE.
[2022-04-02] MEDS: ACETYLCYSTEINE 10% SOLN 400 MG/4 ML VIAL NEB SCH ×3 (07:18→23:41)
[2022-04-02] MEDS: SEVELAMER CARBONATE 800 MG POWD.PACK GT SCH ×3 (08:07→16:33)
[2022-04-02] MEDS: DOCUSATE SODIUM LIQ 100 MG/10 ML UDC NG SCH ×2 (08:07→16:33)
[2022-04-02] MEDS: PANTOPRAZOLE 40 MG/PACK PACK GT SCH (08:07)
[2022-04-02] MEDS: ISOSORBIDE DINITRATE (20MG) 20 MG TABLET GT SCH ×2 (08:08→16:33)
[2022-04-02] MEDS: GABAPENTIN 100 MG CAPSULE GT SCH (08:09)
[2022-04-02] MEDS: CLOPIDOGREL BISULFATE 75 MG TABLET GT SCH (08:09)
[2022-04-02] MEDS ORDERED: EPOETIN ALFA-EPBX 10,000 UNIT/ML VIAL IV ONE (15:00)
--- NOTE | 2022-04-02 17:55 | NUR ---
Acute hypoxemic respiratory failure secondary to CHF improving. No Distress noted. Breathing comfortably. Remains hemodynamically stable. No distress noted. Cont Oral suctioning as needed. Encourage to CDB. End-stage renal disease. HD done. 1999 out. as scheduled per nephrology Diabetes mellitus. Cont accucheck q6H. Cont ISS Overall clinically improved with adequate gas exchange, remains respiratory stability post extubation. aggressive pulmonary toilet. supplemental oxygen follow-up chest x-ray and ABG. Discuss plan of care with family
[2022-04-02] MEDS: NEPRO 1,000 ML BOTTLE GT PRN (20:19)
[2022-04-02] MEDS: ATORVASTATIN 40 MG TABLET GT SCH (21:41)
--- NOTE | 2022-04-02 22:15 | NUR ---
EQUITY HOLDER LAST BM NOTED 03/19; OBTAINED ORDER FOR STOOL SOFTENER
[2022-04-02] MEDS: LACTULOSE 10 G/15 ML UDC (PYXIS) NG PRN (22:36)
[2022-04-03] VITALS (19 sets, daily range): BP systolic 94–126; BP diastolic 41–82
[2022-04-03] MEDS: BLOOD SUGAR DIAGNOSTIC 1 EACH STRIP IN SCH ×4 (00:22→18:07)
[2022-04-03] MEDS: INSULIN REGULAR, HUMAN 100 UNIT/ML 3 ML VIAL SQ PRN ×4 (00:24→18:08)
[2022-04-03] MEDS: IPRATROPIUM NEB FS 0.5 MG/2.5 ML AMPUL.NEB NEB SCH ×6 (03:26→23:43)
[2022-04-03] MEDS: ALBUTEROL HALF STRENGTH 1.25 MG/3 ML VIAL.NEB NEB SCH ×6 (03:26→23:43)
[2022-04-03] MEDS: ERYTHROMYCIN ETHYLSUCCINATE 200 MG/5 ML SUSPENSION GT SCH ×4 (03:34→21:56)
[2022-04-03 05:01] LABS: BASOPHILS # (AUTO) 0.1 K/uL (0.0-0.2); BASOPHILS % (AUTO) 0.7 % (0.0-2.0); HEMATOCRIT 26 % (39-51); HEMOGLOBIN 8.3 g/dL (13.5-17.5); LYMPHOCYTES # (AUTO) 0.5 K/uL (0.8-4.8); LYMPHOCYTES % (AUTO) 4.5 % (20.0-44.0); MEAN CORPUSCULAR HGB CONC 32 g/dl (31.0-36.0); MEAN CORPUSCULAR VOLUME 81 fL (80-96); MONOCYTES # (AUTO) 0.1 K/uL (0.1-1.30); MONOCYTES % (AUTO) 0.5 % (2.0-12.0); NEUTROPHILS # (AUTO) 10.3 K/uL (1.8-8.9); NEUTROPHILS % (AUTO) 88.3 % (43.0-81.0); PLATELET COUNT (AUTO) 457 K/uL (150-450); RED BLOOD CELL COUNT(AUTO) 3.23 MIL/uL (4.5-6.0); WHITE BLOOD COUNT (AUTO) 11.7 K/uL (4.3-11.0)
[2022-04-03 05:21] LABS: CALCIUM, SERUM 8.8 mg/dL (8.5-10.1); CREATININE 5.5 mg/dL (0.6-1.3); MAGNESIUM 2.9 mg/dL (1.8-2.4); PHOSPHORUS 3.9 mg/dL (2.5-4.9); POTASSIUM 4.4 mmol/L (3.5-5.1)
[2022-04-03] MEDS: LACTULOSE 10 G/15 ML UDC (PYXIS) NG PRN (05:39)
--- NOTE | 2022-04-03 06:23 | NUR ---
QUALITY IMPROVEMENT COORDINATOR (RN) PT ON ROOM AIR SINCE MIDNIGHT; TOLERATING WELL
--- NOTE | 2022-04-03 07:10 | NUR ---
VENEREAL DISEASE CONTROL HEAD OPENING NOTE: RECEIVED PT. IN BED, AWAKE, AOX2-3, ABLE TO VERBALIZE SIMPLE NEEDS. NO COMPLAINTS OF PAIN/DISCOMFORT AT THIS TIME. ON ROOM AIR, NO S/S OF RESPIRATORY DISTRESS. VICE PRESIDENT OF NURSING READS SINUS RHYTHM W/ 1ST DEGREE HB WITH HR OF 78 BPM AT THIS TIME. MULTIPLE SKIN ISSUES NOTED, WILL DO WOUND TREATMENT AND SKIN PRECAUTIONS ORDERED. PT. HAS NG-TUBE IN L NARE, SITE AND DRESSING C/D/I WITH NEPRO RUNNING AT 45 ML/HR, NO GASTRIC RESIDUAL NOTED. IV ACCESS ON KEYANNA MIDLINE; AND R FEMORAL MIDLINE, BOTH PATENT AND SALINE LOCKED, ALSO HAS L AV SHUNT, BRUIT AND THRILL NOTED. IV SITE DRESSINGS C/D/I WITH NO S/S OF INFILTRATION. SAFETY MEASURES IN PLACE: BED IN LOWEST AND LOCKED POSITION, HOB ELEVATED AT 45 DEGREES, BED ALARM ON, CALL LIGHT WITHIN REACH, SIDE RAILS UP X2. WILL TURN AND REPOSITION IN BED AT LEAST Q2H. WILL CONTINUE TO MONITOR PT. FOR ANY CHANGES.
[2022-04-03] MEDS: ACETYLCYSTEINE 10% SOLN 400 MG/4 ML VIAL NEB SCH ×3 (07:52→23:43)
[2022-04-03] MEDS: SEVELAMER CARBONATE 800 MG POWD.PACK GT SCH ×3 (08:17→17:04)
[2022-04-03] MEDS: PANTOPRAZOLE 40 MG/PACK PACK GT SCH (08:18)
[2022-04-03] MEDS: DOCUSATE SODIUM LIQ 100 MG/10 ML UDC NG SCH ×2 (08:18→17:04)
[2022-04-03] MEDS: GABAPENTIN 100 MG CAPSULE GT SCH (08:18)
[2022-04-03] MEDS: ISOSORBIDE DINITRATE (20MG) 20 MG TABLET GT SCH ×2 (08:18→17:00)
[2022-04-03] MEDS: CLOPIDOGREL BISULFATE 75 MG TABLET GT SCH (08:18)
[2022-04-03] MEDS: SORBITOL SOLUTION 70% 30 ML SOLUTION PO SCH (09:58)
[2022-04-03] MEDS: THERAHONEY GEL 1.5 OZ TUBE TP SCH (13:52)
--- NOTE | 2022-04-03 17:30 | NUR ---
PRIVACY MANAGERFOREST FIRE FIGHTER NOTE: PT. TRANSFERRED TO TELE ROOM # 113-2 VIA HOSPITAL BED AT 1730. REPORT GIVEN TO VEGETABLE FARM WORKER JAMIL AT BEDSIDE. PT. REMAINS IN BED, AWAKE, AOX2-3, ABLE TO VERBALIZE SIMPLE NEEDS. NO COMPLAINTS OF PAIN/DISCOMFORT AT THIS TIME. ON ROOM AIR, NO S/S OF RESPIRATORY DISTRESS. ASSEMBLY ASSOCIATE READS SINUS RHYTHM W/ 1ST DEGREE HB WITH HR OF 77 BPM AT THIS TIME. WOUND TREATMENT AND SKIN PRECAUTIONS DONE ORDERED. PT. STILL HAS NG-TUBE IN L NARE, SITE AND DRESSING C/D/I, CLAMPED. NO GASTRIC RESIDUAL NOTED. PT. NOW ON PUREED DIET, TOLERATING WELL. IV ACCESS ON KEYANNA MIDLINE; AND R FEMORAL MIDLINE, BOTH PATENT AND SALINE LOCKED, ALSO HAS L AV SHUNT, BRUIT AND THRILL NOTED. IV SITE DRESSINGS C/D/I WITH NO S/S OF INFILTRATION. SAFETY MEASURES MAINTAINED: BED IN LOWEST AND LOCKED POSITION, HOB ELEVATED AT 45 DEGREES, BED ALARM ON, CALL LIGHT WITHIN REACH, SIDE RAILS UP X2. TURNED AND REPOSITIONED IN BED AT LEAST Q2H. PT. CHART, MEDICATIONS AND BELONGINGS HANDED AT BEDSIDE. ENDORSED CONTINUITY OF CARE.
--- NOTE | 2022-04-03 17:45 | NUR ---
RN NOTE RECEIVED PATIENT FOR AMY.
--- NOTE | 2022-04-03 18:26 | NUR ---
RN CLOSING NOTE: PT. IN BED, AWAKE, AOX2-3, ABLE TO VERBALIZE SIMPLE NEEDS. NO COMPLAINTS OF PAIN/DISCOMFORT AT THIS TIME. ON ROOM AIR, NO S/S OF RESPIRATORY DISTRESS. ENVIRONMENTAL CONFLICT MANAGER READS SINUS RHYTHM . PT. HAS NG-TUBE IN L NARE, SITE AND DRESSING C/D/I, NO GASTRIC RESIDUAL NOTED. IV ACCESS ON KEYANNA MIDLINE; AND R FEMORAL MIDLINE, BOTH PATENT AND SALINE LOCKED, ALSO HAS L AV SHUNT, BRUIT AND THRILL NOTED. IV SITE DRESSINGS C/D/I WITH NO S/S OF INFILTRATION. SAFETY MEASURES IN PLACE: BED IN LOWEST AND LOCKED POSITION, HOB ELEVATED AT 45 DEGREES, BED ALARM ON, CALL LIGHT WITHIN REACH, SIDE RAILS UP X2. WILL ENDORSE TO NIGHT NURSE FOR AMY.
--- NOTE | 2022-04-03 19:39 | NUR ---
RN OPENING NOTE PT AWAKE AND ALERT. NONVERBAL BUT SHAKES HEAD TO ANSWER QUESTIONS. DAUGHTER AT BEDSIDE. PT GIVE APPLE SAUCE PER REQUEST. PT ABLE TO SWALLOW AN TOLERATE WELL. SKIN IS WARM AND DRY. RESPIRATIONS EVEN AND UNLABORED. NG TUBE INTACT IN L NARE. L AV SHUNT INTACT. R UPPER MIDLINE INTACT AND FLUSHED. R FEMORAL MIDLINE INTACT. SAFETY PRECAUTIONS IN PLACE. BED LOCKED AND AT LOWEST LEVEL WITH 2 RAILS UP. CALL LIGHT WITHIN REACH.
--- NOTE | 2022-04-03 21:06 | NUR ---
RN NOTE FOUND PT WITH NG TUBE DISLODGED. PT STATES THAT HE ACCIDENTALLY PULLED IT OUT POST BREATHING TX WHEN WIPING HIS NOSE. WILL GIVE MEDS PO.
[2022-04-03] MEDS: ATORVASTATIN 40 MG TABLET GT SCH (21:56)
[2022-04-04] VITALS: BP 112/59
[2022-04-04] MEDS: BLOOD SUGAR DIAGNOSTIC 1 EACH STRIP IN SCH ×4 (00:04→17:24)
[2022-04-04] MEDS: INSULIN REGULAR, HUMAN 100 UNIT/ML 3 ML VIAL SQ PRN ×4 (00:13→17:11)
[2022-04-04] MEDS: ALBUTEROL HALF STRENGTH 1.25 MG/3 ML VIAL.NEB NEB SCH ×6 (02:53→23:37)
[2022-04-04] MEDS: IPRATROPIUM NEB FS 0.5 MG/2.5 ML AMPUL.NEB NEB SCH ×6 (02:53→23:37)
[2022-04-04] MEDS: ERYTHROMYCIN ETHYLSUCCINATE 200 MG/5 ML SUSPENSION GT SCH ×4 (03:15→21:14)
[2022-04-04 04:00] VITALS: BP 109/53
--- NOTE | 2022-04-04 06:29 | NUR ---
RN CLOSING NOTE PT AWAKE AND ALERT. SKIN WARM AND DRY. RESPIRATIONS EVEN AND UNLABORED ON RA. HOB ELEVATED AND PT ABLE TO SELF SUCTION PRN. PT HAS NON PRODUCTIVE COUGH. L AV SHUNT INTACT. R UPPER ARM MIDLINE AND R FEMORAL MIDLINE INTACT. NO BM OR URINE PRODUCED DURING SHIFT. NO ACUTE SIGNS OF DISTRESS. DENIES OTHER NEEDS AT THIS TIME. BED LOCKED AND AT LOWEST LEVEL WITH 2 RAILS UP. CALL LIGHT WITHIN REACH.
--- NOTE | 2022-04-04 07:15 | NUR ---
CHANGE CONTROL MANAGER OPENING NOTES RECIEVED PT AWAKE IN BED AOX3 TAGALOG SPEAKING. NO COMPLAINTS OF PAIN OR DISCOMFORT AT THIS TIME. RESPIRATIONS ARE EQUAL AND UNLABORED WITH NO SOB. PT IS ON ROOM AIR AND TOLERATING IT WELL. PT IS PO WITH HIS MEDICATIONS CRUSHED AND GIVEN WITH APPLE SAUCE. IV ACCESS ON KEYANNA AND RIGHT FEMORAL MIDLINE PATENT AND INTACT. HOB ELEVATED TO 30-45 DEGREES. SIDERAILS UP AT ALL TIMES. CALL LIGHT WITHIN REACH. WILL CONTINUE TO MONITOR.
[2022-04-04 08:00] VITALS: BP 116/52
[2022-04-04] MEDS: ACETYLCYSTEINE 10% SOLN 400 MG/4 ML VIAL NEB SCH ×3 (08:08→23:37)
[2022-04-04] MEDS: DOCUSATE SODIUM LIQ 100 MG/10 ML UDC NG SCH ×2 (08:26→17:06)
[2022-04-04] MEDS: GABAPENTIN 100 MG CAPSULE GT SCH (08:26)
[2022-04-04] MEDS: PANTOPRAZOLE 40 MG/PACK PACK GT SCH (08:26)
[2022-04-04] MEDS: CLOPIDOGREL BISULFATE 75 MG TABLET GT SCH (08:26)
[2022-04-04] MEDS: SEVELAMER CARBONATE 800 MG POWD.PACK GT SCH ×3 (08:26→17:07)
[2022-04-04] MEDS: ISOSORBIDE DINITRATE (20MG) 20 MG TABLET GT SCH ×2 (08:27→17:00)
[2022-04-04] MEDS: THERAHONEY GEL 1.5 OZ TUBE TP SCH (08:33)
[2022-04-04] MEDS: SORBITOL SOLUTION 70% 30 ML SOLUTION PO SCH (10:13)
[2022-04-04 12:00] VITALS: BP 99/45
[2022-04-04 16:00] VITALS: BP 108/58
[2022-04-04] MEDS: AMIODARONE HCL 200 MG TABLET GT SCH (16:43)
[2022-04-04] MEDS ORDERED: NEPRO VAN 237 ML CAN PO PRN (17:00)
--- NOTE | 2022-04-04 18:19 | NUR ---
SUPERVISOR WOOD ROOM CLOSING NOTES ALL DUE MEDS AND TX GIVEN ORDERED. PT TOLERATED EVERYTHING WELL. PT IS ON RA AND TOLERATING IT WELL WITH 02 SATURATION AT 96%. IV ACCESS ON KEYANNA ML AND RIGHT FEMORAL ML PATENT AND INTACT. HOB ELEVATED TO 30-45 DEGREES. SIDERAILS UP AT ALL TIMES. CALL LIGHT WITHIN REACH. WILL ENDORSE TO ONCOMING NURSE.
--- NOTE | 2022-04-04 19:15 | NUR ---
RN NOTE Received patient in bed, on semi olvera's, daughter at bedside, AO x 4, in no acute distress, saturation at 96% on room air, SR on the monitor, HR is 78. KEYANNA and R femoral midline patent and flushing well, saline locked, L AV shunt in place, bruit and thrill present. Safety measures implemented, bed is locked and at lowest position, hob elevated, side rails up x 2, call light within reach of patient. Will continue to monitor and reassess.
[2022-04-04 20:00] VITALS: BP 112/50
[2022-04-04] MEDS: ATORVASTATIN 40 MG TABLET GT SCH (21:14)
[2022-04-05] VITALS: BP 117/61
[2022-04-05] MEDS: BLOOD SUGAR DIAGNOSTIC 1 EACH STRIP IN SCH ×4 (01:23→18:29)
[2022-04-05] MEDS: INSULIN REGULAR, HUMAN 100 UNIT/ML 3 ML VIAL SQ PRN ×4 (01:24→18:39)
[2022-04-05] MEDS: IPRATROPIUM NEB FS 0.5 MG/2.5 ML AMPUL.NEB NEB SCH ×6 (03:15→23:31)
[2022-04-05] MEDS: ALBUTEROL HALF STRENGTH 1.25 MG/3 ML VIAL.NEB NEB SCH ×6 (03:15→23:31)
[2022-04-05] MEDS: ERYTHROMYCIN ETHYLSUCCINATE 200 MG/5 ML SUSPENSION GT SCH ×4 (03:23→21:41)
[2022-04-05 04:00] VITALS: BP 111/48
--- NOTE | 2022-04-05 07:44 | NUR ---
RN OPENING NOTE PT AWAKE AND ALERT. NONVERBAL BUT SHAKES HEAD TO ANSWER QUESTIONS. SKIN IS WARM AND DRY. RESPIRATIONS EVEN AND UNLABORED. L AV SHUNT INTACT. R UPPER MIDLINE INTACT AND FLUSHED. SAFETY PRECAUTIONS IN PLACE. BED LOCKED AND AT LOWEST LEVEL WITH 2 RAILS UP. CALL LIGHT WITHIN REACH.
[2022-04-05] MEDS: ACETYLCYSTEINE 10% SOLN 400 MG/4 ML VIAL NEB SCH ×3 (07:52→23:31)
[2022-04-05] MEDS: SEVELAMER CARBONATE 800 MG POWD.PACK GT SCH ×3 (07:55→17:33)
[2022-04-05 08:00] VITALS: BP 111/52
[2022-04-05] MEDS: SORBITOL SOLUTION 70% 30 ML SOLUTION PO SCH (09:06)
[2022-04-05] MEDS: ISOSORBIDE DINITRATE (20MG) 20 MG TABLET GT SCH ×2 (09:08→17:32)
[2022-04-05] MEDS: DOCUSATE SODIUM LIQ 100 MG/10 ML UDC NG SCH ×2 (09:09→17:33)
[2022-04-05] MEDS: PANTOPRAZOLE 40 MG/PACK PACK GT SCH (09:09)
[2022-04-05] MEDS: CLOPIDOGREL BISULFATE 75 MG TABLET GT SCH (09:09)
[2022-04-05] MEDS: GABAPENTIN 100 MG CAPSULE GT SCH (09:09)
[2022-04-05] MEDS: THERAHONEY GEL 1.5 OZ TUBE TP SCH (09:13)
[2022-04-05] MEDS ORDERED: IV NS 0.9% 250 ML IV ONE (10:34)
[2022-04-05] MEDS ORDERED: CT SWABBABLE VALVE TRANS SET 1 EA INFUS.SET MC ONE (10:34)
[2022-04-05] MEDS ORDERED: IOHEXOL-350 100 ML VIAL IV ONE (10:34)
[2022-04-05] MEDS ORDERED: NITROGLYCERIN 0.4 MG/TAB BOTTLE ONE (10:54)
[2022-04-05] MEDS ORDERED: METOPROLOL TARTRATE INJ 5 MG/5 ML AMPUL ONE (10:54)
[2022-04-05] MEDS ORDERED: METOPROLOL TARTRATE INJ 5 MG/5 ML AMPUL IVP PRN (11:00)
[2022-04-05] MEDS ORDERED: NITROGLYCERIN 0.4 MG/TAB BOTTLE SL ONE (11:00)
[2022-04-05 12:00] VITALS: BP 94/49
--- NOTE | 2022-04-05 12:30 | NUR ---
RN NOTE SKIN TEAR NOTED ON PATIENT'S LEFT UPPER ARM NEXT TO THE TERMO CATH DIALYSIS SITE. THE SKIN TEAR IS DUE TO THE TAPE BY MENDY THE MINE NURSE REPORT. PATIENT'S LAS DALASIS WAS ON 04/02 OUTPUT WAS 2 LITERS.
[2022-04-05] MEDS: ALBUMIN 25% 25 GM in PREMIX 1 EA IV PRN (12:53)
[2022-04-05 16:00] VITALS: BP 107/48
--- NOTE | 2022-04-05 19:12 | NUR ---
RN CLOSING NOTE PT AWAKE AND ALERT. SKIN WARM AND DRY. RESPIRATIONS EVEN AND UNLABORED ON RA. HOB ELEVATED. PT HAS NON PRODUCTIVE COUGH. L AV SHUNT INTACT. R UPPER ARM MIDLINE AND R FEMORAL MIDLINE INTACT. NO ACUTE SIGNS OF DISTRESS. BED LOCKED AND AT LOWEST LEVEL WITH 2 RAILS UP. CALL LIGHT WITHIN REACH.
--- NOTE | 2022-04-05 19:43 | NUR ---
RN OPENING NOTE PT AWAKE AND ALERT X4. DAUGHTER AT BEDSIDE. RESPIRATIONS EVEN AND UNLABORED ON RA. SKIN IS WARM AND DRY. DENIES PAIN, SOB AND OTHER NEEDS AT THIS TIME. NSR ON SENIOR DIRECTOR INSIGHT. LUE AV SHUNT INTACT. IV ACCESS AT RUE AND RLE SALINE LOCKED. SAFETY PRECAUTIONS IN PLACE. BED LOCKED AND AT LOWEST LEVEL. X2 RAILS UP AND CALL LIGHT WITHIN REACH. BED ALARM ON.
[2022-04-05 20:00] VITALS: BP 101/52
[2022-04-05] MEDS: ATORVASTATIN 40 MG TABLET GT SCH (21:39)
[2022-04-05] MEDS: ACETAMINOPHEN 650 MG/20.3 ML UDC GT PRN (21:52)
[2022-04-06] VITALS: BP 103/51
[2022-04-06] MEDS: BLOOD SUGAR DIAGNOSTIC 1 EACH STRIP IN SCH ×5 (00:34→21:32)
[2022-04-06] MEDS: INSULIN REGULAR, HUMAN 100 UNIT/ML 3 ML VIAL SQ PRN ×4 (00:35→18:00)
[2022-04-06] MEDS: ERYTHROMYCIN ETHYLSUCCINATE 200 MG/5 ML SUSPENSION GT SCH ×4 (03:10→21:18)
[2022-04-06] MEDS: IPRATROPIUM NEB FS 0.5 MG/2.5 ML AMPUL.NEB NEB SCH ×6 (03:37→23:38)
[2022-04-06] MEDS: ALBUTEROL HALF STRENGTH 1.25 MG/3 ML VIAL.NEB NEB SCH ×6 (03:37→23:38)
[2022-04-06 04:00] VITALS: BP 115/60
--- NOTE | 2022-04-06 06:45 | NUR ---
RN CLOSING NOTE PT A&OX4. RESPIRATIONS EVEN AND UNLABORED ON RA. SKIN IS WARM AND DRY. C/O SORE THROAT. EDUCATED PT THAT PAIN IS NORMAL POST INTUBATION. NSR ON PEAR PICKER. LUE AV SHUNT INTACT. IV ACCESS AT RUE AND RLE SALINE LOCKED. NO FLUIDS GIVEN AT THIS TIME. PT ABLE TO SELF SUCTION. SAFETY PRECAUTIONS IN PLACE. BED LOCKED AND AT LOWEST LEVEL. X2 RAILS UP AND CALL LIGHT WITHIN REACH. BED ALARM ON.
[2022-04-06] MEDS: ACETYLCYSTEINE 10% SOLN 400 MG/4 ML VIAL NEB SCH ×3 (07:35→23:38)
[2022-04-06 08:00] VITALS: BP 118/60
[2022-04-06] MEDS: SEVELAMER CARBONATE 800 MG POWD.PACK GT SCH ×3 (09:15→17:53)
[2022-04-06] MEDS: DOCUSATE SODIUM LIQ 100 MG/10 ML UDC NG SCH ×2 (09:15→16:22)
[2022-04-06] MEDS: PANTOPRAZOLE 40 MG/PACK PACK GT SCH (09:15)
[2022-04-06] MEDS: ISOSORBIDE DINITRATE (20MG) 20 MG TABLET GT SCH ×2 (09:16→16:23)
[2022-04-06] MEDS: THERAHONEY GEL 1.5 OZ TUBE TP SCH (09:16)
[2022-04-06] MEDS: CLOPIDOGREL BISULFATE 75 MG TABLET GT SCH (09:16)
[2022-04-06] MEDS: GABAPENTIN 100 MG CAPSULE GT SCH (09:16)
[2022-04-06] MEDS: SORBITOL SOLUTION 70% 30 ML SOLUTION PO SCH (09:27)
[2022-04-06 12:00] VITALS: BP 86/43
--- NOTE | 2022-04-06 15:05 | NUR ---
RADHA RN NOTE PATIENT HAS LT ARM AV FISTULA AND RT ARM SUPERFICIAL THROMBOLIZER, LILIANA RN METAL ROASTER OK TO DI BLOOD PRESSURE ON LEGS
[2022-04-06 16:00] VITALS: BP 125/55
--- NOTE | 2022-04-06 17:02 | NUR ---
RECEIVED PATIENT ON ROOM AIR SATURATIONS AT 97-100%. ORDERED HHN TXS KRYSTLE WELL WITH NO ADVERSE REACTION NOTED.
--- NOTE | 2022-04-06 18:46 | NUR ---
RN CLOSING NOTE PT A&OX4 HARD OF HEARING. RESPIRATIONS EVEN AND UNLABORED ON RA. SKIN IS WARM AND DRY. COMPLAINS OF SORE THROAT. EDUCATED PT THAT PAIN IS NORMAL POST INTUBATION AND EXTUBATION. LUE AV SHUNT INTACT. IV ACCESS AT RUE AND RLE SALINE LOCKED. NO FLUIDS GIVEN AT THIS TIME. PT ABLE TO SELF SUCTION. SAFETY PRECAUTIONS IN PLACE. BED LOCKED AND AT LOWEST LEVEL. X2 RAILS UP AND CALL LIGHT WITHIN REACH. BED ALARM ON. WILL ENDORSE THE PATIENT TO THE ASSEMBLY ASSOCIATE NURSE FOR AMY.
--- NOTE | 2022-04-06 19:20 | NUR ---
RN OPENING NOTE PT AWAKE AND ALERT X4. DAUGHTER AT BEDSIDE. RESPIRATIONS EVEN AND UNLABORED ON RA. SKIN IS WARM AND DRY. DENIES PAIN, SOB AND OTHER NEEDS AT THIS TIME. NSR ON MANAGER SUSTAINABILITY. LUE AV SHUNT INTACT. IV ACCESS AT RUE AND RLE SALINE LOCKED. SAFETY PRECAUTIONS IN PLACE. BED LOCKED AND AT LOWEST LEVEL. X2 RAILS UP AND CALL LIGHT WITHIN REACH. BED ALARM ON.
[2022-04-06 20:00] VITALS: BP 104/58
[2022-04-06] MEDS ORDERED: DEXTROSE 50%-WATER 50 ML DISP.SYRIN IV PRN (20:30)
[2022-04-06] MEDS ORDERED: INSULIN REGULAR, HUMAN 100 UNIT/ML 3 ML VIAL SQ PRN (20:30)
[2022-04-06] MEDS: ATORVASTATIN 40 MG TABLET GT SCH (21:18)
[2022-04-06] MEDS: INSULIN REGULAR, HUMAN 100 UNIT/ML 3 ML VIAL SQ SCH (21:32)
[2022-04-07] VITALS: BP 103/55
[2022-04-07] MEDS: ERYTHROMYCIN ETHYLSUCCINATE 200 MG/5 ML SUSPENSION GT SCH ×2 (03:25→08:39)
[2022-04-07] MEDS: ALBUTEROL HALF STRENGTH 1.25 MG/3 ML VIAL.NEB NEB SCH ×4 (03:31→14:37)
[2022-04-07] MEDS: IPRATROPIUM NEB FS 0.5 MG/2.5 ML AMPUL.NEB NEB SCH ×4 (03:31→14:37)
[2022-04-07 04:00] VITALS: BP 114/60
[2022-04-07 06:38] LABS: BASOPHILS # (AUTO) 0.1 K/uL (0.0-0.2); BASOPHILS % (AUTO) 1.2 % (0.0-2.0); EOSINOPHILS % (AUTO) 5.3 % (0.0-6.0); HEMATOCRIT 21 % (39-51); LYMPHOCYTES # (AUTO) 0.7 K/uL (0.8-4.8); LYMPHOCYTES % (AUTO) 11.3 % (20.0-44.0); MEAN CORPUSCULAR HGB CONC 33 g/dl (31.0-36.0); MEAN CORPUSCULAR VOLUME 81 fL (80-96); MONOCYTES # (AUTO) 0.8 K/uL (0.1-1.30); MONOCYTES % (AUTO) 11.4 % (2.0-12.0); NEUTROPHILS # (AUTO) 4.7 K/uL (1.8-8.9); NEUTROPHILS % (AUTO) 70.8 % (43.0-81.0); PLATELET COUNT (AUTO) 350 K/uL (150-450); WHITE BLOOD COUNT (AUTO) 6.6 K/uL (4.3-11.0)
[2022-04-07] MEDS: BLOOD SUGAR DIAGNOSTIC 1 EACH STRIP IN SCH ×2 (07:35→12:01)
[2022-04-07 07:37] LABS: POTASSIUM 3.9 mmol/L (3.5-5.1)
[2022-04-07] MEDS: INSULIN REGULAR, HUMAN 100 UNIT/ML 3 ML VIAL SQ SCH (07:37)
[2022-04-07 07:42] LABS: HEMOGLOBIN 6.9 g/dL (13.5-17.5)
[2022-04-07] MEDS: SEVELAMER CARBONATE 800 MG POWD.PACK GT SCH ×2 (07:42→12:55)
[2022-04-07] MEDS: ACETYLCYSTEINE 10% SOLN 400 MG/4 ML VIAL NEB SCH ×2 (07:49→14:37)
[2022-04-07 08:00] VITALS: BP 114/55
[2022-04-07 08:00] LABS: CREATININE 8.3 mg/dL (0.6-1.3)
--- NOTE | 2022-04-07 08:00 | NUR ---
RADHA RN NOTE RT LEG MID LINE IN PLACE AND FLUSHED WELL , RT UPPER MID LINE IN PLACE AND SECURED
--- NOTE | 2022-04-07 08:00 | NUR ---
RN OPENING NOTE PT AWAKE AND ALERT X4. RESPIRATIONS EVEN AND UNLABORED ON RA. SKIN IS WARM AND DRY. DENIES PAIN, SOB AND OTHER NEEDS AT THIS TIME. NSR ON BUFFET ATTENDANT. LUE AV SHUNT INTACT. IV ACCESS AT RUE AND RLE SALINE LOCKED. SAFETY PRECAUTIONS IN PLACE. BED LOCKED AND AT LOWEST LEVEL. X2 RAILS UP AND CALL LIGHT WITHIN REACH. BED ALARM IN PLACE
--- NOTE | 2022-04-07 08:25 | NUR ---
RADHA RN NOTE MEDICATION GIVE ORDERED ASPIRATING PRECAUTION OBSERVED, ASSISTED TO EAT BREAKFAST USING THICKENING FOR LIQUIDS
[2022-04-07] MEDS: SORBITOL SOLUTION 70% 30 ML SOLUTION PO SCH (08:34)
[2022-04-07] MEDS: GABAPENTIN 100 MG CAPSULE GT SCH (08:34)
[2022-04-07] MEDS: DOCUSATE SODIUM LIQ 100 MG/10 ML UDC NG SCH (08:34)
[2022-04-07] MEDS: ISOSORBIDE DINITRATE (20MG) 20 MG TABLET GT SCH (08:36)
[2022-04-07] MEDS: CLOPIDOGREL BISULFATE 75 MG TABLET GT SCH (08:37)
[2022-04-07] MEDS: THERAHONEY GEL 1.5 OZ TUBE TP SCH (08:37)
[2022-04-07] MEDS: PANTOPRAZOLE 40 MG/PACK PACK GT SCH (08:37)
--- NOTE | 2022-04-07 08:54 | NUR ---
RADHA RN NOTE ALL MEDS GIVEN BY MOUTH PATIENT DONT HAVE G TUBE ,
--- NOTE | 2022-04-07 09:44 | NUR ---
RADHA RN NOTE HG 6.[address] BELL WILL TRANSFUSE 1 UNIT PRBC WILL F\U
[2022-04-07] MEDS ORDERED: BENZONATATE 100 MG CAPSULE PO PRN (10:00)
--- NOTE | 2022-04-07 10:12 | NUR ---
jane vasquez note reported to Beatriz vasquez aws developer hg 6.98 ok to hold Plavix also reported that patent still; coughing ordered to cont breathing tx and swallow eval, verified with Sean about isosorbide hold if sbp less then 110 Addendum: 04/07/22 at 1753 by OMEGA ALMEIDA RN REPORTED TO PETERSON VASQUEZ NP THAT PATINT COUGHING ORDERED CHEST X RAY, BREATHING TX AND SWALLOW EVAL WILL F\U
--- NOTE | 2022-04-07 10:48 | NUR ---
jane rn note on breathing tx all needs attended ,turn reposition
--- NOTE | 2022-04-07 11:50 | NUR ---
television production assistant note reposition done ,keep in comfortable position , keep clean dry , at bedside
[2022-04-07 12:00] VITALS: BP 110/31
--- NOTE | 2022-04-07 12:30 | NUR ---
telesales manager note called blood bank blood not ready yet
--- NOTE | 2022-04-07 13:00 | NUR ---
DELIVERY RECRUITER NOTE HAVING LUNCH , USING A THICKENER FOR FLUIDS ORDERED, AT BEDSIDE ,ATE 100%
--- NOTE | 2022-04-07 14:30 | NUR ---
telephone switchboard operator note wound care done, keep clean dry , daughter at bedside, all needs attended
--- NOTE | 2022-04-07 14:56 | NUR ---
telemarketer note keep clean dry on breathing tx as ordered family at bedside
[2022-04-07] MEDS ORDERED: ERYTHROMYCIN ETHYLSUCCINATE 200 MG/5 ML SUSPENSION PO SCH (15:00)
--- NOTE | 2022-04-07 15:00 | NUR ---
telecommunication tower technician note called blood bank , blood not ready yet, will f\u
--- NOTE | 2022-04-07 15:09 | NUR ---
rn telehealth note called to blood bank, blood not ready
--- NOTE | 2022-04-07 15:14 | NUR ---
patient vfib on monitor ,unresponsive,no pulse,code blue initiated.
--- NOTE | 2022-04-07 15:14 | NUR ---
telesales manager note noted patent unresponsive unable to response to verbal and tactile stimuli , called code blue team
--- NOTE | 2022-04-07 15:14 | NUR ---
noted patent unresponsive unable to response to verbal and tactile stimuli , called code blue team, cpr started immediately
--- NOTE | 2022-04-07 15:37 | NUR ---
RESTAURANT GREETER NOTE CODE BLUE ENDED, SEE CODE BLUE FORM .NO VS NOTED, PRONOUNCE BY ER DOCTOR SAKE ,FAMILY AT BEDSIDE DAUGHTER SPOKE WITH DOCTOR
--- NOTE | 2022-04-07 16:00 | NUR ---
SALES TRAINING REPRESENTATIVE NOTE CALLED PETERSON VASQUEZ ORGANIC SECTION TECHNICAL LEAD , SHE SPOKE WITH FAMILY, CALLED [facility] SPOKE WITH YOSVANY
[2022-04-07] MEDS ORDERED: EPINEPHRINE (1:10,000) SYRINGE 1 MG/10 ML DISP.SYRIN IVP ONE (16:30)
[2022-04-07] MEDS ORDERED: CALCIUM CHLORIDE 1,000 MG/10 ML DISP.SYRIN IV ONE (16:30)
[2022-04-07] MEDS ORDERED: DEXTROSE 50%-WATER 50 ML VIAL IV ONE (16:30)
[2022-04-07] MEDS ORDERED: AMIODARONE 150 MG/3 ML VIAL IV ONE (16:30)
[2022-04-07] MEDS ORDERED: Sodium Bicarbonate 50 MEQ/50 ML VIAL IV ONE (16:30)
[2022-04-07] MEDS ORDERED: DOCUSATE SODIUM LIQ 100 MG/10 ML UDC PO SCH (17:00)
[2022-04-07] MEDS ORDERED: ISOSORBIDE DINITRATE (20MG) 20 MG TABLET PO SCH (17:00)
--- NOTE | 2022-04-07 18:05 | NUR ---
MAYELIN VASQUEZ NOTE FAMILY SIGNED RELEASE FORM OF BELONGING AND TAKE PATENT TO [facility]
[2022-04-07 18:23] LABS: BAND % (MANUAL) 1 % (0.0-5.0); EOSINOPHILS % (MANUAL) 5 % (0-4); LYMPHOCYTES % (MANUAL) 6 % (16-48); MONOCYTES % (MANUAL) 7 % (0-11.0); NEUTROPHILS % (MANUAL) 81 (42-76)
--- NOTE | 2022-04-07 18:50 | NUR ---
UX LEAD NOTE POSTMORTEM CARE DONE
--- NOTE | 2022-04-07 19:00 | NUR ---
ADMIN ASST NOTE TAKEN BODY TO [facility] WITH SECURITY PERSONAL ,INSTRUCTED DAUGHTER AND TO CALL NURSING AQUATIC LABORER ABOUT MORTUARY ARRANGEMENT , STATED THAT WILL DO, PHONE NUMBER GIVEN , ALL BELONG TAKEN BY FAMILY
[2022-04-08] MEDS ORDERED: GABAPENTIN 100 MG CAPSULE PO SCH (09:00)
== END 2022-04-07 20:55 | DRG 264 ==
LOC: ER 08:19 → ICU 15:15 → TELE1 04-03 17:23 → TELE-TD 04-03 20:54 → TELE1 04-07 13:50
PROVIDERS: ADMIT Internal Medicine; ATTEND Nurse Practitioner Acute Care
PROC: 5A09357 Assistance with Respiratory Ventilation, Less than 24 Consecutive Hours, Continuous Positive Airway Pressure (ICD-10-PCS; 2022-03-14)
PROC: 5A1D70Z Performance of Urinary Filtration, Intermittent, Less than 6 Hours Per Day (ICD-10-PCS; 2022-03-14)
PROC: 5A1955Z Respiratory Ventilation, Greater than 96 Consecutive Hours (ICD-10-PCS; principal; 2022-03-16)
PROC: 0BH18EZ Insertion of Endotracheal Airway into Trachea, Via Natural or Artificial Opening Endoscopic (ICD-10-PCS; 2022-03-16)
PROC: 05HB33Z Insertion of Infusion Device into Right Basilic Vein, Percutaneous Approach (ICD-10-PCS; 2022-03-16)
PROC: 5A12012 Performance of Cardiac Output, Single, Manual (ICD-10-PCS; 2022-03-16)
PROC: 5A1D70Z Performance of Urinary Filtration, Intermittent, Less than 6 Hours Per Day (ICD-10-PCS; 2022-03-16)
PROC: 06HN33Z Insertion of Infusion Device into Left Femoral Vein, Percutaneous Approach (ICD-10-PCS; 2022-03-18)
PROC: 5A1D70Z Performance of Urinary Filtration, Intermittent, Less than 6 Hours Per Day (ICD-10-PCS; 2022-03-18)
PROC: 5A1955Z Respiratory Ventilation, Greater than 96 Consecutive Hours (ICD-10-PCS; 2022-03-21)
PROC: 0BH17EZ Insertion of Endotracheal Airway into Trachea, Via Natural or Artificial Opening (ICD-10-PCS; 2022-03-21)
PROC: 06HM33Z Insertion of Infusion Device into Right Femoral Vein, Percutaneous Approach (ICD-10-PCS; 2022-03-31)
PROC: 0JB70ZZ Excision of Back Subcutaneous Tissue and Fascia, Open Approach (ICD-10-PCS; 2022-04-04)
PROC: 5A12012 Performance of Cardiac Output, Single, Manual (ICD-10-PCS; 2022-04-07)
PROC: 0BH17EZ Insertion of Endotracheal Airway into Trachea, Via Natural or Artificial Opening (ICD-10-PCS; 2022-04-07)
DX: I13.2 Hypertensive heart and chronic kidney disease with heart failure and with stage 5 chronic kidney disease, or end stage renal disease (principal); I21.A1 Myocardial infarction type 2; I50.33 Acute on chronic diastolic (congestive) heart failure; N18.6 End stage renal disease; E43 Unspecified severe protein-calorie malnutrition; G93.41 Metabolic encephalopathy; J96.21 Acute and chronic respiratory failure with hypoxia; J96.22 Acute and chronic respiratory failure with hypercapnia; L89.153 Pressure ulcer of sacral region, stage 3; D68.59 Other primary thrombophilia; E87.29 Other acidosis; D63.8 Anemia in other chronic diseases classified elsewhere; E11.22 Type 2 diabetes mellitus with diabetic chronic kidney disease; E78.5 Hyperlipidemia, unspecified; E87.5 Hyperkalemia; E88.09 Other disorders of plasma-protein metabolism, not elsewhere classified; G62.9 Polyneuropathy, unspecified; I25.10 Atherosclerotic heart disease of native coronary artery without angina pectoris; I25.2 Old myocardial infarction; I25.5 Ischemic cardiomyopathy; I27.21 Secondary pulmonary arterial hypertension; I46.9 Cardiac arrest, cause unspecified; I49.01 Ventricular fibrillation; K21.9 Gastro-esophageal reflux disease without esophagitis; Z79.02 Long term (current) use of antithrombotics/antiplatelets; Z79.4 Long term (current) use of insulin; Z79.82 Long term (current) use of aspirin; Z79.899 Other long term (current) drug therapy; Z82.49 Family history of ischemic heart disease and other diseases of the circulatory system; Z83.3 Family history of diabetes mellitus; Z95.5 Presence of coronary angioplasty implant and graft; Z99.2 Dependence on renal dialysis; Z86.73 Personal history of transient ischemic attack (TIA), and cerebral infarction without residual deficits; R13.10 Dysphagia, unspecified; Z79.84 Long term (current) use of oral hypoglycemic drugs
CPT/HCPCS: 31720; 36410; 36415; 36600; 71045-TC; 75574; 80048-TC; 80076-TC; 80170-TC; 80202-TC; 82803-TC; 82962-TC; 83605-TC; 83735-TC; 83880; 84100-TC; 84478-TC; 84484-TC; 85025-TC; 85730-TC; 86706; 86850-TC; 87040-TC; 87081-TC; 87340; 90935-TC; 92526; 92611-TC; 92950-TC; 94003-TC; 94640-TC; 94668-TC; 94760-TC; 94762-TC; 94799-TC; 97112-TC; 97116-TC; 97530-TC; A4216; C9803; G0378; J0171; J0282; J0360; J0692; J0696; J0885; J1580; J1815; J2060; J2405; J3370; J3490; J7030; J7050; J7060; P9047; Q9967